=== PATIENT | female | born 1955 | race Caucasian/White ===

== ENCOUNTER → 2016-07-19 | Outpatient (CLI) | payer OTHER ==
[2016-07-19 11:53] LABS: Blood Urea Nitrogen 17 mg/dL (7-17); Non-African American GFR(MDRD) >60 (>60 ml/min/1.73 sqM)
== END | disposition home or self-care (01) ==
LOC: LABWHC1 10:41
PROVIDERS: ATTEND Orthopaedic Surgery Orthopaedic Surgery of the Spine
DX: Z01.812 Encounter for preprocedural laboratory examination (principal); N28.9 Disorder of kidney and ureter, unspecified
CPT/HCPCS: 36415; 82565; 84520

== ENCOUNTER → 2016-08-17 | Outpatient (CLI) | payer OTHER ==
[2016-08-17 10:15] LABS: EKG EKG PERFORMED
[2016-08-17 10:42] LABS: Basophils # (A) 0.1 k/uL (0-0.2); Basophils % (A) 1 %; CH 27.3; CHCM 32.8; Eosinophils # (A) 0.2 k/uL (0-0.7); Eosinophils % (A) 2 %; HCT 43.6 % (34.0-46.0); HDW 2.56; HGB 13.8 gm/dL (11.4-16.0); Luc # (Auto) 0.22; Luc % (Auto) 3; Lymphocytes # (A) 1.8 k/uL (1.0-4.8); Lymphocytes % (A) 23 %; MCH 26.5 pg (25.0-35.0); MCHC 31.6 g/dL (31.0-37.0); MCV 83.9 fL (80.0-100.0); Mean Platelet Volume 7.5; Monocytes # (A) 0.4 k/uL (0-1.0); Monocytes % (A) 6 %; Neutrophils # (A) 4.9 k/uL (1.3-7.7); Neutrophils % (A) 65 %; RDW 13.3 % (11.5-15.5); WBC 7.5 k/uL (3.8-10.6); WBC (Perox) 7.96
[2016-08-17 10:47] LABS: Appearance,Urine Clear (Clear); Bilirubin,Urine Negative (Negative); Glucose,Urine (UA) Negative (Negative); Ketones,Urine Negative (Negative); Leukocyte Esterase,Urine Negative (Negative); Nitrite,Urine Negative (Negative); PH, Urine 6.5 (5.0-8.0); Protein,Urine Negative (Negative); Specific Gravity,Urine 1.006 (1.001-1.035); UA Billing (MACRO vs. MICRO) CHEM; Urobilinogen,Urine <2.0 mg/dL (<2.0)
[2016-08-17 10:50] LABS: Partial Thromboplastin Time 23.1 sec (22.0-30.0); Prothrombin Time 10.1 sec (9.0-12.0)
[2016-08-17 11:06] LABS: Anion Gap 11 mmol/L; Blood Urea Nitrogen 26 mg/dL (7-17); Calcium 9.9 mg/dL (8.4-10.2); Carbon Dioxide 29 mmol/L (22-30); Chloride 98 mmol/L (98-107); Glucose 105 mg/dL (74-99); Non-African American GFR(MDRD) >60 (>60 ml/min/1.73 sqM); Potassium 5.2 mmol/L (3.5-5.1); Sodium 138 mmol/L (137-145)
--- NOTE | 2016-08-17 17:39 | XR ---
EXAMINATION TYPE: XR chest 2V DATE OF EXAM: 08/17/2016 10:18 AM COMPARISON: 09/22/2015 HISTORY: 61-year-old female preoperative evaluation for second spinal fusion. TECHNIQUE: Frontal and lateral views FINDINGS: The cardiomediastinal silhouette, aorta, and pulmonary vasculature are within normal limits. Some str matthew atelectasis in the lower lungs. Otherwise, lungs and pleural spaces are clear. IMPRESSION: No acute cardiopulmonary process.
== END | disposition home or self-care (01) ==
LOC: LABPAT 09:34
PROVIDERS: ATTEND Orthopaedic Surgery Orthopaedic Surgery of the Spine
DX: Z01.818 Encounter for other preprocedural examination (principal); Z01.810 Encounter for preprocedural cardiovascular examination; Z01.812 Encounter for preprocedural laboratory examination
CPT/HCPCS: 71020; 80048; 81003; 85025; 85610; 85730; 87070; 93005

== ENCOUNTER 2016-08-25 05:55 | Inpatient (IN) | payer OTHER ==
[2016-08-18 14:54] VITALS: BMI 30.6
[~2016-08-25 05:55] MED LIST: BACITRACIN 50,000 UNIT, POLYMYXIN B 500,000 UNIT in SODIUM CHLORIDE 0.9% IRRIGATIO 1,00... IRRIGATION ONE; DEXAMETHASONE SOD PHOSPHATE 10 MG/ML 1 ML VIAL IV ONE; HYDROmorphone 1 MG/ML 1 ML SYRINGE IVP PRN; LACTATED RINGERS 1,000 ML IV SCH; ONDANSETRON 4 MG/2 ML VIAL IVP ONE; ceFAZolin 2 GM in SODIUM CHLORIDE 0.9% 100 ML IVPB ONE
[2016-08-25] MEDS ORDERED: LIDOCAINE 1% 20 ML VIAL (10MG/ML) FOR IV START INTRADERMA ONE (06:43)
[2016-08-25] MEDS ORDERED: VANCOMYCIN 1,000 MG in SODIUM CHLORIDE 0.9% 250 ML IVPB STA (07:29)
[2016-08-25] MEDS ORDERED: ePHEDrine 50 MG/ML 1 ML AMP ONE (07:31)
[2016-08-25] MEDS ORDERED: PROPOFOL 10 MG/ML 20 ML VIAL IV ONE (07:31)
[2016-08-25] MEDS ORDERED: HYDROmorphone (PF) 1 MG/ML ONE (07:31)
[2016-08-25] MEDS ORDERED: MIDAZOLAM 2 MG/2 ML VIAL ONE (07:31)
[2016-08-25] MEDS ORDERED: GLYCOPYRROLATE 0.2 MG/ML 2 ML VIAL ONE (07:31)
[2016-08-25] MEDS ORDERED: SUCCINYLCHOLINE CHLORIDE 100 MG/5 ML SYR IV ONE (07:31)
[2016-08-25] MEDS ORDERED: LIDOCAINE 1% INJ 10MG/ML (20 ML MDV) ONE (07:31)
[2016-08-25] MEDS ORDERED: PHENYLEPHRINE-0.9% NACL SYG 1 MG/10 ML SYRINGE ONE (07:31)
[2016-08-25] MEDS ORDERED: fentaNYL (PF) 50 MCG/ML 2 ML AMP ONE (07:31)
[2016-08-25] MEDS ORDERED: FAMOTIDINE 20 MG/2 ML VIAL MISCELLANE ONE (08:05)
[2016-08-25] MEDS ORDERED: BUPIVACAINE (PF) 0.25% 30 ML VIAL SQ ONE ×2 (08:05→10:40)
[2016-08-25] MEDS ORDERED: GELATIN SPONGE,ABSORB (LARGE) 1 EACH SPONGE TOPICAL ONE (08:05)
[2016-08-25] MEDS ORDERED: LIDOCAINE 0.5%-EPI 1:200,000 50 ML VIAL SQ ONE (08:05)
[2016-08-25] MEDS ORDERED: LACTATED RINGERS 1,000 ML IV ONE ×4 (08:35→11:40)
[2016-08-25] MEDS ORDERED: THROMBIN (BOVINE) 5,000 UNIT VIAL MISCELLANE ONE (08:43)
--- NOTE | 2016-08-25 08:55 | XR ---
Intraoperative localization HISTORY: Needle localization Crosstable lateral view of the lumbar spine demonstrates localization device at the posterior L4 leve l. L4-5 anterolisthesis is noted.
--- NOTE | 2016-08-25 09:29 | XR ---
Intraoperative localization HISTORY: Needle localization Crosstable lateral view of the lumbar spine demonstrates localization device at the posterior L5 leve l. L4-5 anterolisthesis is noted.
--- NOTE | 2016-08-25 10:26 | XR ---
EXAMINATION TYPE: XR lumbar spine 2 or 3V DATE OF EXAM: 08/25/2016 10:11 AM CLINICAL HISTORY: Postop hardware placement TECHNIQUE: AP and lateral views of the lumbar spine are obtained intraoperatively. COMPARISON: None. FINDINGS: Pedicular screws are in place at L4 and L5. Intervertebral body spacers noted. Continued anterolisthe sis L4 and L5 of 6 mm. IMPRESSION: Postoperative the pedicular screw placement as noted.
[2016-08-25] MEDS ORDERED: BENZOCAINE/MENTHOL LOZENG 1 EACH LOZENGE MUCOUS MEM PRN (11:10)
[2016-08-25] MEDS ORDERED: HYDROmorphone 1 MG/ML 1 ML SYRINGE IVP PRN (11:10)
[2016-08-25] MEDS ORDERED: HYDROmorphone PCA 5 MG/25 ML SYRINGE IV PRN (11:10)
--- NOTE | 2016-08-25 11:31 | P.OP ---
Date of Procedure: 08/25/16 Preoperative Diagnosis: Spondylolisthesis L4 5 History of prior attempted decompression and fusion L4 5 History of prior wound infection of lumbar spine with subsequent removal of hardware and irrigation and debridement Low back pain with radiculopathy Pseudoarthrosis L4 5 Postoperative Diagnosis: Same No evidence of active infection at the lumbar spine site Pseudoarthrosis at L4 5 Procedure(s) Performed: Revision decompression laminectomy L4 5 Revision fusion L4 5 Exploration of fusion L4 5 with findings of pseudoarthrosis Iliac crest bone graft on the left through a separate fascial incision Local autogenous bone grafting Bone marrow aspiration through a separate fascial incision for left iliac crest Anesthesia: GETA Pathology: none sent Condition: stable Disposition: PACU Description of Procedure: BRIEF OPERATIVE NOTE Preoperative Diagnosis: Spondylolisthesis L4 5, low back pain with lower extremity radiculopathy, history of prior attempted fusion L4 5, history of prior lumbar wound infection with subsequent irrigation and debridement and removal of hardware at L4 5, possible pseudoarthrosis L4 5 Postoperative Diagnosis: Same with findings of pseudoarthrosis L4-L5 Procedure: Revision Laminectomy and decompression L4 5 Revision Posterior lateral decompression and fusion L4 5 Iliac crest bone grafting on the left through separate fascial incision Bone marrow aspiration left iliac crest through separate fascial incision Local autogenous bone grafting Expiration of fusion L4 5 with findings of pseudoarthrosis Use of Cell Saver Use of bone graft extenders Use of neuro monitoring Surgeon: Dr. Palacio Military Equipment Specialist: Robert Arguelles is present throughout the entire the case persistence during positioning, dissection, exposure, visualization, and all crucial elements of the case as well as closure. Anesthesia: General anesthesia Estimated blood loss: Approximately 200 mL Complications: None apparent Components implanted: K2M titanium pedicle screw system, osteoamp bone sponge and chips to supplement the autogenous bone graft and bone marrow aspirate Disposition: To recovery room in good stable condition. OPERATIVE INDICATIONS The patient has had long-standing issues in their lower back and lower extremities. We'll see the patient in the past for her spondylolisthesis and low back and lower extremity issues and she ultimately underwent decompression and fusion at L4 5 over a year ago. She initially had very good results and was very happy with her initial improvement and felt more stable with improvement at her lower extremities. However several months after her surgery she started to develop skin changes and evidence of infection versus ALLERGY. She had significant workup and was on antibiotics but was not having benefit for this. With her worsening symptoms despite aggressive conservative treatment without it would be best for her to proceed with removal of the hardware from L4 5. She had this done with irrigation and debridement and subsequently had long-term antibiotics and resolution of her symptoms and clearing and her skin with findings of a staph epi infection which was treated with the surgery and long-term IV antibiotics. She had clearing of her infection. Unfortunately the patient showed evidence of recurrence of her spondylolisthesis and evidence of pseudoarthrosis at L4 5 after removal of her hardware and had worsening of her pain at her back and to her lower extremities. Her pain was worse with any sort of activity and causing severe debility for her which is felt to be due to the instability at L4 5. It was somewhat unclear as to the cause of the infectious process late after the surgery and apparent stabilization at the area. She went through testing for metals as well as infectious workup given the various issues involved including her exposure to multiple animals despite her meticulous care and cleaning for those. With the patient's worsening symptoms and evidence of instability she again entered significant conservative management to try to treat this but was not having any long-term improvement. The patient has been through conservative treatment. We discussed various treatment options including surgery, and the patient wishes to proceed with revision surgery. I discussed with her the idea possibly seeking further treatment at a tertiary facility given her issues. I discussed these issues with her and her at length. We discussed the risk, patient's alternatives and benefits of surgery including but not limited to, risk of bleeding risk of infection, risk of need for further surgery, risk of decreased, loss of motion, muscle function, malunion nonunion, hardware failure, nerve damage, paralysis, heart attack, blindness and . We also had long discussions regards to the fact that surgery may not alleviate her symptoms and she wishes to proceed with surgical intervention. OPERATIVE SUMMARY After discussing all the risks, patient alternatives and benefits at length, the patient elected to proceed with surgical intervention, signed informed consent, and presented for their procedure. The patient was seen and examined in the preoperative holding area and the surgical site was marked. The patient was given antibiotics and brought to the operating room. The patient was sedated and intubated by anesthesia in standard fashion. The patient was positioned on to the operating room table in a prone position on the appropriate frame which was well-padded and well molded. We were careful to pad any bony prominences and pressure points. We were careful to maintain the patient's cervical spine and good neutral alignment and position throughout. The patient was prepped and draped in a normal standard fashion. An appropriate timeout and keystone protocol performed. We were able to proceed with the surgery. The local wound area was infiltrated with local anesthetic. An incision was made at the midline longitudinally over the appropriate levels utilizing the prior incision over L4 5. Dissection was taken down subcutaneously to the level of the fascia which was split midline. There was severe scar tissue formation and brought to the local anatomy was somewhat distorted. Dissection was taken over the lamina bilaterally over the facet joints and to the transverse processes. There was some bony formation in the posterior lateral gutters and I was able to explore the bony formation but there is found to be motion at L4 5 confirming the pseudoarthrosis. Multiple Intraoperative x-ray was taken which showed a marker at the appropriate level and showing appropriate space over the pedicles at L4 5 With the appropriate level positively confirmed, we were able to proceed with placement of the pedicle holes and screws. I was able to find the prior screw holes at L4 and L5 on the left and L5 on the right and I had to establish a new screw hole at L4 on the right. The patient had all their twitches back. The wound was copiously irrigated and suctioned dry as had been done periodically throughout the case. Screw holes were established similarly at each level. A sharp awl was used to establish the starting hole. It was palpated and found to have good for arroyo and good base. A monitored Steffee probe was used to establish the pedicle hole. It was positioned so there was no stimulation at 12 mA. The hole was palpated and found to have good for arroyo and a good base. The hole was tapped with the appropriate sized tap going up in size using a 6.5 tap in preparation for a 7.5 mm screw. The transverse process and the bone growth around the facets was decorticated with a high-speed bur. I was able to use these holes to place the appropriate size screw and good alignment and good position with good bony purchase. When the screws were inserted there were stimulated, and found to have no stimulation at 30 mA. I was able to turn my attention to the decompression. decompression was performed with a combination of rongeurs, curettes, Kerrison rongeurs and a ball -tip feeler. All of the bone that was removed was stripped and morcellized for use as autogenous bone graft later in the case. I was able to remove some lamina and scar tissue and I was able to obtain good central decompression . There is no evidence of dural tear or leak. Good hemostasis was maintained. The wound was irrigated and suctioned dry. The wound was irrigated and suctioned dry. With the hardware intact, intraoperative x-ray was again taken which showed good alignment and position of the hardware at the appropriate levels at L4 5. We were then able to measure, contour and place the rods and appropriate hardware bilaterally. I was able to place capcrews, tighten them down, and shear them off appropriately. The sheared portion was counted and accounted for. With this intact I was able to place the autogenous bone graft from the iliac crest as well as the osteoamp sponge and chips which were soaked in bone marrow aspirate along with the local autogenous graft with additional bone graft enhancer as necessary into the posterior lateral gutters bilaterally. With the bone graft intact, a stable construct, and good decompression at the appropriate levels, we were able to proceed with closure. Good hemostasis was maintained. There is no evidence of dural tear or leak. The fascia was closed for a watertight closure. The subcutaneous tissue was closed over a superficial drain. The subcuticular tissue was closed with absorbable suture. The wound was cleaned and dried and dressed with the appropriate dressing. The drapes were broken down. The patient was gently rolled back onto their hospital bed being careful to maintain their cervical spine and good neutral alignment and position. They were woken up by anesthesia, extubated, and brought to the recovery room in good stable condition. The patient will be admitted to the hospital for appropriate postoperative care , medical management and monitoring. We will continue to follow them closely about the postoperative course.
[2016-08-25] MEDS: ONDANSETRON 4 MG/2 ML VIAL IVP PRN (11:54)
[2016-08-25] MEDS ORDERED: VANCOMYCIN 1,250 MG in SODIUM CHLORIDE 0.9% 250 ML IVPB SCH (12:00)
[2016-08-25] MEDS ORDERED: PROMETHAZINE INJ 25 MG/ML 1 ML VIAL IVPB ONE (12:05)
[2016-08-25] MEDS: MIDAZOLAM 2 MG/2 ML VIAL IVP ONE ×2 (12:20→12:55)
[2016-08-25] MEDS: SODIUM CHLORIDE 0.9% 1,000 ML IV SCH (14:18)
[2016-08-25] MEDS: NEOMY-BACIT-POLYMX-HC OPHTH OINT 3.5 GM TUBE LEFT EYE SCH ×3 (18:29→20:38)
[2016-08-25] MEDS: SYMBICORT 160-4.5 MCG INHALER INHALATION SCH (19:31)
[2016-08-25] MEDS: CIPROFLOXACIN 0.3% OPHTH SOLN 2.5 ML BTL LEFT EYE SCH (20:37)
[2016-08-25] MEDS: DIAZEPAM 5 MG TAB PO PRN (20:57)
[2016-08-25] MEDS: VANCOMYCIN 1,250 MG in SODIUM CHLORIDE 0.9% 250 ML IVPB SCH (20:58)
--- NOTE | 2016-08-25 21:41 | P.CONS ---
History of Present Illness - Reason for Consult Consult date: 08/25/16 - Chief Complaint History of infection to her back - History of Present Illness Very pleasant 61-year-old woman who is known to me from her hospitalizations of last year and her office care after. When she was first evaluated she's having difficulty with severe ongoing back pain with radicular symptoms. She had severe L4-L5 disease. Then after symptomatic and conservative therapy she remained with significant discomfort and consequently in May 2015 underwent a L4-L5 decompression and fusion. After the surgery she had several areas that opened and gave her difficulty there were raised and erythematous and uncomfortable because of this she was taken to the operating room and her hardware was removed with concerns to infection as well as ALLERGY. There is concerned to ALLERGY to some components of the implant. The patient eventually was treated for the potential for an infection and had extensive wound care. After the extensive wound care she eventually healed the very atypical skin eruption that occurred. It was very uncomfortable with significant burning component. She is in well over time. Is now been admitted for revision L4-L5 fusion is of ongoing pain and compression from the disease. Concerns to recurrence of his skin condition. The patient was seen preoperatively and was given mupirocin as well as Hibiclens. Received antibiotic therapy with vancomycin for prophylaxis. She is now postoperative and doing remarkably well. 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 Review of Systems HEENT:Denies headache or acute visual change. Denies sinus or mouth discomforts. Denies neck stiffness or pain. Denies significant oral cavity pain. Denies difficulty on swallowing. Lungs: Denies significant shortness of breath, cough, sputum production, or hemoptysis. Cardiovascular: Denies significant shortness of breath, chest pain, chest wall pain, orthopnea, dyspnea on exertion, syncope Gastrointestinal:Denies nausea, vomiting, diarrhea, constipation, hematemesis, melena, hematochezia. No no significant change of bowel habit noticed. Musculoskeletal: denies significant myalgias or arthralgias. No new joint swelling. Has chronic back pain. Skin: No current complaints. But is concerned that she'll have recurrence of her skin lesions. Neuro: Denies headache or visual change. Denies any new onset weakness or difficulty with ambulation. Denies falls or seizures. Psychiatric:Denies anxiety or depression. Endocrine: Denies significant fatigue, denies significant weight loss or weight gain. Past Medical History Past Medical History: Cancer, COPD, GERD/Reflux, Hyperlipidemia, Hypertension, Osteoarthritis (OA), Pneumonia, Thyroid Disorder Additional Past Medical History / Comment(s): SPONDYLOLISTHESIS, migraines, " occ heart races", dry skin, hx skin cancer, spinal stenosis, degenerative disk disease(has brace), History of Any Multi-Drug Resistant Organisms: None Reported Past Surgical History: Back Surgery, Hysterectomy, Orthopedic Surgery, Tonsillectomy Additional Past Surgical History / Comment(s): 05-28-15 LAMINECTOMY AND DECOMPRESSION L4-5(got staph infecton and had hardware removed 09/20/15), PORFIRIO BUNIONECTOMY, porfirio CARPAL TUNNEL, Past Anesthesia/Blood Transfusion Reactions: Motion Sickness, Postoperative Nausea & Vomiting (PONV) Past Psychological History: No Psychological Hx Reported Additional Psychological History / Comment(s): HX DYSLEXIA Smoking Status: Former smoker Past Alcohol Use History: None Reported Additional Past Alcohol Use History / Comment(s): quit smoking 2001, smoked for 33 yrs- up to 3 PPD, Past Drug Use History: None Reported - Past Family History Sister(s) Family Medical History: Cancer Mother Family Medical History: COPD Additional Family Medical History / Comment(s): EMPHYSEMA Father Family Medical History: Myocardial Infarction ([place]) Medications and Allergies Home Medications and Allergies Comment(s): Current Medications Amitriptyline HCl (Elavil) 150 mg PO HS [facility] Benzocaine/Menthol (Cepacol Lozenge) 1 each MUCOUS MEM Q4HR PRN PRN Reason: Sore Throat Budesonide/Formoterol Fumarate (Symbicort 160-4.5 Mcg Inhaler) 2 puff INHALATION RT-BID [facility] Last Admin: 08/25/16 19:31 Dose: Not Given Cholecalciferol (Vitamin D3) 2,000 unit PO DAILY [facility] Ciprofloxacin (Cipro Ophth Soln) 1 drops LEFT EYE Q4HR [facility] Last Admin: 08/25/16 20:37 Dose: 1 drops Diazepam (Valium) 5 mg PO QID PRN PRN Reason: Anxiety Last Admin: 08/25/16 20:57 Dose: 5 mg Ezetimibe (Zetia) 10 mg PO DAILY [facility] Lisinopril/HCTZ (Zestoretic 20-25) 1 each PO DAILY [facility] Hydromorphone HCl (Dilaudid) 0.5 mg IVP Q4HR PRN PRN Reason: Pain Hydromorphone HCl (Dilaudid) 1 mg IVP Q4HR PRN PRN Reason: Pain Hydromorphone HCl (Dilaudid Food Stylist) 0.1 mg IV PER PROTOCOL PRN; Protocol PRN Reason: Pain Last Admin: 08/25/16 13:59 Dose: 0.1 mg Sodium Chloride (Saline 0.9%) 1,000 mls @ 75 mls/hr IV .[id number] [facility] Last Admin: 08/25/16 14:18 Dose: 75 mls/hr Vancomycin HCl 1,250 mg/ (Sodium Chloride) 250 mls @ 125 mls/hr IVPB Q24HR@ 2200 [facility] Last Admin: 08/25/16 20:58 Dose: 125 mls/hr Levothyroxine Sodium (Synthroid) 100 mcg PO DAILY@0630 [facility] Montelukast Sodium (Singulair) 10 mg PO DAILY [facility] Multivitamins (Theragran) 1 each PO DAILY@1200 [facility] Neomycin/Polymyxin/Bacitr/Hydrocort (Cortisporin Ophth Oint) 1 applic LEFT EYE Q3HR [facility] Last Admin: 08/25/16 20:38 Dose: 1 applic Ondansetron HCl (Zofran) 4 mg IVP Q8HR PRN PRN Reason: Nausea Last Admin: 08/25/16 11:54 Dose: 4 mg Tizanidine HCl (Zanaflex) 4 mg PO Q4HR PRN PRN Reason: Muscle Spasm Home Medications Medication Instructions Recorded Confirmed Type Cholecalciferol [Vitamin D3] 2,000 unit PO DAILY 05/19/15 08/25/16 History Levothyroxine Sodium [Synthroid] 100 mcg PO DAILY 05/19/15 08/25/16 History Lisinopril/Hydrochlorothiazide 1 tab PO DAILY 09/20/15 08/25/16 History [Zestoretic 20-25 mg Tablet] Amitriptyline HCl [Elavil] 150 mg PO HS 08/18/16 08/25/16 History Ezetimibe [Zetia] 10 mg PO DAILY 08/18/16 08/25/16 History Mometasone/Formoterol [Dulera 200 2 puff INHALATION RT-BID 08/18/16 08/25/16 History Mcg/5 Mcg Inhaler] Montelukast [Singulair] 10 mg PO DAILY 08/18/16 08/25/16 History Multivit-Min/FA/Lycopene/Lut 1 tab PO DAILY 08/18/16 08/25/16 History [Centrum Silver Tablet] tiZANidine [Zanaflex] 4 mg PO Q4HR PRN 08/18/16 08/25/16 History Mupirocin 2% Oint [Bactroban 2% 1 applic NASAL BID 08/25/16 08/25/16 History Oint] Allergies Allergy/AdvReac Type Severity Reaction Status Date / Time acetaminophen Allergy Rash/Hives Verified 08/18/16 14:39 [From Darvocet-N] aspirin Allergy Rash/Hives Verified 08/18/16 14:39 [From Empirin W/Codeine] azithromycin Allergy Rash/Hives Verified 08/18/16 14:39 baclofen Allergy Rash/Hives Verified 08/18/16 14:39 butalbital [From Fioricet] Allergy Rash/Hives Verified 08/18/16 14:39 caffeine [From Fioricet] Allergy Rash/Hives Verified 08/18/16 14:39 codeine Allergy Rash/Hives Verified 08/18/16 14:39 codeine phosphate Allergy Rash/Hives Verified 08/18/16 14:39 [From Empirin W/Codeine] cyclobenzaprine HCl Allergy Rash/Hives Verified 08/18/16 14:39 [From Flexeril] etodolac [From Lodine] Allergy Rash/Hives Verified 08/18/16 14:39 ezetimibe [From Vytorin] Allergy Rash/Hives Verified 08/18/16 14:39 flurazepam HCl [From Dalmane] Allergy Rash/Hives Verified 08/18/16 14:39 hydrocodone [From [place]] Allergy Rash/Hives Verified 08/18/16 14:40 hydrocodone bitartrate Allergy Rash/Hives Verified 08/18/16 14:39 [From Vicodin] ketorolac tromethamine Allergy Rash/Hives Verified 08/18/16 14:39 [From Toradol] meperidine HCl [From Demerol] Allergy Rash/Hives Verified 08/18/16 14:39 orphenadrine citrate Allergy Rash/Hives Verified 08/18/16 14:39 [From Norflex] Penicillins Allergy Rash/Hives Verified 08/18/16 14:39 pentazocine lactate Allergy Rash/Hives Verified 08/18/16 14:39 [From Talwin] propoxyphene HCl Allergy Rash/Hives Verified 08/18/16 14:39 [From Darvon] propoxyphene napsylate Allergy Rash/Hives Verified 08/18/16 14:39 [From Darvocet-N] simvastatin [From Vytorin] Allergy Rash/Hives Verified 08/18/16 14:39 Physical Exam Vitals: Vital Signs Temp Pulse Pulse Pulse Resp BP Pulse Ox 08/25/16 16:48 97.8 F 80 18 127/60 98 08/25/16 16:00 16 08/25/16 13:23 98.3 F 90 16 171/83 96 08/25/16 13:15 82 16 101/46 97 08/25/16 13:00 91 16 89/45 97 08/25/16 12:45 90 16 89/50 95 08/25/16 12:30 86 16 90/54 95 08/25/16 12:15 86 16 86/55 94 L 08/25/16 12:03 91 16 112/58 08/25/16 11:48 92 16 102/56 96 08/25/16 11:33 87 16 86/54 100 08/25/16 11:18 97 F L 82 18 102/55 100 08/25/16 06:40 98.1 F 80 16 98 Intake and Output 08/25/16 08/25/16 08/25/16 06:59 14:59 22:59 Intake Total 3152 Output Total 775 440 Balance 2377 -440 Intake: IV 3092 Sodium Chloride 0.9% 1, 40 000 ml @ 75 mls/hr IV . [id number] [facility] Rx#:[id number] Oral 60 Output: Drainage 90 Back 90 Urine 525 350 Estimated Blood Loss 250 Other: Voiding Method Indwelling Catheter Weight 73.482 kg Patient Weight 08/26/16 06:59 Weight 73.482 kg 61-year-old woman who is somewhat uncomfortable. However she does not appear toxic HEENT: Anicteric conjunctiva are pink and moist nasal mucosa grossly intact without significant lesions, there is no thrush. Neck: The neck is supple without significant lymphadenopathy or thyromegaly. Lungs: Symmetrical air entry. Few expiratory wheezes are scattered. No bronchial sounds. No dullness or egophony. Heart: Regular rate and rhythm with an audible S1-S2, soft S4. There is no significant murmur click or rub, PMI was nondisplaced. Abdomen: Positive bowel sounds soft and nontender without palpable masses or organomegaly. There was no guarding or rebound. Extremities: The upper extremities have excellent pulses they are symmetric, no significant petechiae or telangiectasia. No splinter hemorrhages were noted. The lower extremities are free from significant edema. The peripheral pulses were 2+ and symmetric. Neuro: Awake alert oriented to person place and time. There are no acute new gross focal sensory motor deficits. The back is evidence of the surgical dressing in place. The drainage tube is still in place with a sanguinous drainage being noted. Results CBC & Chem 7: 08/25/16 06:43 Assessment and Plan (1) Spinal stenosis at L4-L5 level Narrative/Plan: 61-year-old woman presents to Hospital for surgical correction of her ongoing L4 -L5 spinal stenosis. She had prior laminectomy and hardware. Concern is to become infected and was removed. His worsening symptoms and his remitted to further stabilization to improve her severe pain syndrome. Postoperatively she is doing well. She did have a significant skin eruption after her last surgery. We'll monitor closely. Received antibiotic prophylaxis with vancomycin. And tolerated that well. She will need extensive counseling after discharge about her activity and limitations to prevent rapid reinjury. Status: Acute
[2016-08-25] MEDS: HYDROmorphone 1 MG/ML 1 ML SYRINGE IVP PRN (21:49)
[2016-08-25] MEDS: AMITRIPTYLINE HCL 50 MG TAB PO SCH (22:00)
[2016-08-26] MEDS: HYDROmorphone 1 MG/ML 1 ML SYRINGE IVP PRN ×2 (01:07→04:37)
[2016-08-26] MEDS: CIPROFLOXACIN 0.3% OPHTH SOLN 2.5 ML BTL LEFT EYE SCH ×7 (01:08→23:53)
[2016-08-26] MEDS: NEOMY-BACIT-POLYMX-HC OPHTH OINT 3.5 GM TUBE LEFT EYE SCH ×9 (01:09→23:53)
[2016-08-26] MEDS: SODIUM CHLORIDE 0.9% 1,000 ML IV SCH (04:42)
[2016-08-26] MEDS: ONDANSETRON 4 MG/2 ML VIAL IVP PRN (06:28)
[2016-08-26] MEDS: DIAZEPAM 5 MG TAB PO PRN ×2 (07:20→21:05)
[2016-08-26 07:24] LABS: Basophils % (A) 0 %; CH 26.9; CHCM 32.1; Eosinophils % (A) 0 %; HCT 37.2 % (34.0-46.0); HDW 2.55; HGB 11.6 gm/dL (11.4-16.0); Luc # (Auto) 0.22; Luc % (Auto) 2; Lymphocytes # (A) 1.1 k/uL (1.0-4.8); Lymphocytes % (A) 10 %; MCH 26.4 pg (25.0-35.0); MCHC 31.3 g/dL (31.0-37.0); MCV 84.4 fL (80.0-100.0); Mean Platelet Volume 6.7; Monocytes # (A) 0.6 k/uL (0-1.0); Monocytes % (A) 6 %; Neutrophils # (A) 8.6 k/uL (1.3-7.7); Neutrophils % (A) 81 %; RDW 13.3 % (11.5-15.5); WBC 10.6 k/uL (3.8-10.6); WBC (Perox) 11.43
[2016-08-26] MEDS: SYMBICORT 160-4.5 MCG INHALER INHALATION SCH ×2 (07:43→19:16)
[2016-08-26 07:45] LABS: Anion Gap 8 mmol/L; Blood Urea Nitrogen 13 mg/dL (7-17); Calcium 8.6 mg/dL (8.4-10.2); Carbon Dioxide 27 mmol/L (22-30); Chloride 97 mmol/L (98-107); Glucose 132 mg/dL (74-99); Non-African American GFR(MDRD) >60 (>60 ml/min/1.73 sqM); Potassium 4.1 mmol/L (3.5-5.1); Sodium 132 mmol/L (137-145)
[2016-08-26] MEDS: MONTELUKAST 10 MG TAB PO SCH (07:48)
[2016-08-26] MEDS: CHOLECALCIFEROL 1,000 UNIT TAB PO SCH (07:48)
[2016-08-26] MEDS: LEVOTHYROXINE 100 MCG TAB PO SCH (07:48)
[2016-08-26] MEDS: EZETIMIBE 10 MG TAB PO SCH (07:48)
[2016-08-26] MEDS ORDERED: LISINOPRIL-HCTZ 20-25 MG 1 EACH TAB PO SCH (09:00)
--- NOTE | 2016-08-26 10:19 | P.PN ---
Progress Note - Text Postoperative day #1 Patient is seen and examined today at bedside. The patient has some pain around the surgical site as expected. Pain is being controlled with medication. She has been able to train in the hallway with physical therapy and feels comfortable with her ambulation. She is wearing her brace. She is doing well with her legs and has soreness at her back as expected particular with changing positions. Physical Exam Afebrile with stable vital signs Abdomen is soft nontender. Chest has good excursion deep and space expiration The incision site is clean dry and intact. No erythema there is no purulence. Dressings are intact without significant drainage Extremities have not had neurologic change from prior to surgery. She has sustained dorsal flexion plantar flexion and extensor hallucis longus intact. # 1 status post Calves and thighs were soft nontender without evidence of DVT. Assessment/Plan Postoperative day #1 status post revision decompression and fusion L4 5 for pseudoarthrosis at L4 5 with history of prior decompression and fusion at that level. Patient is progressing as expected from the surgery. She has done well with her mobilization is already walking down the mireles with a walker. She has multiple ALLERGIES and is unable to take most of her oral pain medications that she has tried in the past. She does somewhat adequately with the dye lauded IV and has had morphine in the past. She may be candidate for oral morphine sulfate as we transition her off the IV medications in the next 1-2 days. We will continue to increase the patient's mobilization with therapy. We will continue pain control with oral or IV medications. We'll continue to follow patient closely.
--- NOTE | 2016-08-26 11:46 | P.CONS ---
History of Present Illness - Reason for Consult Consult date: 08/26/16 Medical management Requesting physician: Shabbir Palacio - Chief Complaint Status post revision with decompression and fusion of L4 and L5 - History of Present Illness This is a 61-year-old female with a known past medical history of this L4-L5 spinal likely cysts, spinal stenosis, hyperlipidemia, hypertension, COPD and hypothyroidism. In May 2015 patient had a decompression and fusion of L4 and L5. She was doing well and then 4 months later developed an infection at surgical site. She completed IV vancomycin treatment. However patient did have to have the equipment removed from her spine. She then further developed back pain and therefore underwent a revision with decompression and fusion of L4 and L5. She is followed by infectious disease and is already receiving IV vancomycin. Estimated blood loss of 200ml. No complications reported during surgery. Patient has been having some nausea no actual vomiting. Patient has multiple ALLERGIES to medications. Patient's also been having some lower blood pressures. She had a blood pressure of 89/52. Repeat blood pressure 106/53. Blood pressure medications were held. Patient denies any chest pain or shortness breath. Denies any vomiting. Denies any bowel movement changes or urinary symptoms. She does admit to having nausea as well as some dizziness when she did get up to walk earlier today. Patient has Zofran and Protonix. We 've been consulted for medical management. Review of Systems Please refer to HPI otherwise unremarkable Past Medical History Past Medical History: Cancer, COPD, GERD/Reflux, Hyperlipidemia, Hypertension, Osteoarthritis (OA), Pneumonia, Thyroid Disorder Additional Past Medical History / Comment(s): SPONDYLOLISTHESIS, migraines, " occ heart races", dry skin, hx skin cancer, spinal stenosis, degenerative disk disease(has brace), History of Any Multi-Drug Resistant Organisms: None Reported Past Surgical History: Back Surgery, Hysterectomy, Orthopedic Surgery, Tonsillectomy Additional Past Surgical History / Comment(s): 05-28-15 LAMINECTOMY AND DECOMPRESSION L4-5(got staph infecton and had hardware removed 09/20/15), PORFRIIO BUNIONECTOMY, porfirio CARPAL TUNNEL, Past Anesthesia/Blood Transfusion Reactions: Motion Sickness, Postoperative Nausea & Vomiting (PONV) Past Psychological History: No Psychological Hx Reported Additional Psychological History / Comment(s): HX DYSLEXIA Smoking Status: Former smoker Past Alcohol Use History: None Reported Additional Past Alcohol Use History / Comment(s): quit smoking 2001, smoked for 33 yrs- up to 3 PPD, Past Drug Use History: None Reported - Past Family History Sister(s) Family Medical History: Cancer Mother Family Medical History: COPD Additional Family Medical History / Comment(s): EMPHYSEMA Father Family Medical History: Myocardial Infarction ([place]) Medications and Allergies Home Medications Medication Instructions Recorded Confirmed Type Cholecalciferol [Vitamin D3] 2,000 unit PO DAILY 05/19/15 08/25/16 History Levothyroxine Sodium [Synthroid] 100 mcg PO DAILY 05/19/15 08/25/16 History Lisinopril/Hydrochlorothiazide 1 tab PO DAILY 09/20/15 08/25/16 History [Zestoretic 20-25 mg Tablet] Amitriptyline HCl [Elavil] 150 mg PO HS 08/18/16 08/25/16 History Ezetimibe [Zetia] 10 mg PO DAILY 08/18/16 08/25/16 History Mometasone/Formoterol [Dulera 200 2 puff INHALATION RT-BID 08/18/16 08/25/16 History Mcg/5 Mcg Inhaler] Montelukast [Singulair] 10 mg PO DAILY 08/18/16 08/25/16 History Multivit-Min/FA/Lycopene/Lut 1 tab PO DAILY 08/18/16 08/25/16 History [Centrum Silver Tablet] tiZANidine [Zanaflex] 4 mg PO Q4HR PRN 08/18/16 08/25/16 History Mupirocin 2% Oint [Bactroban 2% 1 applic NASAL BID 08/25/16 08/25/16 History Oint] Allergies Allergy/AdvReac Type Severity Reaction Status Date / Time acetaminophen Allergy Rash/Hives Verified 08/18/16 14:39 [From Darvocet-N] aspirin Allergy Rash/Hives Verified 08/18/16 14:39 [From Empirin W/Codeine] azithromycin Allergy Rash/Hives Verified 08/18/16 14:39 baclofen Allergy Rash/Hives Verified 08/18/16 14:39 butalbital [From Fioricet] Allergy Rash/Hives Verified 08/18/16 14:39 caffeine [From Fioricet] Allergy Rash/Hives Verified 08/18/16 14:39 codeine Allergy Rash/Hives Verified 08/18/16 14:39 codeine phosphate Allergy Rash/Hives Verified 08/18/16 14:39 [From Empirin W/Codeine] cyclobenzaprine HCl Allergy Rash/Hives Verified 08/18/16 14:39 [From Flexeril] etodolac [From Lodine] Allergy Rash/Hives Verified 08/18/16 14:39 ezetimibe [From Vytorin] Allergy Rash/Hives Verified 08/18/16 14:39 flurazepam HCl [From Dalmane] Allergy Rash/Hives Verified 08/18/16 14:39 hydrocodone [From Lima] Allergy Rash/Hives Verified 08/18/16 14:40 hydrocodone bitartrate Allergy Rash/Hives Verified 08/18/16 14:39 [From Vicodin] ketorolac tromethamine Allergy Rash/Hives Verified 08/18/16 14:39 [From Toradol] meperidine HCl [From Demerol] Allergy Rash/Hives Verified 08/18/16 14:39 orphenadrine citrate Allergy Rash/Hives Verified 08/18/16 14:39 [From Norflex] Penicillins Allergy Rash/Hives Verified 08/18/16 14:39 pentazocine lactate Allergy Rash/Hives Verified 08/18/16 14:39 [From Talwin] propoxyphene HCl Allergy Rash/Hives Verified 08/18/16 14:39 [From Darvon] propoxyphene napsylate Allergy Rash/Hives Verified 08/18/16 14:39 [From Darvocet-N] simvastatin [From Vytorin] Allergy Rash/Hives Verified 08/18/16 14:39 Physical Exam Vitals: Vital Signs Temp Pulse Pulse Resp BP Pulse Ox 08/26/16 08:43 106/53 08/26/16 07:55 61 18 08/26/16 07:23 98.1 F 61 18 89/52 90 L 08/26/16 00:00 90 16 08/25/16 22:10 98.3 F 90 16 93/51 92 L 08/25/16 16:48 97.8 F 80 18 127/60 98 08/25/16 16:00 16 08/25/16 13:23 98.3 F 90 16 171/83 96 08/25/16 13:15 82 16 101/46 97 08/25/16 13:00 91 16 89/45 97 08/25/16 12:45 90 16 89/50 95 08/25/16 12:30 86 16 90/54 95 08/25/16 12:15 86 16 86/55 94 L 08/25/16 12:03 91 16 112/58 08/25/16 11:48 92 16 102/56 96 Intake and Output 08/25/16 08/26/16 08/26/16 22:59 06:59 14:59 Intake Total 1580 Output Total 490 2680 1000 Balance 1090 -2680 -1000 Intake: Oral 1580 Output: Drainage 140 30 Back 140 30 Urine 350 2650 1000 Other: Voiding Method Indwelling Catheter Indwelling Catheter Indwelling Catheter Weight 73.482 kg Patient Weight 08/27/16 06:59 Weight 73.482 kg Head normocephalic Neck supple Lungs clear to auscultation bilaterally no wheezing or crackles Heart regular rate and rhythm S1-S2, no rub or gallop Abdomen is soft nontender nondistended positive bowel sounds no hepatosplenomegaly Extremities no edema Neuro alert and orientated to 3 Back drainage tube in place. Dressings clean dry and intact. Results CBC & Chem 7: 08/26/16 06:59 08/26/16 06:59 Labs: Abnormal Lab Results - Last 24 Hours (Table) 08/26/16 08/26/16 Range/Units 06:59 06:59 Neutrophils # 8.6 H (1.3-7.7) k/uL Sodium 132 L (137-145) mmol/L Chloride 97 L (98-107) mmol/L Glucose 132 H (74-99) mg/dL Assessment and Plan Plan: 1. Postop day #1 status post revision decompression and fusion of L4 and L5 for pseudoarthrosis at L4-L5. Continue with pain control per spinal surgery. Continue PT OT. Dr. Palacio has ordered oral morphine for pain control 2. Essential hypertension: Blood pressures in the lower side. We'll discontinue lisinopril and hydrochlorothiazide. Continue with IV fluid hydration and monitoring 3. Previous spinal infection after surgery had completed antibiotics and had removal of hardware. Infectious disease is following and patient is currently on IV vancomycin. No active infection with reported per OR report 4. Hypothyroidism resume her Synthroid 5. History of COPD: Stable continue Symbicort and Singulair 6. Hyperlipidemia continue that he 7. Nausea may be related to her pain medications. Pain meds were adjusted per Dr. Palacio. Also will continue Zofran and add Protonix IV. Continue to monitor Thank you for this consultation. We will continue to follow along with you. Time with Patient: Greater than 30 (Greater than 50% of the total time spent in counseling and coordination of care.I performed an examination of the patient and discussed their management with the physician Aquaculture Farmer. I have reviewed the Physician Aquaculture Farmer's notes and agree with the documented findings and plan of care)
[2016-08-26] MEDS: MULTIVITAMINS, THERA 1 EACH TAB PO SCH (12:23)
[2016-08-26] MEDS: PANTOPRAZOLE 40 MG/10 ML VIAL IVP SCH (12:25)
[2016-08-26] MEDS: MORPHINE SULFATE IR 15 MG TABLET PO PRN ×2 (12:59→21:06)
--- NOTE | 2016-08-26 13:22 | CONS ---
DATE OF CONSULTATION: DATE OF SERVICE: 08/25/2016 CHIEF COMPLAINT: Pain left eye. HISTORY OF PRESENT ILLNESS: The patient is a 61-year-old female who underwent surgery today and reports pain in her left eye postoperatively. The pain occurred suddenly upon awakening from surgery. It is constant. The symptoms are associated with tearing and discomfort. There is no vision loss. REVIEW OF SYSTEMS: The patient denies fever, weight gain or weight loss. The patient denies nausea or vomiting. The remainder of review of systems is negative. CURRENT MEDICATIONS: Vitamin D3, iron, diazepam, ( ), Zetia, amitriptyline, Singulair, Synthroid. PAST MEDICAL HISTORY: Hypertension, hyperlipidemia, hypothyroidism. ALLERGIES: PENICILLIN, TORADOL, CODEINE, NORFLEX, TALWIN, DEMEROL, DARVOCET, ( ), VICODIN, EMPIRIN WITH CODEINE, FIORICET, ( ) FLEXERIL, LORTAB, LODINE, LORCET, BACLOFEN, VYTORIN. PAST SURGICAL HISTORY: Hysterectomy, , spinal surgery. FAMILY HISTORY: Positive for hypertension. SOCIAL HISTORY: Previously smoked and currently has quit. Denies alcohol use. OPHTHALMIC EXAM: Visual acuity is 20/50 in the right eye and 20/60 in the left eye at near. There is no afferent pupillary defect. Extraocular movements are full. Cornea exam reveals a corneal abrasion on the left cornea. The remainder of the ophthalmic exam is normal in both eyes. IMPRESSION AND PLAN: Corneal abrasion, left eye. I recommend the patient start ciprofloxacin ophthalmic drops q.i.d. x5 days. The patient should be seen in the office for followup after discharge. Thank you for allowing me to participate in this patient's care.
[2016-08-26] MEDS ORDERED: MORPHINE SULFATE 4 MG/ML SYRINGE IVP STA (13:49)
[2016-08-26] MEDS: MORPHINE SULFATE 2 MG/ML SYRINGE IVP PRN (17:19)
[2016-08-26] MEDS: AMITRIPTYLINE HCL 50 MG TAB PO SCH (20:18)
--- NOTE | 2016-08-26 21:03 | P.PN ---
Subjective Principal diagnosis: History of infection to her back Very pleasant 61-year-old woman who is known to me from her hospitalizations of last year and her office care after. When she was first evaluated she's having difficulty with severe ongoing back pain with radicular symptoms. She had severe L4-L5 disease. Then after symptomatic and conservative therapy she remained with significant discomfort and consequently in May 2015 underwent a L4-L5 decompression and fusion. After the surgery she had several areas that opened and gave her difficulty there were raised and erythematous and uncomfortable because of this she was taken to the operating room and her hardware was removed with concerns to infection as well as ALLERGY. There is concerned to ALLERGY to some components of the implant. The patient eventually was treated for the potential for an infection and had extensive wound care. After the extensive wound care she eventually healed the very atypical skin eruption that occurred. It was very uncomfortable with significant burning component. She is in well over time. Is now been admitted for revision L4-L5 fusion is of ongoing pain and compression from the disease. Concerns to recurrence of his skin condition. The patient was seen preoperatively and was given mupirocin as well as Hibiclens. Received antibiotic therapy with vancomycin for prophylaxis. She is now postoperative and doing remarkably well. 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 Miserable today. The hydromorphone drip cause nausea and emesis and she will not take more this. Is being converted to morphine. Objective - Vital Signs Vital signs: Vital Signs Temp 97.9 F 08/26/16 16:00 Pulse 88 08/26/16 16:00 Resp 20 08/26/16 16:00 BP 97/46 08/26/16 16:00 Pulse Ox 93 L 08/26/16 16:00 Intake & Output 08/26/16 08/26/16 08/27/16 06:59 18:59 06:59 Intake Total 1580 360 Output Total 2730 1430 Balance -1150 -1070 Weight 73.482 kg Intake: Oral 1580 360 Output: Drainage 80 30 Back 80 30 Urine 2650 1400 Other: Voiding Method Indwelling Catheter Indwelling Catheter - Exam 61-year-old woman who is somewhat uncomfortable. However she does not appear toxic HEENT: Anicteric conjunctiva are pink and moist nasal mucosa grossly intact without significant lesions, there is no thrush. Neck: The neck is supple without significant lymphadenopathy or thyromegaly. Lungs: Symmetrical air entry. Few expiratory wheezes are scattered. No bronchial sounds. No dullness or egophony. Heart: Regular rate and rhythm with an audible S1-S2, soft S4. There is no significant murmur click or rub, PMI was nondisplaced. Abdomen: Positive bowel sounds soft and nontender without palpable masses or organomegaly. There was no guarding or rebound. Extremities: The upper extremities have excellent pulses they are symmetric, no significant petechiae or telangiectasia. No splinter hemorrhages were noted. The lower extremities are free from significant edema. The peripheral pulses were 2+ and symmetric. Neuro: Awake alert oriented to person place and time. There are no acute new gross focal sensory motor deficits. The back is evidence of the surgical dressing in place. The drainage tube is still in place with a sanguinous drainage being noted. - Labs CBC & Chem 7: 08/26/16 06:59 08/26/16 06:59 Labs: Abnormal Lab Results - Last 24 Hours (Table) 08/26/16 08/26/16 Range/Units 06:59 06:59 Neutrophils # 8.6 H (1.3-7.7) k/uL Sodium 132 L (137-145) mmol/L Chloride 97 L (98-107) mmol/L Glucose 132 H (74-99) mg/dL Laboratory Results WBC 10.6 k/uL (3.8-10.6) 08/26/16 06:59 RBC 4.40 m/uL (3.80-5.40) 08/26/16 06:59 Hgb 11.6 gm/dL (11.4-16.0) 08/26/16 06:59 Hct 37.2 % (34.0-46.0) 08/26/16 06:59 MCV 84.4 fL (80.0-100.0) 08/26/16 06:59 MCH 26.4 pg (25.0-35.0) 08/26/16 06:59 MCHC 31.3 g/dL (31.0-37.0) 08/26/16 06:59 RDW 13.3 % (11.5-15.5) 08/26/16 06:59 Plt Count 198 k/uL (150-450) 08/26/16 06:59 Neutrophils % 81 % 08/26/16 06:59 Lymphocytes % 10 % 08/26/16 06:59 Monocytes % 6 % 08/26/16 06:59 Eosinophils % 0 % 08/26/16 06:59 Basophils % 0 % 08/26/16 06:59 Neutrophils # 8.6 k/uL (1.3-7.7) H 08/26/16 06:59 Lymphocytes # 1.1 k/uL (1.0-4.8) 08/26/16 06:59 Monocytes # 0.6 k/uL (0-1.0) 08/26/16 06:59 Eosinophils # 0.0 k/uL (0-0.7) 08/26/16 06:59 Basophils # 0.0 k/uL (0-0.2) 08/26/16 06:59 Sodium 132 mmol/L (137-145) L 08/26/16 06:59 Potassium 4.1 mmol/L (3.5-5.1) 08/26/16 06:59 Chloride 97 mmol/L (98-107) L 08/26/16 06:59 Carbon Dioxide 27 mmol/L (22-30) 08/26/16 06:59 Anion Gap 8 mmol/L 08/26/16 06:59 BUN 13 mg/dL (7-17) 08/26/16 06:59 Creatinine 0.84 mg/dL (0.52-1.04) 08/26/16 06:59 Est GFR (MDRD) Af Amer >60 (>60 ml/min/1.73 sqM) 08/26/16 06:59 Est GFR (MDRD) Non-Af >60 (>60 ml/min/1.73 sqM) 08/26/16 06:59 Glucose 132 mg/dL (74-99) H 08/26/16 06:59 Calcium 8.6 mg/dL (8.4-10.2) 08/26/16 06:59 Blood Type O Positive 08/17/16 10:24 Blood Type Recheck No 08/17/16 10:24 Antibody Screen NEGATIVE 08/17/16 10:24 Spec Expiration Date 08/27/16232308/17/16 10:24 Assessment and Plan (1) Spinal stenosis at L4-L5 level Narrative/Plan: 61-year-old woman presents to Hospital for surgical correction of her ongoing L4 -L5 spinal stenosis. She had prior laminectomy and hardware. Concern is to become infected and was removed. His worsening symptoms and his remitted to further stabilization to improve her severe pain syndrome. Postoperatively she is doing well. She did have a significant skin eruption after her last surgery. We'll monitor closely. Received antibiotic prophylaxis with vancomycin. And tolerated that well. She will need extensive counseling after discharge about her activity and limitations to prevent rapid reinjury. MS IV push times one offer for pain control. Status: Acute
[2016-08-26] MEDS: VANCOMYCIN 1,250 MG in SODIUM CHLORIDE 0.9% 250 ML IVPB SCH (21:06)
[2016-08-27] MEDS: NEOMY-BACIT-POLYMX-HC OPHTH OINT 3.5 GM TUBE LEFT EYE SCH ×8 (03:50→23:20)
[2016-08-27] MEDS: CIPROFLOXACIN 0.3% OPHTH SOLN 2.5 ML BTL LEFT EYE SCH ×6 (03:50→23:20)
[2016-08-27] MEDS: tiZANidine 4 MG TAB PO PRN ×2 (03:51→16:12)
[2016-08-27] MEDS: MORPHINE SULFATE IR 15 MG TABLET PO PRN ×2 (05:28→16:12)
[2016-08-27] MEDS: LEVOTHYROXINE 100 MCG TAB PO SCH (06:15)
[2016-08-27] MEDS: SYMBICORT 160-4.5 MCG INHALER INHALATION SCH ×2 (08:21→19:05)
[2016-08-27 08:32] LABS: Basophils % (A) 0 %; CHCM 31.9; Eosinophils # (A) 0.1 k/uL (0-0.7); Eosinophils % (A) 1 %; HCT 31.3 % (34.0-46.0); HDW 2.46; HGB 10.2 gm/dL (11.4-16.0); Luc # (Auto) 0.26; Luc % (Auto) 3; Lymphocytes # (A) 0.8 k/uL (1.0-4.8); Lymphocytes % (A) 9 %; MCH 27.7 pg (25.0-35.0); MCHC 32.6 g/dL (31.0-37.0); Mean Platelet Volume 7.9; Monocytes # (A) 0.6 k/uL (0-1.0); Monocytes % (A) 6 %; Neutrophils # (A) 7.4 k/uL (1.3-7.7); Neutrophils % (A) 82 %; RBC 3.68 m/uL (3.80-5.40); RDW 13.1 % (11.5-15.5); WBC 9.1 k/uL (3.8-10.6); WBC (Perox) 9.82
[2016-08-27 08:52] LABS: ALT 41 U/L (9-52); AST 79 U/L (14-36); Alkaline Phosphatase 71 U/L (38-126); Anion Gap 10 mmol/L; Blood Urea Nitrogen 11 mg/dL (7-17); Calcium 8.4 mg/dL (8.4-10.2); Carbon Dioxide 22 mmol/L (22-30); Chloride 100 mmol/L (98-107); Glucose 94 mg/dL (74-99); Non-African American GFR(MDRD) >60 (>60 ml/min/1.73 sqM); Sodium 132 mmol/L (137-145); Total Bilirubin 1.2 mg/dL (0.2-1.3); Total Protein 5.4 g/dL (6.3-8.2)
[2016-08-27] MEDS: PANTOPRAZOLE 40 MG/10 ML VIAL IVP SCH (08:55)
[2016-08-27] MEDS: MONTELUKAST 10 MG TAB PO SCH (08:55)
[2016-08-27] MEDS: CHOLECALCIFEROL 1,000 UNIT TAB PO SCH (08:55)
[2016-08-27] MEDS: EZETIMIBE 10 MG TAB PO SCH (08:55)
--- NOTE | 2016-08-27 09:02 | P.PN ---
Progress Note - Text Orthopedic Spine Patient is a pleasant 61-year-old female who is seen and examined at the bedside following posterior lateral decompression and fusion performed Tuesday. Patient states they are doing ok postsurgically. Currently does not complain of nausea, vomiting, fever, or chills. Patient states pain has been adequately controlled. She is currently receiving morphine sulfate oral along with morphine push as needed for control of her symptoms. Patient is eating and voiding freely without difficulty. She is continuing to wear an LSO brace while ambulating. She has had increased low back pain today as compared to yesterday. She developed ambulate to the restroom and hallways with some assistance. She does continue to have some left eye pain after her left eye was scratched postsurgically. She was seen and evaluated for her left eye. She 's currently receiving eyedrops and ointment for the left eye. She currently denies any lower extremity radiculopathy or weakness bilaterally. She continues to be followed by Dr. Vaughn in infectious disease and is currently receiving vancomycin per Dr. Vaughn' recommendations. Physical Exam Lumbar Fusion: Status post surgical day number 2 Patient is awake, alert, and oriented 3 Vital signs stable Good chest excursion with deep inspiration and expiration Abdomen soft nontender Dorsiflexion, plantarflexion, and extensor hallucis longus positive sustained bilaterally No signs or symptoms of DVT; no calf pain; pneumatic cuffs intact bilateral lower extremities Dressing is clean, dry, and intact; no erythema, purulence, or signs of infection; dressing change during physical examination Skin of the lumbar spine is does not show any obvious sign of infection Hemovac drain well secure; Hemovac drain removed during physical examination Neurovascularly intact bilaterally lower extremities Assessment: Posterior lateral decompression and fusion L4-5 Back pain Left eye pain Plan: 1. Ambulate as tolerated; work with Physical Therapy to increase mobilization 2. Continue pain control with IV and oral medications 3. Dressing changed to Telfa and Tegaderm; Hemovac drain discontinued 4. Medical management can continue to manage patient for patient's other medical issues 5. We will continue to follow the patient closely; if she continues to improve , we will plan for discharge home tomorrow, 08/28/2016 6. Patient can follow-up with Robert Lin PA-C or Dr. Chris Palacio at [facility] in 2-3 weeks following discharge
[2016-08-27] MEDS: SODIUM CHLORIDE 0.9% 1,000 ML IV SCH ×4 (09:26→21:47)
[2016-08-27] MEDS: MULTIVITAMINS, THERA 1 EACH TAB PO SCH (11:51)
--- NOTE | 2016-08-27 12:43 | P.PN ---
Subjective Patient status post back surgery. Pain is better controlled. Patient has been hypotensive did receive a fluid bolus this morning. She had a blood pressure as low as 71/35. Repeat blood pressure was 93/55. Therefore patient did receive fluid bolus. Denies any chest pain or shortness of breath. Denies any nausea or vomiting. Passing gas no bowel movement yet. Denies any difficulty urinating. She is reporting some numbness in the fingers of her right hand. Nurse notified she'll be contacting the spinal surgeon. Objective - Vital Signs Vital signs: Vital Signs Temp 98.9 F 08/27/16 07:44 Pulse 81 08/27/16 08:00 Resp 16 08/27/16 08:00 BP 99/58 08/27/16 10:15 Pulse Ox 97 08/27/16 07:44 Intake & Output 08/26/16 08/27/16 08/27/16 18:59 06:59 18:59 Intake Total 360 600 Output Total 1430 120 10 Balance -1070 480 -10 Weight 73.482 kg Intake: IV 600 Sodium Chloride 0.9% 1, 600 000 ml @ 75 mls/hr IV . [id number] [facility] Rx#:[id number] Oral 360 Output: Drainage 30 120 10 Back 30 120 10 Urine 1400 Other: Voiding Method Indwelling Catheter Toilet Toilet # Voids 3 1 - Exam Head normocephalic Neck supple Lungs clear to auscultation bilaterally no wheezing or crackles Heart regular rate and rhythm S1-S2, no rub or gallop Abdomen is soft nontender nondistended positive bowel sounds no hepatosplenomegaly Extremities no edema lower extremities. Right hand sensation loss in her fingers Neuro alert and orientated to 3 - Labs CBC & Chem 7: 08/27/16 08:10 08/27/16 08:10 Labs: Abnormal Lab Results - Last 24 Hours (Table) 08/27/16 08/27/16 Range/Units 08:10 08:10 RBC 3.68 L (3.80-5.40) m/uL Hgb 10.2 L (11.4-16.0) gm/dL Hct 31.3 L (34.0-46.0) % Plt Count 131 L (150-450) k/uL Lymphocytes # 0.8 L (1.0-4.8) k/uL Sodium 132 L (137-145) mmol/L AST 79 H (14-36) U/L Total Protein 5.4 L (6.3-8.2) g/dL Albumin 2.9 L (3.5-5.0) g/dL Assessment and Plan Plan: 1. Postop day #2 status post revision decompression and fusion of L4 and L5 for pseudoarthrosis at L4-L5. Continue with pain control per spinal surgery. Continue PT OT. Dr. Palacio has ordered oral morphine for pain control. With IV morphine as needed 2. Essential hypertension: Patient has been hypotensive. She'll receive a small fluid bolus at 250 L. Repeat blood pressure. Patient's lisinopril and hydrochlorothiazide remain on hold 3. Previous spinal infection after surgery had completed antibiotics and had removal of hardware. Infectious disease is following and patient is currently on IV vancomycin. No active infection with reported per OR report 4. Hypothyroidism resume her Synthroid 5. History of COPD: Stable continue Symbicort and Singulair 6. Hyperlipidemia continue that he 7. Nausea may be related to her pain medications. Seems to be improving. To Zofran as needed. 8. Corneal abrasion. 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 Continue the Cipro ophthalmic drops
[2016-08-27] MEDS: MORPHINE SULFATE 2 MG/ML SYRINGE IVP PRN ×2 (13:16→17:22)
[2016-08-27] MEDS ORDERED: MORPHINE SULFATE 4 MG/ML SYRINGE IVP PRN (17:53)
--- NOTE | 2016-08-27 17:55 | P.PN ---
Subjective Principal diagnosis: History of infection to her back Very pleasant 61-year-old woman who is known to me from her hospitalizations of last year and her office care after. When she was first evaluated she's having difficulty with severe ongoing back pain with radicular symptoms. She had severe L4-L5 disease. Then after symptomatic and conservative therapy she remained with significant discomfort and consequently in May 2015 underwent a L4-L5 decompression and fusion. After the surgery she had several areas that opened and gave her difficulty there were raised and erythematous and uncomfortable because of this she was taken to the operating room and her hardware was removed with concerns to infection as well as ALLERGY. There is concerned to ALLERGY to some components of the implant. The patient eventually was treated for the potential for an infection and had extensive wound care. After the extensive wound care she eventually healed the very atypical skin eruption that occurred. It was very uncomfortable with significant burning component. She is in well over time. Is now been admitted for revision L4-L5 fusion is of ongoing pain and compression from the disease. Concerns to recurrence of his skin condition. The patient was seen preoperatively and was given mupirocin as well as Hibiclens. Received antibiotic therapy with vancomycin for prophylaxis. She is now postoperative and doing remarkably well. 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 Miserable today. The hydromorphone drip cause nausea and emesis and she will not take more this. Was converted to oral MS Contin. Not having excellent pain control. Was having some relatively low blood pressures earlier better now after fluid challenge. Objective - Vital Signs Vital signs: Vital Signs Temp 98.6 F 08/27/16 15:34 Pulse 84 08/27/16 15:34 Resp 16 08/27/16 15:34 BP 88/56 08/27/16 17:25 Pulse Ox 94 L 08/27/16 15:34 Intake & Output 08/26/16 08/27/16 08/27/16 18:59 06:59 18:59 Intake Total 360 600 360 Output Total 1430 120 10 Balance -1070 480 350 Weight 73.482 kg Intake: IV 600 Sodium Chloride 0.9% 1, 600 000 ml @ 75 mls/hr IV . [id number] [facility] Rx#:[id number] Oral 360 360 Output: Drainage 30 120 10 Back 30 120 10 Urine 1400 Other: Voiding Method Indwelling Catheter Toilet Toilet # Voids 3 4 - Exam 61-year-old woman who is somewhat uncomfortable. However she does not appear toxic afebrile HEENT: Anicteric conjunctiva are pink and moist nasal mucosa grossly intact without significant lesions, there is no thrush. Neck: The neck is supple without significant lymphadenopathy or thyromegaly. Lungs: Symmetrical air entry. Few expiratory wheezes are scattered. No bronchial sounds. No dullness or egophony. Heart: Regular rate and rhythm with an audible S1-S2, soft S4. There is no significant murmur click or rub, PMI was nondisplaced. Abdomen: Positive bowel sounds soft and nontender without palpable masses or organomegaly. There was no guarding or rebound. Extremities: The upper extremities have excellent pulses they are symmetric, no significant petechiae or telangiectasia. No splinter hemorrhages were noted. The lower extremities are free from significant edema. The peripheral pulses were 2+ and symmetric. Neuro: Awake alert oriented to person place and time. There are no acute new gross focal sensory motor deficits. The back is evidence of the surgical dressing in place. The drainage tube is still in place with a sanguinous drainage being noted. - Labs CBC & Chem 7: 08/27/16 08:10 08/27/16 08:10 Labs: Abnormal Lab Results - Last 24 Hours (Table) 08/27/16 08/27/16 Range/Units 08:10 08:10 RBC 3.68 L (3.80-5.40) m/uL Hgb 10.2 L (11.4-16.0) gm/dL Hct 31.3 L (34.0-46.0) % Plt Count 131 L (150-450) k/uL Lymphocytes # 0.8 L (1.0-4.8) k/uL Sodium 132 L (137-145) mmol/L AST 79 H (14-36) U/L Total Protein 5.4 L (6.3-8.2) g/dL Albumin 2.9 L (3.5-5.0) g/dL Laboratory Results WBC 9.1 k/uL (3.8-10.6) 08/27/16 08:10 RBC 3.68 m/uL (3.80-5.40) L 08/27/16 08:10 Hgb 10.2 gm/dL (11.4-16.0) L 08/27/16 08:10 Hct 31.3 % (34.0-46.0) L 08/27/16 08:10 MCV 85.0 fL (80.0-100.0) 08/27/16 08:10 MCH 27.7 pg (25.0-35.0) 08/27/16 08:10 MCHC 32.6 g/dL (31.0-37.0) 08/27/16 08:10 RDW 13.1 % (11.5-15.5) 08/27/16 08:10 Plt Count 131 k/uL (150-450) L 08/27/16 08:10 Neutrophils % 82 % 08/27/16 08:10 Lymphocytes % 9 % 08/27/16 08:10 Monocytes % 6 % 08/27/16 08:10 Eosinophils % 1 % 08/27/16 08:10 Basophils % 0 % 08/27/16 08:10 Neutrophils # 7.4 k/uL (1.3-7.7) 08/27/16 08:10 Lymphocytes # 0.8 k/uL (1.0-4.8) L 08/27/16 08:10 Monocytes # 0.6 k/uL (0-1.0) 08/27/16 08:10 Eosinophils # 0.1 k/uL (0-0.7) 08/27/16 08:10 Basophils # 0.0 k/uL (0-0.2) 08/27/16 08:10 Sodium 132 mmol/L (137-145) L 08/27/16 08:10 Potassium 4.0 mmol/L (3.5-5.1) 08/27/16 08:10 Chloride 100 mmol/L (98-107) 08/27/16 08:10 Carbon Dioxide 22 mmol/L (22-30) 08/27/16 08:10 Anion Gap 10 mmol/L 08/27/16 08:10 BUN 11 mg/dL (7-17) 08/27/16 08:10 Creatinine 0.68 mg/dL (0.52-1.04) 08/27/16 08:10 Est GFR (MDRD) Af Amer >60 (>60 ml/min/1.73 sqM) 08/27/16 08:10 Est GFR (MDRD) Non-Af >60 (>60 ml/min/1.73 sqM) 08/27/16 08:10 Glucose 94 mg/dL (74-99) 08/27/16 08:10 Calcium 8.4 mg/dL (8.4-10.2) 08/27/16 08:10 Total Bilirubin 1.2 mg/dL (0.2-1.3) 08/27/16 08:10 AST 79 U/L (14-36) H 08/27/16 08:10 ALT 41 U/L (9-52) 08/27/16 08:10 Alkaline Phosphatase 71 U/L (38-126) 08/27/16 08:10 Total Protein 5.4 g/dL (6.3-8.2) L 08/27/16 08:10 Albumin 2.9 g/dL (3.5-5.0) L 08/27/16 08:10 Blood Type O Positive 08/17/16 10:24 Blood Type Recheck No 08/17/16 10:24 Antibody Screen NEGATIVE 08/17/16 10:24 Spec Expiration Date 08/27/16232308/17/16 10:24 Assessment and Plan (1) Spinal stenosis at L4-L5 level Narrative/Plan: 61-year-old woman presents to Hospital for surgical correction of her ongoing L4 -L5 spinal stenosis. She had prior laminectomy and hardware. Concern is to become infected and was removed. His worsening symptoms and his remitted to further stabilization to improve her severe pain syndrome. Postoperatively she is doing well. She did have a significant skin eruption after her last surgery. We'll monitor closely. Received antibiotic prophylaxis with vancomycin. And tolerated that well. She will need extensive counseling after discharge about her activity and limitations to prevent rapid reinjury. With her ongoing difficulty with pain and oral morphine, some when necessary IV morphine will be offered overnight with close monitoring of her blood pressure to try to break her cycle of pain to have her ready for discharge tomorrow. Will not need any antibiotic therapy. Status: Acute
[2016-08-27] MEDS: AMITRIPTYLINE HCL 50 MG TAB PO SCH (20:26)
[2016-08-27] MEDS ORDERED: VANCOMYCIN TROUGH DUE 1 EACH MISC MISCELLANE ONE (21:00)
[2016-08-27] MEDS ORDERED: IBUPROFEN 200 MG TAB PO PRN (21:19)
[2016-08-27] MEDS ORDERED: SODIUM CHLORIDE 0.9% 500 ML IV ONE (21:45)
[2016-08-27] MEDS: VANCOMYCIN 1,250 MG in SODIUM CHLORIDE 0.9% 250 ML IVPB SCH (21:47)
[2016-08-27] MEDS: IBUPROFEN 800 MG TAB PO PRN (22:21)
[2016-08-27] MEDS: CEFTAROLINE FOSAMIL 600 MG in SODIUM CHLORIDE 0.9% 250 ML IVPB SCH (23:29)
[2016-08-28 00:57] LABS: Glucose,Whole Blood 118 mg/dL (75-99)
[2016-08-28] MEDS: CIPROFLOXACIN 0.3% OPHTH SOLN 2.5 ML BTL LEFT EYE SCH ×6 (03:26→23:36)
[2016-08-28] MEDS: NEOMY-BACIT-POLYMX-HC OPHTH OINT 3.5 GM TUBE LEFT EYE SCH ×8 (03:27→23:36)
[2016-08-28] MEDS: SODIUM CHLORIDE 0.9% 1,000 ML IV SCH ×6 (04:05→15:10)
[2016-08-28] MEDS: LEVOTHYROXINE 100 MCG TAB PO SCH (06:11)
[2016-08-28] MEDS: CEFTAROLINE FOSAMIL 600 MG in SODIUM CHLORIDE 0.9% 250 ML IVPB SCH ×2 (07:30→20:56)
[2016-08-28] MEDS: MONTELUKAST 10 MG TAB PO SCH (07:31)
[2016-08-28] MEDS: PANTOPRAZOLE 40 MG TABLET PO SCH (07:31)
[2016-08-28] MEDS: CHOLECALCIFEROL 1,000 UNIT TAB PO SCH (07:31)
[2016-08-28] MEDS: EZETIMIBE 10 MG TAB PO SCH (07:31)
[2016-08-28 07:41] LABS: Aty Lym Flag Slight; CHCM 32.3; HCT 27.7 % (34.0-46.0); HDW 2.56; MCH 27.1 pg (25.0-35.0); MCHC 32.3 g/dL (31.0-37.0); Mean Platelet Volume 7.8; RDW 13.3 % (11.5-15.5); WBC 5.7 k/uL (3.8-10.6); WBC (Perox) 5.58
[2016-08-28] MEDS: IBUPROFEN 800 MG TAB PO PRN ×3 (07:42→23:40)
[2016-08-28] MEDS: DIAZEPAM 5 MG TAB PO PRN ×3 (07:42→23:40)
[2016-08-28 07:43] LABS: ALT 94 U/L (9-52); AST 144 U/L (14-36); Alkaline Phosphatase 127 U/L (38-126); Anion Gap 4 mmol/L; Blood Urea Nitrogen 10 mg/dL (7-17); Carbon Dioxide 27 mmol/L (22-30); Chloride 106 mmol/L (98-107); Glucose 101 mg/dL (74-99); Non-African American GFR(MDRD) >60 (>60 ml/min/1.73 sqM); Sodium 137 mmol/L (137-145); Total Protein 4.6 g/dL (6.3-8.2)
[2016-08-28] MEDS: SYMBICORT 160-4.5 MCG INHALER INHALATION SCH ×2 (07:48→19:41)
[2016-08-28 08:26] LABS: Add Differential Manual Differential
[2016-08-28 08:28] LABS: Manual Review Performed; Nucleated Red Blood Cells 0 /100 WBC (0-0); Total Cells Counted 100
--- NOTE | 2016-08-28 11:40 | P.PN ---
Progress Note - Text Postoperative day #3 Patient is seen and examined today at bedside. The patient has some pain around the surgical site as expected. She has many ALLERGIES and has been difficult to control her pain due to her ALLERGY medications. When she took the oral morphine her blood pressure did drop a bit but has remained stable. She is overall controlling her pain is relatively adequately. She did have a temperature do 101 last night she has remained afebrile today. She feels she is more mobile today than she was yesterday. Abdomen is soft nontender. Chest has good excursion deep and space expiration The incision site is clean dry and intact. No erythema there is no purulence. there is no drainage at all and no erythema. There is no eruptions at the skin. Extremities have not had neurologic change from prior to surgery. she has sustained dorsal flexion plantarflexion and extensor hallucis longus Calves and thighs were soft nontender without evidence of DVT. Assessment/Plan Postoperative day #3 status post revision decompression and fusion L4 5 Patient is progressing as expected from the surgery. she had a temperature last night and would like her to be afebrile through today before sending her home. She's been followed with infectious disease and does not seem to have active infection. Dr. Vaughn does not feel that she will need antibiotic therapy after discharge. She will need close monitoring which we can do on aou patient basis after discharge. She'll likely be able to be discharged home tomorrow We will continue to increase the patient's mobilization with therapy. We will continue pain control with oral or IV medications. We'll continue to follow patient closely.
--- NOTE | 2016-08-28 12:09 | P.PN ---
Subjective 61-year-old female resting in bed. Did note the patient did run a temp of 101 at 2200 last night. Currently is being followed by infectious disease. Patient reportedly had been up ambulating in the [place] this morning. Patient is postop done on August 25 revision decompression laminectomy L4 and 5 revision fusion L4 and 5 [facility] noted no further episodes of systolic hypotension. Did note yesterday the systolic blood pressure was in the 70s necessitating the need to give a fluid bolus currently the blood pressure is 114/56 IV fluid currently at 100 hour Objective - Vital Signs Vital signs: Vital Signs Temp 97.9 F 08/28/16 07:00 Pulse 77 08/28/16 07:00 Resp 18 08/28/16 08:00 BP 114/56 08/28/16 07:00 Pulse Ox 100 08/28/16 07:00 Intake & Output 08/27/16 08/28/16 08/28/16 18:59 06:59 18:59 Intake Total 360 800 200 Output Total 10 400 10 Balance 350 400 190 Weight 73.482 kg 73.482 kg Intake: IV 800 Sodium Chloride 0.9% 1, 800 000 ml @ 100 mls/hr IV . Q10H [facility] Rx#:[id number] Oral 360 200 Output: Drainage 10 10 Back 10 10 Urine 400 Other: Voiding Method Toilet Toilet Toilet # Voids 2 1 - Exam GENERAL APPEARANCE: 61-year-old female resting in bed is alert, oriented, in no acute distress. VITAL SIGNS: Reviewed HEENT: Head is normocephalic and atraumatic. Pupils are equal and reactive. The nares are patent. Oropharynx is clear without lesions. NECK: Supple without lymphadenopathy. Traches midline. HEART: S1, S2. Regular rate and rhythm. Denying chest pain LUNGS: No crackles or wheezes are heard. Adequate air movement ABDOMEN: Soft, nontender, nondistended with good bowel sounds. No peritoneal signs. No palpable organomegaly or masses. EXTREMITIES: Normal skin color and turgor. No cyanosis, rash, ulceration, clubbing or edema. Radial pedal pulses are 2/4 bilaterally. NEUROLOGICAL: No focal deficits. Strength and sensation are grossly intact. - Labs CBC & Chem 7: 08/28/16 07:09 08/28/16 07:09 Labs: Abnormal Lab Results - Last 24 Hours (Table) 08/28/16 08/28/16 08/28/16 Range/Units 00:56 07:09 07:09 RBC 3.30 L (3.80-5.40) m/uL Hgb 9.0 L (11.4-16.0) gm/dL Hct 27.7 L (34.0-46.0) % Plt Count 115 L (150-450) k/uL Glucose 101 H (74-99) mg/dL POC Glucose (mg/dL) 118 H (75-99) mg/dL Calcium 8.0 L (8.4-10.2) mg/dL AST 144 H (14-36) U/L ALT 94 H (9-52) U/L Alkaline Phosphatase 127 H (38-126) U/L Total Protein 4.6 L (6.3-8.2) g/dL Albumin 2.3 L (3.5-5.0) g/dL Assessment and Plan Plan: Impression Postop day 3 revision decompression and fusion of L4 and L5 for pseudoarthrosis L4 and 5 Postop febrile hypothyroid on supplements Postop hypotensive fluid bolus normalizing history of COPD stable Hyperlipidemia Previous spinal infection after surgery completed antibiotics and removal of hardware Corneal abrasion currently on Cipro eyedrops Postop nausea vomiting likely due to pain medicines resolving Plan continue recommendations by Dr. Vaughn infectious disease defer to Resume home meds as appropriate DVT and GI prophylaxis Pain control Continue IV fluid for rehydration Further recommendations pending will follow Repeat labs in the morning The above dictated assessment and findings were discussed with dr wolfe . Impression and the plan of care have been dictated as directed. Elke Singh nurse practitioner acting as a scribe for dr wolfe
[2016-08-28] MEDS: MULTIVITAMINS, THERA 1 EACH TAB PO SCH (12:15)
[2016-08-28] MEDS: AMITRIPTYLINE HCL 50 MG TAB PO SCH (20:57)
--- NOTE | 2016-08-28 21:09 | P.PN ---
Subjective Principal diagnosis: History of infection to her back Very pleasant 61-year-old woman who is known to me from her hospitalizations of last year and her office care after. When she was first evaluated she's having difficulty with severe ongoing back pain with radicular symptoms. She had severe L4-L5 disease. Then after symptomatic and conservative therapy she remained with significant discomfort and consequently in May 2015 underwent a L4-L5 decompression and fusion. After the surgery she had several areas that opened and gave her difficulty there were raised and erythematous and uncomfortable because of this she was taken to the operating room and her hardware was removed with concerns to infection as well as ALLERGY. There is concerned to ALLERGY to some components of the implant. The patient eventually was treated for the potential for an infection and had extensive wound care. After the extensive wound care she eventually healed the very atypical skin eruption that occurred. It was very uncomfortable with significant burning component. She is in well over time. Is now been admitted for revision L4-L5 fusion is of ongoing pain and compression from the disease. Concerns to recurrence of his skin condition. The patient was seen preoperatively and was given mupirocin as well as Hibiclens. Received antibiotic therapy with vancomycin for prophylaxis. She is now postoperative and doing Poorly today. If fever 101.5 overnight that is partially improved. She's having some difficulty with ambulation due to pain. She did get some rest last night. With dizziness and transient hypotension that responded to a fluid challenge. Difficult that she's not eating and drinking well due to her pain in her postoperative status. She relates that she 's had several procedures and this is the worst postoperative status she's had to date.she does have very difficulties with pain medications and their toxicities. Objective - Vital Signs Vital signs: Vital Signs Temp 98.0 F 08/28/16 15:00 Pulse 73 08/28/16 15:00 Resp 18 08/28/16 15:00 BP 92/53 08/28/16 15:00 Pulse Ox 91 L 08/28/16 15:00 Intake & Output 08/28/16 08/28/16 08/29/16 06:59 18:59 07:59 Intake Total 800 200 Output Total 400 10 Balance 400 190 Weight 73.482 kg 73.482 kg Intake: IV 800 Sodium Chloride 0.9% 1, 800 000 ml @ 100 mls/hr IV . Q10H [facility] Rx#:[id number] Oral 200 Output: Drainage 10 Back 10 Urine 400 Other: Voiding Method Toilet Toilet # Voids 1 - Exam 61-year-old woman who is somewhat uncomfortable. However she does not appear toxic and is afebrile today HEENT: Anicteric conjunctiva are pink and moist nasal mucosa grossly intact without significant lesions, there is no thrush. Neck: The neck is supple without significant lymphadenopathy or thyromegaly. Lungs: Symmetrical air entry. Few expiratory wheezes are scattered. No bronchial sounds. No dullness or egophony. Heart: Regular rate and rhythm with an audible S1-S2, soft S4. There is no significant murmur click or rub, PMI was nondisplaced. Abdomen: Positive bowel sounds soft and nontender without palpable masses or organomegaly. There was no guarding or rebound. Extremities: The upper extremities have excellent pulses they are symmetric, no significant petechiae or telangiectasia. No splinter hemorrhages were noted. The lower extremities are free from significant edema. The peripheral pulses were 2+ and symmetric. Neuro: Awake alert oriented to person place and time. There are no acute new gross focal sensory motor deficits. The back is evidence of the surgical dressing in place. - Labs CBC & Chem 7: 08/28/16 07:09 08/28/16 07:09 Labs: Abnormal Lab Results - Last 24 Hours (Table) 08/28/16 08/28/16 08/28/16 Range/Units 00:56 07:09 07:09 RBC 3.30 L (3.80-5.40) m/uL Hgb 9.0 L (11.4-16.0) gm/dL Hct 27.7 L (34.0-46.0) % Plt Count 115 L (150-450) k/uL Glucose 101 H (74-99) mg/dL POC Glucose (mg/dL) 118 H (75-99) mg/dL Calcium 8.0 L (8.4-10.2) mg/dL AST 144 H (14-36) U/L ALT 94 H (9-52) U/L Alkaline Phosphatase 127 H (38-126) U/L Total Protein 4.6 L (6.3-8.2) g/dL Albumin 2.3 L (3.5-5.0) g/dL Laboratory Results WBC 5.7 k/uL (3.8-10.6) 08/28/16 07:09 RBC 3.30 m/uL (3.80-5.40) L 08/28/16 07:09 Hgb 9.0 gm/dL (11.4-16.0) L 08/28/16 07:09 Hct 27.7 % (34.0-46.0) L 08/28/16 07:09 MCV 84.0 fL (80.0-100.0) 08/28/16 07:09 MCH 27.1 pg (25.0-35.0) 08/28/16 07:09 MCHC 32.3 g/dL (31.0-37.0) 08/28/16 07:09 RDW 13.3 % (11.5-15.5) 08/28/16 07:09 Plt Count 115 k/uL (150-450) L 08/28/16 07:09 Neutrophils % 82 % 08/27/16 08:10 Neutrophils % (Manual) 72.0 % 08/28/16 07:09 Lymphocytes % 9 % 08/27/16 08:10 Lymphocytes % (Manual) 18.0 % 08/28/16 07:09 Monocytes % 6 % 08/27/16 08:10 Monocytes % (Manual) 8.0 % 08/28/16 07:09 Eosinophils % 1 % 08/27/16 08:10 Eosinophils % (Manual) 2.0 % 08/28/16 07:09 Basophils % 0 % 08/27/16 08:10 Neutrophils # 7.4 k/uL (1.3-7.7) 08/27/16 08:10 Neutrophils # (Manual) 4.1 k/uL (1.3-7.7) 08/28/16 07:09 Lymphocytes # 0.8 k/uL (1.0-4.8) L 08/27/16 08:10 Lymphocytes # (Manual) 1.0 k/uL (1.0-4.8) 08/28/16 07:09 Monocytes # 0.6 k/uL (0-1.0) 08/27/16 08:10 Monocytes # (Manual) 0.5 k/uL (0-1.0) 08/28/16 07:09 Eosinophils # 0.1 k/uL (0-0.7) 08/27/16 08:10 Eosinophils # (Manual) 0.1 k/uL (0-0.7) 08/28/16 07:09 Basophils # 0.0 k/uL (0-0.2) 08/27/16 08:10 Nucleated RBCs 0 /100 WBC (0-0) 08/28/16 07:09 Manual Slide Review Performed 08/28/16 07:09 Sodium 137 mmol/L (137-145) 08/28/16 07:09 Potassium 4.0 mmol/L (3.5-5.1) 08/28/16 07:09 Chloride 106 mmol/L (98-107) 08/28/16 07:09 Carbon Dioxide 27 mmol/L (22-30) 08/28/16 07:09 Anion Gap 4 mmol/L 08/28/16 07:09 BUN 10 mg/dL (7-17) 08/28/16 07:09 Creatinine 0.79 mg/dL (0.52-1.04) 08/28/16 07:09 Est GFR (MDRD) Af Amer >60 (>60 ml/min/1.73 sqM) 08/28/16 07:09 Est GFR (MDRD) Non-Af >60 (>60 ml/min/1.73 sqM) 08/28/16 07:09 Glucose 101 mg/dL (74-99) H 08/28/16 07:09 POC Glucose (mg/dL) 118 mg/dL (75-99) H 08/28/16 00:56 POC Glu Concession Worker ID Toshia Smiley 08/28/16 00:56 Plasma Lactic Acid Dejon 1.9 mmol/L (0.7-2.0) 08/27/16 20:42 Calcium 8.0 mg/dL (8.4-10.2) L 08/28/16 07:09 Total Bilirubin 1.0 mg/dL (0.2-1.3) 08/28/16 07:09 AST 144 U/L (14-36) H 08/28/16 07:09 ALT 94 U/L (9-52) H 08/28/16 07:09 Alkaline Phosphatase 127 U/L (38-126) H 08/28/16 07:09 Total Protein 4.6 g/dL (6.3-8.2) L 08/28/16 07:09 Albumin 2.3 g/dL (3.5-5.0) L 08/28/16 07:09 Vancomycin Trough <5.0 ug/mL 08/27/16 20:42 Blood Type O Positive 08/17/16 10:24 Blood Type Recheck No 08/17/16 10:24 Antibody Screen NEGATIVE 08/17/16 10:24 Spec Expiration Date 08/27/16232308/17/16 10:24 Assessment and Plan (1) Spinal stenosis at L4-L5 level Narrative/Plan: 61-year-old woman presents to Hospital for surgical correction of her ongoing L4 -L5 spinal stenosis. She had prior laminectomy and hardware. Concern is to become infected and was removed. His worsening symptoms and his remitted to further stabilization to improve her severe pain syndrome. Postoperatively she is doing well. She did have a significant skin eruption after her last surgery. We'll monitor closely. Received antibiotic prophylaxis with vancomycin. And tolerated that well. She will need extensive counseling after discharge about her activity and limitations to prevent rapid reinjury. With her ongoing difficulty with pain and oral morphine, some when necessary IV morphine will be offered overnight with close monitoring of her blood pressure to try to break her cycle of pain to have her ready for discharge tomorrow. She developed fever and antibiotics were begun while cultures are in process. She fortunately much improved today. The fever could've been from atelectasis in her medications. If she has no further fever Avelox will be discontinued in the morning. Status: Acute
[2016-08-29] MEDS: NEOMY-BACIT-POLYMX-HC OPHTH OINT 3.5 GM TUBE LEFT EYE SCH ×4 (03:26→12:18)
[2016-08-29] MEDS: CIPROFLOXACIN 0.3% OPHTH SOLN 2.5 ML BTL LEFT EYE SCH ×3 (03:27→12:19)
[2016-08-29] MEDS: LEVOTHYROXINE 100 MCG TAB PO SCH (06:20)
[2016-08-29 07:40] LABS: ALT 170 U/L (9-52); AST 191 U/L (14-36); Alkaline Phosphatase 217 U/L (38-126); Anion Gap 7 mmol/L; Blood Urea Nitrogen 11 mg/dL (7-17); Calcium 8.4 mg/dL (8.4-10.2); Carbon Dioxide 25 mmol/L (22-30); Chloride 111 mmol/L (98-107); Glucose 81 mg/dL (74-99); Non-African American GFR(MDRD) >60 (>60 ml/min/1.73 sqM); Potassium 4.3 mmol/L (3.5-5.1); Sodium 143 mmol/L (137-145); Total Bilirubin 0.9 mg/dL (0.2-1.3); Total Protein 4.8 g/dL (6.3-8.2)
[2016-08-29] MEDS: CEFTAROLINE FOSAMIL 600 MG in SODIUM CHLORIDE 0.9% 250 ML IVPB SCH (07:45)
[2016-08-29] MEDS: CHOLECALCIFEROL 1,000 UNIT TAB PO SCH (07:46)
[2016-08-29] MEDS: EZETIMIBE 10 MG TAB PO SCH (07:47)
[2016-08-29] MEDS: PANTOPRAZOLE 40 MG TABLET PO SCH (07:47)
[2016-08-29] MEDS: MONTELUKAST 10 MG TAB PO SCH (07:47)
[2016-08-29 08:00] LABS: Basophils % (A) 0 %; CH 27.2; CHCM 32.2; Eosinophils # (A) 0.3 k/uL (0-0.7); Eosinophils % (A) 6 %; HCT 28.3 % (34.0-46.0); HDW 2.66; HGB 9.2 gm/dL (11.4-16.0); Luc % (Auto) 4; Lymphocytes # (A) 0.6 k/uL (1.0-4.8); Lymphocytes % (A) 13 %; MCH 27.5 pg (25.0-35.0); MCHC 32.4 g/dL (31.0-37.0); MCV 84.9 fL (80.0-100.0); Mean Platelet Volume 8.1; Monocytes # (A) 0.3 k/uL (0-1.0); Monocytes % (A) 6 %; Neutrophils # (A) 3.5 k/uL (1.3-7.7); Neutrophils % (A) 70 %; RBC 3.33 m/uL (3.80-5.40); RDW 13.4 % (11.5-15.5); WBC (Perox) 5.11
[2016-08-29 08:26] VITALS: BP 119/66; PULSE 73; RESP 18; TEMP 98.1
[2016-08-29] MEDS: SYMBICORT 160-4.5 MCG INHALER INHALATION SCH (08:41)
[2016-08-29] MEDS: SODIUM CHLORIDE 0.9% 1,000 ML IV SCH (08:42)
[2016-08-29] MEDS: IBUPROFEN 800 MG TAB PO PRN (12:17)
[2016-08-29] MEDS: DIAZEPAM 5 MG TAB PO PRN (12:17)
[2016-08-29] MEDS: MULTIVITAMINS, THERA 1 EACH TAB PO SCH (12:18)
--- NOTE | 2016-08-29 12:23 | P.PN ---
Subjective 61-year-old female being seen this morning on rounds resting in bed is stating "I need to go home". Patients being followed by infectious disease and orthopedic servicecurrent temp 98.1. The temp last evening was 101 Patient is postop done on August 25 revision decompression laminectomy L4 and 5 revision fusion L4 and 5 [facility] noted no further episodes of systolic hypotension. Objective - Vital Signs Vital signs: Vital Signs Temp 98.1 F 08/29/16 08:00 Pulse 73 08/29/16 08:00 Resp 18 08/29/16 08:00 BP 119/66 08/29/16 08:00 Pulse Ox 97 08/29/16 08:00 Intake & Output 08/28/16 08/29/16 08/29/16 17:59 06:59 18:59 Intake Total Output Total Balance Weight 73.482 kg Intake: Oral Output: Drainage Back Urine Other: Voiding Method Toilet # Voids - Exam physical exam 61-year-old female resting in bed anxious to be discharged lungs essentially clear no shortness of breath Heart S1-S2 audible regular Abdomen soft nontender dressing to the back dry no nausea no vomiting no frequent stooling Extremities no edema - Labs CBC & Chem 7: 08/29/16 06:57 08/29/16 06:57 Labs: Abnormal Lab Results - Last 24 Hours (Table) 08/29/16 08/29/16 Range/Units 06:57 06:57 RBC 3.33 L (3.80-5.40) m/uL Hgb 9.2 L (11.4-16.0) gm/dL Hct 28.3 L (34.0-46.0) % Plt Count 145 L (150-450) k/uL Lymphocytes # 0.6 L (1.0-4.8) k/uL Chloride 111 H (98-107) mmol/L AST 191 H (14-36) U/L ALT 170 H (9-52) U/L Alkaline Phosphatase 217 H (38-126) U/L Total Protein 4.8 L (6.3-8.2) g/dL Albumin 2.4 L (3.5-5.0) g/dL Microbiology - Last 24 Hours (Table) 08/27/16 22:25 Blood Culture - Preliminary Blood No Growth after 24 hours 08/27/16 22:09 Blood Culture - Preliminary Blood No Growth after 24 hours Assessment and Plan Plan: Impression Postop day 3 revision decompression and fusion of L4 and L5 for pseudoarthrosis L4 and 5 Postop febrile hypothyroid on supplements Postop hypotensive fluid bolus normalizing history of COPD stable Hyperlipidemia Previous spinal infection after surgery completed antibiotics and removal of hardware Corneal abrasion currently on Cipro eyedrops Postop nausea vomiting likely due to pain medicines resolving Plan continue recommendations by Dr. Vaughn infectious disease defer to Resume home meds as appropriate DVT and GI prophylaxis Pain control Continue IV fluid for rehydration Further recommendations pending will follow Repeat labs in the morning The above dictated assessment and findings were discussed with dr wolfe . Impression and the plan of care have been dictated as directed. Elke Singh nurse practitioner acting as a scribe for dr wolfe
--- NOTE | 2016-08-29 12:44 | P.DS ---
Providers Date of admission: 08/25/16 05:55 Attending physician: Shabbir Palacio Consults: 08/25/16 11:10 Consult Physician Routine Consulting Provider: Jerson Cline Consult Reason/Comments: Medical management Do you want consulting provider notified?: Already Contacted 08/25/16 11:15 Consult Physician Routine Consulting Provider: Jer Vaughn Consult Reason/Comments: Antibiotic medication recommendations Do you want consulting provider notified?: Yes 08/25/16 13:31 Consult Physician Urgent Consulting Provider: Norman Delaney Consult Reason/Comments: Possible left eye contusion Do you want consulting provider notified?: Yes Primary care physician: Stated None Hospital Course: The patient presented on the day of admission as per his operative note. She underwent revision decompression and fusion at L4 5 for her pseudoarthrosis L4 5. History of prior fusion and an infection at the area with removal of hardware and pseudoarthrosis at that level. She continued to have significant problems and ultimately after failing conservative treatment decided to proceed with surgical intervention for revision decompression and fusion as per her operative note. Physical Exam The incision site is clean dry and intact. There is no erythema no drainage. There is no purulence no evidence of infection. There is no skin breakdown. There is no blistering there is no skin eruption. At her back around the wound Abdomen soft and nontender. Chest has good excursion with deep inspiration and expiration. The patient has active and passive range of motion intact at the upper and lower extremities. There is no acute change in neurologic status. She has sustained dorsal flexion plantar flexion and extensor hallucis longus Hospital Course Postoperative day #4 status post decompression and fusion, revision at L4 5 for pseudoarthrosis and recurrent stenosis. The patient has been making adequate progress postoperatively. Initially she was quite mobile and she appears to be having waxing waning of her pain symptoms where she is doing well but then has some increased activity and then has subsequent rebounding. Today she has significant soreness but would really like to try to be at home to continue to manage her pain and be more cut feels she would be more comfortable in her bed on bed area she is tolerating her diet she is getting up out of bed on her own her wound is clear and she is voiding freely think it is okay for her to be discharged home to try to control her pain with Ultram which she has taken at home before despite her rotation of acetaminophen ALLERGY. They have completed the prophylactic antibiotics without any signs or symptoms of infection. The patient has been able to advance their diet, and is tolerating diet adequately. The pain was initially controlled with IV medications and is now controlled somewhat appropriately with oral medications. The patient has been able to increase their mobilization. The patient has progressed appropriately. I think they are in stable condition for discharge today. They will be sent home with appropriate prescriptions of Ultram which she has taken at home before without any liver problems. I answered their questions to the best of my ability in a language that they can understand and they are agreeable with the plan. They will follow up as directed in approximately 2 weeks or sooner if she is having problems. Patient Condition at Discharge: Fair Plan - Discharge Summary Discharge Medication List Cholecalciferol [Vitamin D3] 2,000 unit PO DAILY 05/19/15 [History] Levothyroxine Sodium [Synthroid] 100 mcg PO DAILY 05/19/15 [History] Lisinopril/Hydrochlorothiazide [Zestoretic 20-25 mg Tablet] 1 tab PO DAILY 09/19 [History] Amitriptyline HCl [Elavil] 150 mg PO HS 08/18/16 [History] Ezetimibe [Zetia] 10 mg PO DAILY 08/18/16 [History] Mometasone/Formoterol [Dulera 200 Mcg/5 Mcg Inhaler] 2 puff INHALATION RT-BID [History] Montelukast [Singulair] 10 mg PO DAILY 08/18/16 [History] Multivit-Min/FA/Lycopene/Lut [Centrum Silver Tablet] 1 tab PO DAILY 08/18/16 [ History] tiZANidine [Zanaflex] 4 mg PO Q4HR PRN 08/18/16 [History] Mupirocin 2% Oint [Bactroban 2% Oint] 1 applic NASAL BID 08/25/16 [History] Follow up Appointment(s)/Referral(s): Robert Lin, KARTHIKEYAN [PHYSICIAN CARTON INSPECTOR] - 2 Weeks (Patient may follow-up with Robert Lin PA-C or Dr. Chris Palacio at [facility] in 2-3 weeks following discharge. ) Activity/Diet/Wound Care/Special Instructions: 1. Patient may shower Tegaderm dressing intact. 2. Patient may remove Tegaderm dressing in 3 days and shower without a dressing at that time on Tuesday. 3. Patient should keep Steri-Strips intact and allow them to fall off naturally. 4. Patient should refrain from driving until at least after their first follow- up appointment in the office. 5. Patient should avoid excessive bending, twisting, and lifting; no lifting greater than 10 pounds 6. Do not soak in tub 7. Continue to wear LSO brace for comfort and support while doing activities and while ambulating [facility] Biso-[phone] Discharge Disposition: HOME SELF-CARE
== END 2016-08-29 14:18 | disposition home health service (06) | DRG 460 ==
LOC: 2ORMAIN 05:55 → 5MS5E 11:04
PROVIDERS: ADMIT Orthopaedic Surgery Orthopaedic Surgery of the Spine; ATTEND Orthopaedic Surgery Orthopaedic Surgery of the Spine
PROC: 0QB30ZZ Excision of Left Pelvic Bone, Open Approach (ICD-10-PCS; 2016-08-25)
PROC: 07DR3ZZ Extraction of Iliac Bone Marrow, Percutaneous Approach (ICD-10-PCS; 2016-08-25)
PROC: 0SG0071 Fusion of Lumbar Vertebral Joint with Autologous Tissue Substitute, Posterior Approach, Posterior Column, Open Approach (ICD-10-PCS; principal; 2016-08-25 07:30)
DX: M43.16 Spondylolisthesis, lumbar region (principal); S32.049A Unspecified fracture of fourth lumbar vertebra, initial encounter for closed fracture; J98.11 Atelectasis; S32.059A Unspecified fracture of fifth lumbar vertebra, initial encounter for closed fracture; I95.9 Hypotension, unspecified; I10 Essential (primary) hypertension; E03.9 Hypothyroidism, unspecified; M48.06 Spinal stenosis, lumbar region; M54.16 Radiculopathy, lumbar region; E78.5 Hyperlipidemia, unspecified; J44.9 Chronic obstructive pulmonary disease, unspecified; K21.9 Gastro-esophageal reflux disease without esophagitis; R48.0 Dyslexia and alexia; S05.02XA Injury of conjunctiva and corneal abrasion without foreign body, left eye, initial encounter; G43.909 Migraine, unspecified, not intractable, without status migrainosus; M19.90 Unspecified osteoarthritis, unspecified site; X58.XXXA Exposure to other specified factors, initial encounter; R11.0 Nausea; T50.995A Adverse effect of other drugs, medicaments and biological substances, initial encounter; Z79.899 Other long term (current) drug therapy; Z87.891 Personal history of nicotine dependence; Z85.828 Personal history of other malignant neoplasm of skin; Z98.1 Arthrodesis status; Z88.6 Allergy status to analgesic agent; Z88.1 Allergy status to other antibiotic agents; Z88.5 Allergy status to narcotic agent; Z88.0 Allergy status to penicillin; Z88.8 Allergy status to other drugs, medicaments and biological substances; Z82.49 Family history of ischemic heart disease and other diseases of the circulatory system; Y92.239 Unspecified place in hospital as the place of occurrence of the external cause
CPT/HCPCS: 72020; 72100; 80048; 80053; 80202; 83605; 84132; 85025; 86850; 86900; 86901; 87040

== ENCOUNTER 2017-10-07 11:44 | Inpatient (IN) | payer OTHER ==
[2017-10-07] MEDS ORDERED: IPRATROPIUM-ALBUTEROL 3 ML NEB INHALATION STA (12:29)
[2017-10-07 12:34] LABS: Basophils % (A) 0 %; Eosinophils # (A) 0.1 k/uL (0-0.7); Eosinophils % (A) 1 %; HCT 42.8 % (34.0-46.0); HGB 14.7 gm/dL (11.4-16.0); Lymphocytes # (A) 2.2 k/uL (1.0-4.8); Lymphocytes % (A) 15 %; MCH 26.6 pg (25.0-35.0); MCHC 34.3 g/dL (31.0-37.0); MCV 77.8 fL (80.0-100.0); Mean Platelet Volume 6.8; Monocytes # (A) 0.7 k/uL (0-1.0); Monocytes % (A) 5 %; Neutrophils # (A) 11.7 k/uL (1.3-7.7); Neutrophils % (A) 78 %; Platelet Count 285 k/uL (150-450); RBC 5.51 m/uL (3.80-5.40); WBC 15.1 k/uL (3.8-10.6)
[2017-10-07 12:47] LABS: ALT 40 U/L (9-52); AST 17 U/L (14-36); Albumin 4.4 g/dL (3.5-5.0); Alkaline Phosphatase 107 U/L (38-126); Anion Gap 11 mmol/L; Blood Urea Nitrogen 29 mg/dL (7-17); Carbon Dioxide 27 mmol/L (22-30); Chloride 99 mmol/L (98-107); Glucose 92 mg/dL (74-99); Magnesium 2.2 mg/dL (1.6-2.3); Potassium 4.6 mmol/L (3.5-5.1); Sodium 137 mmol/L (137-145); Total Protein 7.1 g/dL (6.3-8.2)
[2017-10-07 12:54] LABS: Creatine Kinase 25 U/L (30-135)
[2017-10-07 13:06] LABS: Prothrombin Time 9.6 sec (9.0-12.0)
[2017-10-07 13:07] LABS: Creatine Kinase MB 0.9 ng/mL (0.0-2.4); Troponin I <0.012 ng/mL (0.000-0.034)
[2017-10-07 13:13] LABS: Partial Thromboplastin Time 20.1 sec (22.0-30.0)
[2017-10-07] MEDS ORDERED: ALBUTEROL NEBULIZED 2.5 MG/3 ML INHALATION STA (13:18)
--- NOTE | 2017-10-07 13:43 | XR ---
EXAMINATION TYPE: XR chest 2V DATE OF EXAM: 10/07/2017 COMPARISON: Chest x-ray August 17, 2016. HISTORY: Cough and shortness of breath for 2 weeks. TECHNIQUE: Frontal and lateral views of the chest are obtained. FINDINGS: There is patchy horizontal opacity both lung bases felt to reflect atelectasis and/or infi ltrate. No large pleural effusion or pneumothorax is seen bilaterally. The cardiac silhouette size is more prominent and upper limits of normal currently with atherosclerotic aorta. The osseous struct ures are somewhat demineralized. Slight S-shaped scoliotic curvature is present. IMPRESSION: Chronic parenchymal changes with new patchy bibasilar atelectasis and/or infiltrate. Cons ider progress two view chest xray.
[2017-10-07] MEDS ORDERED: BENZONATATE 100 MG CAP PO STA (14:02)
[2017-10-07] MEDS ORDERED: methylPREDNISolone SOD SUCCI 125 MG/2 ML VIAL IV STA (14:03)
[2017-10-07] MEDS ORDERED: LORazepam 2 MG/ML INJ IV STA (14:11)
--- NOTE | 2017-10-07 14:18 | ED ---
SOB HPI - General Chief Complaint: Shortness of Breath Stated Complaint: Diff Breathing Time Seen by Provider: 10/07/17 12:10 Source: patient, RN notes reviewed Mode of arrival: ambulatory Limitations: no limitations - History of Present Illness Initial Comments: This a 62-year-old female presents emergency Department chief complaint of cough congestion shortness of breath. Patient states she's been sick for last 2 months. Patient states that she is receiving several steroid injections with primary care physician has been doing breathing treatments at home and states that not improving symptoms worsen. She has multiple ALLERGIES to medications states that she was given deliverable states that she felt she had a lump in her throat. Patient states that her chest feels tight. Patient complains of discomfort sore that her ribs hurt, her head hurts. Patient had no reported fevers denies any chills. Patient denies any abdominal pain. Patient's issues , so her that she feels like she cannot vomit. Patient is a former smoker no current tobacco use. - Related Data Home Medications Medication Instructions Recorded Confirmed Levothyroxine Sodium [Synthroid] 100 mcg PO DAILY 05/19/15 10/07/17 Lisinopril/Hydrochlorothiazide 1 tab PO DAILY 09/20/15 10/07/17 [Zestoretic 20-25] Ezetimibe [Zetia] 10 mg PO DAILY 08/18/16 10/07/17 Montelukast [Singulair] 10 mg PO DAILY 08/18/16 10/07/17 Albuterol Nebulized [Ventolin 2.5 mg INHALATION RT-Q6H PRN 10/07/17 10/07/17 Nebulized] Allergies Allergy/AdvReac Type Severity Reaction Status Date / Time acetaminophen Allergy Rash/Hives Verified 10/07/17 12:28 [From Darvocet-N] aspirin Allergy Rash/Hives Verified 10/07/17 12:28 [From Empirin W/Codeine] azithromycin Allergy Rash/Hives Verified 10/07/17 12:28 baclofen Allergy Rash/Hives Verified 10/07/17 12:28 butalbital [From Fioricet] Allergy Rash/Hives Verified 10/07/17 12:28 caffeine [From Fioricet] Allergy Rash/Hives Verified 10/07/17 12:28 codeine Allergy Rash/Hives Verified 10/07/17 12:28 codeine phosphate Allergy Rash/Hives Verified 10/07/17 12:28 [From Empirin W/Codeine] cyclobenzaprine HCl Allergy Rash/Hives Verified 10/07/17 12:28 [From Flexeril] etodolac [From Lodine] Allergy Rash/Hives Verified 10/07/17 12:28 ezetimibe [From Vytorin] Allergy Rash/Hives Verified 10/07/17 12:28 flurazepam HCl [From Dalmane] Allergy Rash/Hives Verified 10/07/17 12:28 hydrocodone [From [place]] Allergy Rash/Hives Verified 10/07/17 12:28 hydrocodone bitartrate Allergy Rash/Hives Verified 10/07/17 12:28 [From Vicodin] ketorolac tromethamine Allergy Rash/Hives Verified 10/07/17 12:28 [From Toradol] meperidine HCl [From Demerol] Allergy Rash/Hives Verified 10/07/17 12:28 orphenadrine citrate Allergy Rash/Hives Verified 10/07/17 12:28 [From Norflex] Penicillins Allergy Rash/Hives Verified 10/07/17 12:28 pentazocine lactate Allergy Rash/Hives Verified 10/07/17 12:28 [From Talwin] propoxyphene HCl Allergy Rash/Hives Verified 10/07/17 12:28 [From Darvon] propoxyphene napsylate Allergy Rash/Hives Verified 10/07/17 12:28 [From Darvocet-N] simvastatin [From Vytorin] Allergy Rash/Hives Verified 10/07/17 12:28 Review of Systems ROS Statement: Those systems with pertinent positive or pertinent negative responses have been documented in the HPI. ROS Other: All systems not noted in ROS Statement are negative. Past Medical History Past Medical History: COPD, GERD/Reflux, Hyperlipidemia, Hypertension, Pneumonia , Thyroid Disorder Additional Past Medical History / Comment(s): SPONDYLOLISTHESIS L4-5,SPINAL STENOSIS L4-5,LOWER EXTREMITY RADICULOPATHY,FACET ATHROSIS L4-5. History of Any Multi-Drug Resistant Organisms: None Reported Past Surgical History: Orthopedic Surgery Additional Past Surgical History / Comment(s): 05-28-15 LAMINECTOMY AND DECOMPRESSION L4-5, PORFIRIO BUNIONECTOMY, RT CARPAL TUNNEL Past Anesthesia/Blood Transfusion Reactions: Motion Sickness, Postoperative Nausea & Vomiting (PONV) Past Psychological History: No Psychological Hx Reported Smoking Status: Former smoker Past Alcohol Use History: None Reported Past Drug Use History: None Reported - Past Family History Sister(s) Family Medical History: Cancer Mother Family Medical History: COPD Additional Family Medical History / Comment(s): EMPHYSEMA Father Family Medical History: Myocardial Infarction ([place]) General Exam Limitations: no limitations General appearance: alert, in no apparent distress Head exam: Present: atraumatic, normocephalic, normal inspection Eye exam: Present: normal appearance, PERRL, EOMI. Absent: scleral icterus, conjunctival injection, periorbital swelling ENT exam: Present: normal exam, normal oropharynx, mucous membranes moist, TM's normal bilaterally Neck exam: Present: normal inspection, full ROM. Absent: tenderness, meningismus, lymphadenopathy Respiratory exam: Present: respiratory distress ([id number]), wheezes. Absent: normal lung sounds bilaterally, rales, rhonchi, stridor Cardiovascular Exam: Present: regular rate, normal rhythm, normal heart sounds. Absent: systolic murmur, diastolic murmur, rubs, gallop, clicks GI/Abdominal exam: Present: soft, normal bowel sounds. Absent: distended, tenderness, guarding, rebound, rigid Skin exam: Present: warm, dry, intact, normal color. Absent: rash Course Vital Signs 10/07/17 10/07/17 10/07/17 11:51 12:26 12:28 Temperature 97 F L Pulse Rate 70 66 Respiratory 30 H 28 H 24 Rate Blood Pressure 139/88 160/95 O2 Sat by Pulse 95 97 Oximetry 10/07/17 10/07/17 10/07/17 12:31 12:51 13:00 Temperature Pulse Rate 65 69 88 Respiratory 28 H Rate Blood Pressure O2 Sat by Pulse 96 Oximetry 10/07/17 10/07/17 10/07/17 13:52 13:55 14:00 Temperature Pulse Rate 74 105 H Respiratory 26 H Rate Blood Pressure 136/62 O2 Sat by Pulse 93 L 95 Oximetry 10/07/17 14:12 Temperature Pulse Rate 75 Respiratory Rate Blood Pressure O2 Sat by Pulse Oximetry Medical Decision Making - Medical Decision Making 62-year-old female presented for cough congestion shortness breath. Patient has significant wheezing mild respirator distress. Also symptoms related to coughing spasms. Patient we admitted for IV steroids, breathing treatments. [facility] down at this point. Patient had multiple steroid injections outpatient has failed outpatient treatment at this time. - Lab Data Result diagrams: 10/07/17 12:15 10/07/17 12:15 Lab Results 10/07/17 10/07/17 10/07/17 Range/Units 12:15 12:15 12:15 WBC 15.1 H (3.8-10.6) k/uL RBC 5.51 H (3.80-5.40) m/uL Hgb 14.7 (11.4-16.0) gm/dL Hct 42.8 (34.0-46.0) % MCV 77.8 L (80.0-100.0) fL MCH 26.6 (25.0-35.0) pg MCHC 34.3 (31.0-37.0) g/dL RDW 15.0 (11.5-15.5) % Plt Count 285 (150-450) k/uL Neutrophils % 78 % Lymphocytes % 15 % Monocytes % 5 % Eosinophils % 1 % Basophils % 0 % Neutrophils # 11.7 H (1.3-7.7) k/uL Lymphocytes # 2.2 (1.0-4.8) k/uL Monocytes # 0.7 (0-1.0) k/uL Eosinophils # 0.1 (0-0.7) k/uL Basophils # 0.0 (0-0.2) k/uL PT (9.0-12.0) sec INR (<1.2) APTT (22.0-30.0) sec Sodium 137 (137-145) mmol/L Potassium 4.6 (3.5-5.1) mmol/L Chloride 99 (98-107) mmol/L Carbon Dioxide 27 (22-30) mmol/L Anion Gap 11 mmol/L BUN 29 H (7-17) mg/dL Creatinine 0.69 (0.52-1.04) mg/dL Est GFR (CKD-EPI)AfAm >90 (>60 ml/min/1.73 sqM) Est GFR (CKD-EPI)NonAf >90 (>60 ml/min/1.73 sqM) Glucose 92 (74-99) mg/dL Plasma Lactic Acid Dejon (0.7-2.0) mmol/L Calcium 10.0 (8.4-10.2) mg/dL Magnesium 2.2 (1.6-2.3) mg/dL Total Bilirubin 1.0 (0.2-1.3) mg/dL AST 17 (14-36) U/L ALT 40 (9-52) U/L Alkaline Phosphatase 107 (38-126) U/L Total Creatine Kinase 25 L (30-135) U/L CK-MB (CK-2) 0.9 (0.0-2.4) ng/mL CK-MB (CK-2) Rel Index 3.6 Troponin I <0.012 (0.000-0.034) ng/mL Total Protein 7.1 (6.3-8.2) g/dL Albumin 4.4 (3.5-5.0) g/dL 10/07/17 10/07/17 Range/Units 12:15 12:15 WBC (3.8-10.6) k/uL RBC (3.80-5.40) m/uL Hgb (11.4-16.0) gm/dL Hct (34.0-46.0) % MCV (80.0-100.0) fL MCH (25.0-35.0) pg MCHC (31.0-37.0) g/dL RDW (11.5-15.5) % Plt Count (150-450) k/uL Neutrophils % % Lymphocytes % % Monocytes % % Eosinophils % % Basophils % % Neutrophils # (1.3-7.7) k/uL Lymphocytes # (1.0-4.8) k/uL Monocytes # (0-1.0) k/uL Eosinophils # (0-0.7) k/uL Basophils # (0-0.2) k/uL PT 9.6 (9.0-12.0) sec INR 1.0 (<1.2) APTT 20.1 L (22.0-30.0) sec Sodium (137-145) mmol/L Potassium (3.5-5.1) mmol/L Chloride (98-107) mmol/L Carbon Dioxide (22-30) mmol/L Anion Gap mmol/L BUN (7-17) mg/dL Creatinine (0.52-1.04) mg/dL Est GFR (CKD-EPI)AfAm (>60 ml/min/1.73 sqM) Est GFR (CKD-EPI)NonAf (>60 ml/min/1.73 sqM) Glucose (74-99) mg/dL Plasma Lactic Acid Dejon 2.0 (0.7-2.0) mmol/L Calcium (8.4-10.2) mg/dL Magnesium (1.6-2.3) mg/dL Total Bilirubin (0.2-1.3) mg/dL AST (14-36) U/L ALT (9-52) U/L Alkaline Phosphatase (38-126) U/L Total Creatine Kinase (30-135) U/L CK-MB (CK-2) (0.0-2.4) ng/mL CK-MB (CK-2) Rel Index Troponin I (0.000-0.034) ng/mL Total Protein (6.3-8.2) g/dL Albumin (3.5-5.0) g/dL - EKG Data EKG Comments: EKG performed at 13:50 normal sinus rhythm unspecific ST changes, rate of 69 FL 184 QRS 80 QT/QTC 4:30/460 Disposition Clinical Impression: Acute exacerbation of chronic obstructive pulmonary disease (COPD), Failure of outpatient treatment Disposition: ADMITTED IP TO THIS HOSP Condition: Fair Is patient prescribed a controlled substance at d/c from ED?: No Referrals: Tova Mcghee MD [Primary Care Provider] - 1-2 days
[2017-10-07] MEDS ORDERED: NITROGLYCERIN SL TABS 0.4 MG TAB SUBLINGUAL PRN (14:26)
[2017-10-07] MEDS ORDERED: MORPHINE SULFATE 4 MG/0.8 ML SYRINGE (INJ) IVP ONE (16:19)
[2017-10-07] MEDS ORDERED: diphenhydrAMINE 50 MG/ML 1 ML VIAL IVP STA (16:19)
[2017-10-07] MEDS ORDERED: MORPHINE SULFATE 4MG/4ML SYRG ONE (16:21)
[2017-10-07 17:45] LABS: Glucose,Whole Blood 125 mg/dL (75-99)
[2017-10-07] MEDS: MORPHINE SULFATE 4 MG/0.8 ML SYRINGE (INJ) IVP PRN (20:51)
[2017-10-07 20:59] LABS: Glucose,Whole Blood 196 mg/dL (75-99)
[2017-10-07] MEDS: IPRATROPIUM-ALBUTEROL 3 ML NEB INHALATION PRN (20:59)
[2017-10-07] MEDS: INSULIN ASPART 100 UNIT/ML 1 ML 10 ML VIAL SQ SCH (20:59)
[2017-10-07] MEDS: methylPREDNISolone SOD SUCCI 125 MG/2 ML VIAL IV SCH (23:18)
[2017-10-07] MEDS: BENZONATATE 100 MG CAP PO SCH (23:19)
[2017-10-08] MEDS: MORPHINE SULFATE 4 MG/0.8 ML SYRINGE (INJ) IVP PRN ×4 (00:20→09:23)
[2017-10-08] MEDS: LEVOTHYROXINE 100 MCG TAB PO SCH (06:21)
[2017-10-08] MEDS: methylPREDNISolone SOD SUCCI 125 MG/2 ML VIAL IV SCH ×4 (06:22→23:54)
[2017-10-08] MEDS: MONTELUKAST 10 MG TAB PO SCH (07:19)
[2017-10-08] MEDS: BENZONATATE 100 MG CAP PO SCH ×3 (07:19→21:47)
[2017-10-08] MEDS: LISINOPRIL-HCTZ 20-25 MG 1 EACH TAB PO SCH (07:19)
[2017-10-08] MEDS: EZETIMIBE 10 MG TAB PO SCH (07:19)
[2017-10-08] MEDS: INSULIN ASPART 100 UNIT/ML 1 ML 10 ML VIAL SQ SCH ×4 (07:49→21:47)
[2017-10-08 08:07] LABS: Glucose,Whole Blood 137 mg/dL (75-99)
[2017-10-08] MEDS: IPRATROPIUM-ALBUTEROL 3 ML NEB INHALATION PRN ×3 (08:42→15:56)
[2017-10-08 08:58] LABS: Cholesterol 263 mg/dL (<200); HDL Cholesterol 72 mg/dL (40-60); LDL Cholesterol,Calculated 165 mg/dL (0-99); Triglycerides 129 mg/dL (<150)
[2017-10-08] MEDS ORDERED: PROCHLORPERAZINE 5 MG TAB PO PRN (10:52)
[2017-10-08 11:15] LABS: Hemoglobin A1C 6.4 % (4.0-6.0)
[2017-10-08] MEDS: DIAZEPAM 5 MG TAB PO PRN ×3 (11:25→19:21)
[2017-10-08 12:31] LABS: Glucose,Whole Blood 165 mg/dL (75-99)
--- NOTE | 2017-10-08 13:51 | P.HPIM ---
History of Present Illness H&P Date: 10/08/17 Chief Complaint: Cough and shortness of breath Keiry Javier is a 62-year-old female who presented to [facility] emergency room with a chief complaint of cough and shortness of breath she states that she started getting sick on September 22 she was treated by her primary care physician with oral antibiotic oral steroids and inhaled bronchodilators patient stated that she improved slightly but her symptoms were worsening again and she decided to come to emergency room for further evaluation , in the emergency room patient had a chest x-ray which was suspicious for pneumonia she was started on IV antibiotic and IV steroids and was admitted to medical floor pulmonary consultation was requested. Patient had a prolonged history of smoking she smoked for more than 30 years she quit 15 years ago, she was diagnosed with COPD in the past, she was tried on Dulera inhaler however she was unable to tolerate due to throat irritation and this was discontinued about 2 years ago, she has not been on any other medications for COPD, she was recently started on albuterol nebulizer. Patient stated that there is a possible history of a heart attack about 5 years ago, patient never had a cardiac catheterization she denies having any other cardiac history, no history of congestive heart failure per patient. Past Medical History Past Medical History: COPD, GERD/Reflux, Hyperlipidemia, Hypertension, Pneumonia , Thyroid Disorder Additional Past Medical History / Comment(s): SPONDYLOLISTHESIS L4-5,SPINAL STENOSIS L4-5,LOWER EXTREMITY RADICULOPATHY,FACET ATHROSIS L4-5. History of Any Multi-Drug Resistant Organisms: None Reported Past Surgical History: Appendectomy, Section, Hysterectomy, Orthopedic Surgery, Tonsillectomy Additional Past Surgical History / Comment(s): 05-28-15 LAMINECTOMY AND DECOMPRESSION L4-5, PORFIRIO BUNIONECTOMY(WOUND INFECTION HARDWARE REMVED AND I&D) THEN HAD REVISON LAMINECTOMY/FUSION L4-5, RT CARPAL TUNNEL, 3 C-SECTIONS. Past Anesthesia/Blood Transfusion Reactions: Motion Sickness, Postoperative Nausea & Vomiting (PONV) Additional Past Anesthesia/Blood Transfusion Reaction / Comment(s): CLAUSTERPHOBIA Smoking Status: Former smoker - Past Family History Sister(s) Family Medical History: Cancer Mother Family Medical History: COPD Additional Family Medical History / Comment(s): EMPHYSEMA Father Family Medical History: Myocardial Infarction ([place]) Medications and Allergies Home Medications Medication Instructions Recorded Confirmed Type Levothyroxine Sodium [Synthroid] 100 mcg PO DAILY 05/19/15 10/07/17 History Lisinopril/Hydrochlorothiazide 1 tab PO DAILY 09/20/15 10/07/17 History [Zestoretic 20-] Ezetimibe [Zetia] 10 mg PO DAILY 08/18/16 10/07/17 History Montelukast [Singulair] 10 mg PO DAILY 08/18/16 10/07/17 History Albuterol Nebulized [Ventolin 2.5 mg INHALATION RT-Q6H PRN 10/07/17 10/07/17 History Nebulized] Allergies Allergy/AdvReac Type Severity Reaction Status Date / Time acetaminophen Allergy Rash/Hives Verified 10/07/17 12:28 [From Darvocet-N] aspirin Allergy Rash/Hives Verified 10/07/17 12:28 [From Empirin W/Codeine] azithromycin Allergy Rash/Hives Verified 10/07/17 12:28 baclofen Allergy Rash/Hives Verified 10/07/17 12:28 butalbital [From Fioricet] Allergy Rash/Hives Verified 10/07/17 12:28 caffeine [From Fioricet] Allergy Rash/Hives Verified 10/07/17 12:28 codeine Allergy Rash/Hives Verified 10/07/17 12:28 codeine phosphate Allergy Rash/Hives Verified 10/07/17 12:28 [From Empirin W/Codeine] cyclobenzaprine HCl Allergy Rash/Hives Verified 10/07/17 12:28 [From Flexeril] etodolac [From [place]od[place]] Allergy Rash/Hives Verified 10/07/17 12:28 ezetimibe [From Vytorin] Allergy Rash/Hives Verified 10/07/17 12:28 flurazepam HCl [From Dalmane] Allergy Rash/Hives Verified 10/07/17 12:28 hydrocodone [From [place]] Allergy Rash/Hives Verified 10/07/17 12:28 hydrocodone bitartrate Allergy Rash/Hives Verified 10/07/17 12:28 [From Vicodin] ketorolac tromethamine Allergy Rash/Hives Verified 10/07/17 12:28 [From Toradol] meperidine HCl [From Demerol] Allergy Rash/Hives Verified 10/07/17 12:28 morphine Allergy Rash/Hives Verified 10/08/17 12:30 orphenadrine citrate Allergy Rash/Hives Verified 10/07/17 12:28 [From Norflex] Penicillins Allergy Rash/Hives Verified 10/07/17 12:28 pentazocine lactate Allergy Rash/Hives Verified 10/07/17 12:28 [From [place]win] propoxyphene HCl Allergy Rash/Hives Verified 10/07/17 12:28 [From Darvon] propoxyphene napsylate Allergy Rash/Hives Verified 10/07/17 12:28 [From Darvocet-N] simvastatin [From Vytorin] Allergy Rash/Hives Verified 10/07/17 12:28 Physical Exam Vitals: Vital Signs Temp Pulse Pulse Resp BP BP BP 10/08/17 13:36 88 10/08/17 13:23 88 10/08/17 08:56 88 10/08/17 08:42 84 10/08/17 06:00 97.6 F 75 20 137/78 10/07/17 23:00 97.7 F 78 24 117/79 10/07/17 21:09 76 10/07/17 20:59 76 10/07/17 17:45 97.7 F 89 22 129/84 10/07/17 17:01 98.0 F 63 22 154/84 10/07/17 16:45 98.3 F 68 22 147/81 10/07/17 16:22 73 22 10/07/17 15:00 98.1 F 73 22 135/66 10/07/17 14:12 75 10/07/17 14:00 105 H 26 H 136/62 10/07/17 13:55 74 10/07/17 13:52 Pulse Ox 10/08/17 13:36 10/08/17 13:23 10/08/17 08:56 10/08/17 08:42 10/08/17 06:00 93 L 10/07/17 23:00 91 L 10/07/17 21:09 10/07/17 20:59 10/07/17 17:45 94 L 10/07/17 17:01 93 L 10/07/17 16:45 94 L 10/07/17 16:22 93 L 10/07/17 15:00 94 L 10/07/17 14:12 10/07/17 14:00 95 10/07/17 13:55 10/07/17 13:52 93 L Intake and Output 10/07/17 10/08/17 10/08/17 22:59 06:59 14:59 Intake Total 400 100 Balance 400 100 Intake: Oral 400 100 Other: Voiding Method Toilet # Voids 1 1 1 In general patient is alert and oriented 3 in no apparent distress HEENT head normocephalic and atraumatic Neck is supple no JVD no goiter no lymphadenopathy Chest exam reveals a few scattered crackles no wheezing Cardiac exam reveals regular heart sounds no gallops no murmurs Abdomen is soft nontender no organomegaly with normal bowel sounds Extremity exam reveals no edema no cyanosis or clubbing Results CBC & Chem 7: 10/07/17 12:15 10/07/17 12:15 Labs: Abnormal Lab Results - Last 24 Hours (Table) 10/07/17 10/07/17 10/08/17 Range/Units 17:38 20:55 07:25 POC Glucose (mg/dL) 125 H 196 H 137 H (75-99) mg/dL Cholesterol (<200) mg/dL LDL Cholesterol, Calc (0-99) mg/dL HDL Cholesterol (40-60) mg/dL 10/08/17 10/08/17 Range/Units 08:36 12:21 POC Glucose (mg/dL) 165 H (75-99) mg/dL Cholesterol 263 H (<200) mg/dL LDL Cholesterol, Calc 165 H (0-99) mg/dL HDL Cholesterol 72 H (40-60) mg/dL Thrombosis Risk Factor Assmnt - Choose All That Apply Each Factor Represents 1 point: Abnormal pulmonary function (COPD), Obesity ( BMI >25) Each Risk Factor Represents 2 Points: Age 61-74 years Thrombosis Risk Factor Assessment Total Risk Factor Score: 4 Thrombosis Risk Factor Assessment Level: Moderate Risk Assessment and Plan Plan: #1 acute exacerbation of chronic obstructive pulmonary disease #2 bilateral infiltrate suspected pneumonia #3 underlying history of hypertension #4 underlying history of hypothyroidism #5 hyperglycemia due to steroid use started on insulin sliding scale #5 underlying history of hyperlipidemia At this time will continue with IV Levaquin IV steroids and inhaled bronchodilators Pulmonary consultation was requested Will follow in a.m.
[2017-10-08] MEDS: LEVOFLOXACIN 500MG-D5W PMX 500 MG in DEXTROSE/WATER 1 100ML.BAG IVPB SCH (15:10)
--- NOTE | 2017-10-08 16:48 | P.CNPUL ---
History of Present Illness Consult date: 10/08/17 Reason for consult: COPD History of present illness: 62-year-old female patient with known history of COPD was coming in for increased dyspnea cough chest that is so wheezing. The patient has been having the symptoms for almost 3-4 weeks. She has seen her primary care physician and she was given a course of Levaquin and a prednisone burst taper without much of an improvement. For that reason the patient came into the hospital for worsening shortness of breath. No history of asthma. She is an ex-smoker she smoked around 37 years and she quit smoking about 17 years ago. No hemoptysis. No pleurisy. No angina. No swelling lower extremity. No CHF. The patient' s chest x-ray shows chronic parenchymal changes with a patchy bibasilar atelectasis/infiltrates. The patient was recommended 15.1. The lactic acid level was at 2.0. The influenza screen has been negative. The liver function tests are essentially within normal limits. Troponin is negative. She is currently on a combination of DuoNeb nebulized treatments, IV Solu-Medrol, IV Levaquin and she is feeling slightly better compared to yesterday. Comorbid conditions include hypothyroidism and hyperlipidemia and hypertension. No previous bouts of pneumonias or respiratory failure. Review of Systems Constitutional: Reports fatigue, Reports weakness Eyes: denies blurred vision, denies bulging eye, denies decreased vision Ears: deny: decreased hearing, ear discharge, earache Ears, nose, mouth and throat: Denies headache, Denies sore throat Cardiovascular: Reports decreased exercise tolerance, Reports dyspnea on exertion, Reports shortness of breath Respiratory: Reports cough, Reports cough with sputum, Reports dyspnea, Reports wheezing Gastrointestinal: Denies abdominal pain, Denies diarrhea, Denies nausea, Denies vomiting Genitourinary: Denies dysuria, Denies hematuria Menstruation: Reports as per HPI Musculoskeletal: Denies myalgias Musculoskeletal: absent: ankle pain, ankle stiffness, ankle swelling Integumentary: Denies pruritus, Denies rash Neurological: Denies numbness, Denies weakness Psychiatric: Denies anxiety, Denies depression Endocrine: Denies fatigue, Denies weight change Past Medical History Past Medical History: COPD, GERD/Reflux, Hyperlipidemia, Hypertension, Pneumonia , Thyroid Disorder Additional Past Medical History / Comment(s): COPD, hypertension, hyperlipidemia , hypothyroidism, spondylolisthesis L4-L5, spinal stenosis L4-L5, radiculopathy, History of Any Multi-Drug Resistant Organisms: None Reported Past Surgical History: Appendectomy, Section, Hysterectomy, Orthopedic Surgery, Tonsillectomy Additional Past Surgical History / Comment(s): 05-28-15 LAMINECTOMY AND DECOMPRESSION L4-5, PORFIRIO BUNIONECTOMY(WOUND INFECTION HARDWARE REMVED AND I&D) THEN HAD REVISON LAMINECTOMY/FUSION L4-5, RT CARPAL TUNNEL, 3 C-SECTIONS. Past Anesthesia/Blood Transfusion Reactions: Motion Sickness, Postoperative Nausea & Vomiting (PONV) Additional Past Anesthesia/Blood Transfusion Reaction / Comment(s): CLAUSTERPHOBIA Smoking Status: Former smoker - Past Family History Sister(s) Family Medical History: Cancer Mother Family Medical History: COPD Additional Family Medical History / Comment(s): EMPHYSEMA Father Family Medical History: Myocardial Infarction ([place]) Medications and Allergies Home Medications Medication Instructions Recorded Confirmed Type Levothyroxine Sodium [Synthroid] 100 mcg PO DAILY 05/19/15 10/07/17 History Lisinopril/Hydrochlorothiazide 1 tab PO DAILY 09/20/15 10/07/17 History [Zestoretic 20-25] Ezetimibe [Zetia] 10 mg PO DAILY 08/18/16 10/07/17 History Montelukast [Singulair] 10 mg PO DAILY 08/18/16 10/07/17 History Albuterol Nebulized [Ventolin 2.5 mg INHALATION RT-Q6H PRN 10/07/17 10/07/17 History Nebulized] Allergies Allergy/AdvReac Type Severity Reaction Status Date / Time acetaminophen Allergy Rash/Hives Verified 10/07/17 12:28 [From Darvocet-N] aspirin Allergy Rash/Hives Verified 10/07/17 12:28 [From Empirin W/Codeine] azithromycin Allergy Rash/Hives Verified 10/07/17 12:28 baclofen Allergy Rash/Hives Verified 10/07/17 12:28 butalbital [From Fioricet] Allergy Rash/Hives Verified 10/07/17 12:28 caffeine [From Fioricet] Allergy Rash/Hives Verified 10/07/17 12:28 codeine Allergy Rash/Hives Verified 10/07/17 12:28 codeine phosphate Allergy Rash/Hives Verified 10/07/17 12:28 [From Empirin W/Codeine] cyclobenzaprine HCl Allergy Rash/Hives Verified 10/07/17 12:28 [From Flexeril] etodolac [From Lodine] Allergy Rash/Hives Verified 10/07/17 12:28 ezetimibe [From Vytorin] Allergy Rash/Hives Verified 10/07/17 12:28 flurazepam HCl [From Dalmane] Allergy Rash/Hives Verified 10/07/17 12:28 hydrocodone [From Etta] Allergy Rash/Hives Verified 10/07/17 12:28 hydrocodone bitartrate Allergy Rash/Hives Verified 10/07/17 12:28 [From Vicodin] ketorolac tromethamine Allergy Rash/Hives Verified 10/07/17 12:28 [From Toradol] meperidine HCl [From Demerol] Allergy Rash/Hives Verified 10/07/17 12:28 morphine Allergy Rash/Hives Verified 10/08/17 12:30 orphenadrine citrate Allergy Rash/Hives Verified 10/07/17 12:28 [From Norflex] Penicillins Allergy Rash/Hives Verified 10/07/17 12:28 pentazocine lactate Allergy Rash/Hives Verified 10/07/17 12:28 [From Talwin] propoxyphene HCl Allergy Rash/Hives Verified 10/07/17 12:28 [From Darvon] propoxyphene napsylate Allergy Rash/Hives Verified 10/07/17 12:28 [From Darvocet-N] simvastatin [From Vytorin] Allergy Rash/Hives Verified 10/07/17 12:28 Physical Exam Vitals: Vital Signs Temp Pulse Pulse Resp BP BP BP 10/08/17 16:08 90 10/08/17 15:58 90 10/08/17 15:00 97.8 F 76 16 95/53 10/08/17 13:36 88 10/08/17 13:23 88 10/08/17 08:56 88 10/08/17 08:42 84 10/08/17 06:00 97.6 F 75 20 137/78 10/07/17 23:00 97.7 F 78 24 117/79 04/20/18 21:09 76 10/07/17 20:59 76 10/07/17 17:45 97.7 F 89 22 129/84 10/07/17 17:01 98.0 F 63 22 154/84 10/07/17 16:45 98.3 F 68 22 147/81 Pulse Ox 10/08/17 16:08 10/08/17 15:58 95 10/08/17 15:00 95 10/08/17 13:36 10/08/17 13:23 10/08/17 08:56 10/08/17 08:42 10/08/17 06:00 93 L 10/07/17 23:00 91 L 10/07/17 21:09 10/07/17 20:59 10/07/17 17:45 94 L 10/07/17 17:01 93 L 10/07/17 16:45 94 L Intake and Output 10/08/17 10/08/17 10/08/17 06:59 14:59 22:59 Intake Total 100 Balance 100 Intake: Oral 100 Other: Voiding Method Toilet Toilet # Voids 1 1 Gen. appearance, comfortable likely distress. Occasional coughing spells especially when talking.Head exam was generally normal. There was no scleral icterus or corneal arcus. Mucous membranes were moist.Neck was supple and without jugular venous distension, thyromegaly, or carotid bruits. Carotids were easily palpable bilaterally. There was no adenopathy. Lung sounds are diminished bilaterally in the patient is Extremity wheezes throughout lung recinos. Cardiac exam revealed the PMI to be normally situated and sized. The rhythm was regular and no extrasystoles were noted during several minutes of auscultation. The first and second heart sounds were normal and physiologic splitting of the second heart sound was noted. There were no murmurs, rubs, clicks, or gallops. Abdominal exam revealed normal bowel sounds. The abdomen was soft, non-tender, and without masses, organomegaly, or appreciable enlargement of the abdominal aorta.Examination of the extremities revealed easily palpable radial, femoral and pedal pulses. There was no cyanosis, clubbing or edema.Examination of the skin revealed no evidence of significant rashes, suspicious appearing nevi or other concerning lesions. Neurologically the patient is awake and alert and there is no focal neurological deficit at this point. Results - Laboratory Findings CBC and BMP: 10/07/17 12:15 10/07/17 12:15 PT/INR, D-dimer PT 9.6 sec (9.0-12.0) 10/07/17 12:15 INR 1.0 (<1.2) 10/07/17 12:15 Abnormal lab findings: Abnormal Labs 10/07/17 10/07/17 10/07/17 12:15 12:15 12:15 WBC 15.1 H RBC 5.51 H MCV 77.8 L Neutrophils # 11.7 H APTT BUN 29 H POC Glucose (mg/dL) Total Creatine Kinase 25 L Cholesterol LDL Cholesterol, Calc HDL Cholesterol 10/07/17 10/07/17 10/07/17 12:15 17:38 20:55 WBC RBC MCV Neutrophils # APTT 20.1 L BUN POC Glucose (mg/dL) 125 H 196 H Total Creatine Kinase Cholesterol LDL Cholesterol, Calc HDL Cholesterol 10/08/17 10/08/17 10/08/17 07:25 08:36 12:21 WBC RBC MCV Neutrophils # APTT BUN POC Glucose (mg/dL) 137 H 165 H Total Creatine Kinase Cholesterol 263 H LDL Cholesterol, Calc 165 H HDL Cholesterol 72 H - Diagnostic Findings Chest x-ray: image reviewed Assessment and Plan Plan: Assessment 1 acute COPD exacerbation 2 shortness of breath secondary to above 3 limited bibasilar infiltrates/atelectasis. Pneumonia is doubtful as the patient has been treated in outpatient basis with Levaquin. 4 hypertension 5 hyperlipidemia 6 obesity 7 hypothyroidism Plan Agree on the current treatment. I question the benefit of Levaquin knowing that the patient was treated with same antibiotics on outpatient basis. In any rate, I personally don't think that the patient has pneumonia. Continue bronchodilators and steroids. We'll continue to follow. His intake is most consistent with acute COPD exacerbation.
[2017-10-08 17:31] LABS: Glucose,Whole Blood 187 mg/dL (75-99)
[2017-10-08 21:46] LABS: Glucose,Whole Blood 170 mg/dL (75-99)
[2017-10-08] MEDS: AMITRIPTYLINE HCL 50 MG TAB PO SCH (21:47)
[2017-10-09] MEDS: methylPREDNISolone SOD SUCCI 125 MG/2 ML VIAL IV SCH ×3 (06:31→18:19)
[2017-10-09] MEDS: LEVOTHYROXINE 100 MCG TAB PO SCH (06:31)
[2017-10-09] MEDS: IPRATROPIUM-ALBUTEROL 3 ML NEB INHALATION PRN ×3 (07:15→14:47)
[2017-10-09 07:25] LABS: Glucose,Whole Blood 136 mg/dL (75-99)
[2017-10-09] MEDS: INSULIN ASPART 100 UNIT/ML 1 ML 10 ML VIAL SQ SCH ×4 (08:27→21:28)
[2017-10-09] MEDS: LISINOPRIL-HCTZ 20-25 MG 1 EACH TAB PO SCH (08:28)
[2017-10-09] MEDS: EZETIMIBE 10 MG TAB PO SCH (08:28)
[2017-10-09] MEDS: MONTELUKAST 10 MG TAB PO SCH (08:28)
[2017-10-09] MEDS: BENZONATATE 100 MG CAP PO SCH ×3 (08:28→21:23)
[2017-10-09] MEDS: ENOXAPARIN 40 MG/0.4 ML SYRINGE SQ SCH (08:28)
[2017-10-09 11:58] LABS: Glucose,Whole Blood 174 mg/dL (75-99)
[2017-10-09] MEDS: DIAZEPAM 5 MG TAB PO PRN ×2 (12:17→19:33)
[2017-10-09] MEDS: LEVOFLOXACIN 500MG-D5W PMX 500 MG in DEXTROSE/WATER 1 100ML.BAG IVPB SCH (13:44)
--- NOTE | 2017-10-09 14:33 | P.PN ---
Subjective Progress Note Date: 10/09/17 This 62-year-old female patient was seen in consultation yesterday and she has symptoms of an acute COPD exacerbation taken bronchitis. She was quite bronchospastic and wheezy and she was unable to speak without having to cough. She was unable to bring, sputum. No hemoptysis or pleurisy. She remains afebrile. She continues to bronchodilators and steroids and she is improved compared to yesterday. She is able to speak of longer sentences. No chest pain. Sinus and nasal congestion is improved. Chest congestion is also improved. The white cell count is at 15.1. Influenza screen was negative. Blood cultures also negative. Objective - Vital Signs Vital signs: Vital Signs Temp 97.0 F L 10/09/17 07:13 Pulse 72 10/09/17 11:20 Resp 18 10/09/17 07:13 BP 108/67 10/09/17 07:13 Pulse Ox 90 L 10/09/17 07:13 Intake & Output 10/08/17 10/09/17 10/09/17 18:59 06:59 18:59 Intake Total 300 580 Balance 300 580 Weight 78.018 kg Intake: Intake, IV Titration 100 Amount Levofloxacin 500Mg-D5w 100 Pmx 500 mg In Dextrose/ Water 1 100ml.bag @ 100 mls/hr IVPB Q24H [facility] Rx#: [id number] Oral 300 480 Other: Voiding Method Toilet Toilet # Voids 1 1 2 # Bowel Movements 2 - Exam Gen. appearance, comfortable likely distress. Occasional coughing spells especially when talking.Head exam was generally normal. There was no scleral icterus or corneal arcus. Mucous membranes were moist.Neck was supple and without jugular venous distension, thyromegaly, or carotid bruits. Carotids were easily palpable bilaterally. There was no adenopathy. Lung sounds are diminished bilaterally in the patient is Extremity wheezes throughout lung recinos. Cardiac exam revealed the PMI to be normally situated and sized. The rhythm was regular and no extrasystoles were noted during several minutes of auscultation. The first and second heart sounds were normal and physiologic splitting of the second heart sound was noted. There were no murmurs, rubs, clicks, or gallops. Abdominal exam revealed normal bowel sounds. The abdomen was soft, non-tender, and without masses, organomegaly, or appreciable enlargement of the abdominal aorta.Examination of the extremities revealed easily palpable radial, femoral and pedal pulses. There was no cyanosis, clubbing or edema.Examination of the skin revealed no evidence of significant rashes, suspicious appearing nevi or other concerning lesions. Neurologically the patient is awake and alert and there is no focal neurological deficit at this point. - Labs CBC & Chem 7: 10/07/17 12:15 10/07/17 12:15 Labs: Abnormal Lab Results - Last 24 Hours (Table) 10/07/17 10/08/17 10/08/17 Range/Units 23:35 17:27 21:38 POC Glucose (mg/dL) 187 H 170 H (75-99) mg/dL Hemoglobin A1c 6.4 H (4.0-6.0) % 10/09/17 10/09/17 Range/Units 07:12 11:54 POC Glucose (mg/dL) 136 H 174 H (75-99) mg/dL Hemoglobin A1c (4.0-6.0) % Microbiology - Last 24 Hours (Table) 10/07/17 12:15 Blood Culture - Preliminary Blood No Growth after 48 hours Assessment and Plan Plan: Assessment 1 acute COPD exacerbation, improving compared to yesterday and the patient is less short of breath over spastic and wheezy. 2 shortness of breath secondary to above 3 limited bibasilar infiltrates/atelectasis. Pneumonia is doubtful as the patient has been treated in outpatient basis with Levaquin. 4 hypertension 5 hyperlipidemia 6 obesity 7 hypothyroidism Plan Continue same treatment. The patient is improving. Continue bronchodilators and steroids and high-dose IV Solu-Medrol. Anticipate further recovery by tomorrow. We'll follow.
--- NOTE | 2017-10-09 15:53 | P.PN ---
Subjective Progress Note Date: 10/09/17 Keiry Javier is a 62-year-old female who presented to [facility] emergency room with a chief complaint of cough and shortness of breath she states that she started getting sick on September 22 she was treated by her primary care physician with oral antibiotic oral steroids and inhaled bronchodilators patient stated that she improved slightly but her symptoms were worsening again and she decided to come to emergency room for further evaluation , in the emergency room patient had a chest x-ray which was suspicious for pneumonia she was started on IV antibiotic and IV steroids and was admitted to medical floor pulmonary consultation was requested. Patient had a prolonged history of smoking she smoked for more than 30 years she quit 15 years ago, she was diagnosed with COPD in the past, she was tried on Dulera inhaler however she was unable to tolerate due to throat irritation and this was discontinued about 2 years ago, she has not been on any other medications for COPD, she was recently started on albuterol nebulizer. Patient stated that there is a possible history of a heart attack about 5 years ago, patient never had a cardiac catheterization she denies having any other cardiac history, no history of congestive heart failure per patient. On 10/08/2011 2018 patient is feeling better she is alert and oriented 3 she was seen and examined she is still complaining of cough or shortness of breath has improved she is still complaining of shortness of breath after walking otherwise she denies any other complaints there is no fever or chills no chest pain no nausea or vomiting no abdominal pain and no urinary symptoms Objective - Vital Signs Vital signs: Vital Signs Temp 99.7 F H 10/09/17 15:00 Pulse 95 10/09/17 15:00 Resp 18 10/09/17 15:00 BP 114/63 10/09/17 15:00 Pulse Ox 95 10/09/17 15:00 Intake & Output 10/08/17 10/09/17 10/09/17 18:59 06:59 18:59 Intake Total 300 580 Balance 300 580 Weight 78.018 kg Intake: Intake, IV Titration 100 Amount Levofloxacin 500Mg-D5w 100 Pmx 500 mg In Dextrose/ Water 1 100ml.bag @ 100 mls/hr IVPB Q24H [facility] Rx#: [id number] Oral 300 480 Other: Voiding Method Toilet Toilet # Voids 1 1 2 # Bowel Movements 2 - Exam In general patient is alert and oriented 3 in no apparent distress HEENT head normocephalic and atraumatic Neck is supple no JVD no goiter no lymphadenopathy Chest exam reveals a few scattered crackles no wheezing Cardiac exam reveals regular heart sounds no gallops no murmurs Abdomen is soft nontender no organomegaly with normal bowel sounds Extremity exam reveals no edema no cyanosis or clubbing - Labs CBC & Chem 7: 10/07/17 12:15 10/07/17 12:15 Labs: Abnormal Lab Results - Last 24 Hours (Table) 10/07/17 10/08/17 10/08/17 Range/Units 23:35 17:27 21:38 POC Glucose (mg/dL) 187 H 170 H (75-99) mg/dL Hemoglobin A1c 6.4 H (4.0-6.0) % 10/09/17 10/09/17 Range/Units 07:12 11:54 POC Glucose (mg/dL) 136 H 174 H (75-99) mg/dL Hemoglobin A1c (4.0-6.0) % Microbiology - Last 24 Hours (Table) 10/07/17 12:15 Blood Culture - Preliminary Blood No Growth after 48 hours Assessment and Plan Plan: #1 acute exacerbation of chronic obstructive pulmonary disease #2 bilateral infiltrate suspected pneumonia #3 underlying history of hypertension #4 underlying history of hypothyroidism #5 hyperglycemia due to steroid use started on insulin sliding scale #5 underlying history of hyperlipidemia At this time will continue with IV Levaquin IV steroids and inhaled bronchodilators Pulmonary consultation was requested Will recheck chest x-ray in a.m. Will check pulse ox post ambulation to assess if patient needs home oxygen Will follow in a.m.
[2017-10-09 17:15] LABS: Glucose,Whole Blood 121 mg/dL (75-99)
[2017-10-09 21:11] LABS: Glucose,Whole Blood 153 mg/dL (75-99)
[2017-10-09] MEDS: AMITRIPTYLINE HCL 50 MG TAB PO SCH (21:23)
[2017-10-10] MEDS: methylPREDNISolone SOD SUCCI 125 MG/2 ML VIAL IV SCH ×4 (00:15→17:13)
[2017-10-10] MEDS: LEVOTHYROXINE 100 MCG TAB PO SCH (06:23)
[2017-10-10 07:01] LABS: Glucose,Whole Blood 177 mg/dL (75-99)
[2017-10-10] MEDS: ENOXAPARIN 40 MG/0.4 ML SYRINGE SQ SCH (08:01)
[2017-10-10] MEDS: MONTELUKAST 10 MG TAB PO SCH (08:01)
[2017-10-10] MEDS: INSULIN ASPART 100 UNIT/ML 1 ML 10 ML VIAL SQ SCH ×4 (08:01→22:38)
[2017-10-10] MEDS: EZETIMIBE 10 MG TAB PO SCH (08:01)
[2017-10-10] MEDS: BENZONATATE 100 MG CAP PO SCH ×3 (08:01→22:38)
[2017-10-10] MEDS: LISINOPRIL-HCTZ 20-25 MG 1 EACH TAB PO SCH (08:01)
--- NOTE | 2017-10-10 08:23 | XR ---
EXAMINATION TYPE: XR chest 2V DATE OF EXAM: 10/10/2017 COMPARISON: 10/07/2017 HISTORY: 62 year-old female follow-up pneumonia TECHNIQUE: Frontal and lateral views FINDINGS: Low lung volumes with crowded vascular markings. Heart mildly enlarged. Some patchy right basilar den sity is present. Mild diffuse interstitial prominence. No significant pleural effusion. IMPRESSION: 1. Mild cardiomegaly with hypoventilatory changes. 2. Patchy bibasilar areas of atelectasis or early infiltrate slightly increased.
[2017-10-10 08:43] LABS: Basophils % (A) 0 %; Eosinophils % (A) 0 %; HCT 41.6 % (34.0-46.0); HGB 13.8 gm/dL (11.4-16.0); Lymphocytes # (A) 0.6 k/uL (1.0-4.8); Lymphocytes % (A) 3 %; MCH 26.5 pg (25.0-35.0); MCHC 33.1 g/dL (31.0-37.0); Mean Platelet Volume 7.5; Monocytes # (A) 0.7 k/uL (0-1.0); Monocytes % (A) 4 %; Neutrophils # (A) 18.4 k/uL (1.3-7.7); Neutrophils % (A) 93 %; Platelet Count 248 k/uL (150-450); RDW 15.4 % (11.5-15.5); WBC 19.8 k/uL (3.8-10.6)
[2017-10-10 09:02] LABS: ALT 49 U/L (9-52); AST 23 U/L (14-36); Albumin 3.9 g/dL (3.5-5.0); Alkaline Phosphatase 88 U/L (38-126); Anion Gap 14 mmol/L; Blood Urea Nitrogen 37 mg/dL (7-17); Calcium 9.4 mg/dL (8.4-10.2); Carbon Dioxide 25 mmol/L (22-30); Chloride 99 mmol/L (98-107); Glucose 106 mg/dL (74-99); Potassium 4.3 mmol/L (3.5-5.1); Sodium 138 mmol/L (137-145); Total Bilirubin 0.8 mg/dL (0.2-1.3); Total Protein 6.5 g/dL (6.3-8.2)
[2017-10-10] MEDS: IPRATROPIUM-ALBUTEROL 3 ML NEB INHALATION PRN (09:55)
[2017-10-10] MEDS: LEVOFLOXACIN 500 MG TAB PO SCH (11:28)
[2017-10-10] MEDS: DIAZEPAM 5 MG TAB PO PRN ×3 (11:33→22:38)
[2017-10-10 11:46] LABS: Glucose,Whole Blood 96 mg/dL (75-99)
--- NOTE | 2017-10-10 12:51 | P.PN ---
Subjective Patient is not feeling any better today. She continues to have shortness of breath and persistent cough. Objective - Vital Signs Vital signs: Vital Signs Temp 98.1 F 10/10/17 05:50 Pulse 92 10/10/17 10:06 Resp 16 10/10/17 05:50 BP 149/82 10/10/17 05:50 Pulse Ox 94 L 10/10/17 05:50 Intake & Output 10/09/17 10/10/17 10/10/17 18:59 06:59 18:59 Intake Total 580 Balance 580 Weight 78.018 kg Intake: Intake, IV Titration 100 Amount Levofloxacin 500Mg-D5w 100 Pmx 500 mg In Dextrose/ Water 1 100ml.bag @ 100 mls/hr IVPB Q24H [facility] Rx#: [id number] Oral 480 Other: Voiding Method Toilet Toilet # Voids 1 1 2 # Bowel Movements 2 0 - Exam General: The patient is awake and alert, in no distress Eye: there is normal conjunctiva bilaterally. Neck: The neck is supple, there is no JVD. Cardiovascular: Normal S1-S2, no S3-S4, no murmurs. Respiratory: Lungs are significantly diminished with mild end expiratory wheezing Gastrointestinal: Abdomen is soft, nontender Musculoskeletal: There is no pedal edema. Neurological:. Speech is normal. Skin: Skin is warm and dry - Labs CBC & Chem 7: 10/10/17 07:53 10/10/17 07:53 Labs: Abnormal Lab Results - Last 24 Hours (Table) 10/09/17 10/09/17 10/10/17 Range/Units 17:04 21:08 06:54 WBC (3.8-10.6) k/uL Neutrophils # (1.3-7.7) k/uL Lymphocytes # (1.0-4.8) k/uL BUN (7-17) mg/dL Glucose (74-99) mg/dL POC Glucose (mg/dL) 121 H 153 H 177 H (75-99) mg/dL 10/10/17 10/10/17 Range/Units 07:53 07:53 WBC 19.8 H (3.8-10.6) k/uL Neutrophils # 18.4 H (1.3-7.7) k/uL Lymphocytes # 0.6 L (1.0-4.8) k/uL BUN 37 H (7-17) mg/dL Glucose 106 H (74-99) mg/dL POC Glucose (mg/dL) (75-99) mg/dL Microbiology - Last 24 Hours (Table) 10/07/17 12:15 Blood Culture - Preliminary Blood No Growth after 48 hours Assessment and Plan Assessment: #1 acute exacerbation of chronic obstructive pulmonary disease #2 bilateral infiltrate: May be atelectasis. Patient recently finished antibiotic course for pneumonia #3 underlying history of hypertension #4 underlying history of hypothyroidism #5 hyperglycemia due to steroid use started on insulin sliding scale #5 underlying history of hyperlipidemia
--- NOTE | 2017-10-10 12:59 | P.PN ---
Subjective Progress Note Date: 10/10/17 Principal diagnosis: Acute COPD exacerbation, improving. Limited bibasilar infiltrates/atelectasis, doubt pneumonia This 62-year-old female patient was seen in consultation yesterday and she has symptoms of an acute COPD exacerbation taken bronchitis. She was quite bronchospastic and wheezy and she was unable to speak without having to cough. She was unable to bring, sputum. No hemoptysis or pleurisy. She remains afebrile. She continues to bronchodilators and steroids and she is improved compared to yesterday. She is able to speak of longer sentences. No chest pain. Sinus and nasal congestion is improved. Chest congestion is also improved. The white cell count is at 15.1. Influenza screen was negative. Blood cultures also negative. On 10/10/2017 patient seen in follow-up on medical surgical floor. She remains congested, still has congested productive cough, with production of yellow sputum. Lung sounds are positive for diffuse scattered rhonchi. Patient is complaining of bilateral rib cage tenderness exacerbated by severe coughing spells. But denies any fever or chills, denies any hemoptysis. Today's chest x -ray was reviewed, and showed mild cardiomegaly with hypoventilatory changes, and patchy bibasilar areas of atelectasis or early infiltrates in the more increased in appearance. Patient is afebrile. Today's lab work shows WBC of 19.8, hemoglobin of 13.8, electrodes are within normal limits, B1 is 37, creatinine 0.78. Patient is on IV steroids, empiric antibiotics with Levaquin, nebulized treatments, and Tessalon Perles. We'll continue with current medical treatment Objective - Vital Signs Vital signs: Vital Signs Temp 98.1 F 10/10/17 05:50 Pulse 92 10/10/17 10:06 Resp 16 10/10/17 05:50 BP 149/82 10/10/17 05:50 Pulse Ox 94 L 10/10/17 05:50 Intake & Output 10/09/17 10/10/17 10/10/17 18:59 06:59 18:59 Intake Total 580 Balance 580 Weight 78.018 kg Intake: Intake, IV Titration 100 Amount Levofloxacin 500Mg-D5w 100 Pmx 500 mg In Dextrose/ Water 1 100ml.bag @ 100 mls/hr IVPB Q24H [facility] Rx#: [id number] Oral 480 Other: Voiding Method Toilet Toilet # Voids 1 1 2 # Bowel Movements 2 0 - Exam GENERAL EXAM: Alert, pleasant, 62-year-old white female comfortable in no apparent distress. HEAD: Normocephalic/atraumatic. EYES: Normal reaction of pupils, equal size. Conjunctiva pink, sclera white. NOSE: Clear with pink turbinates. THROAT: No erythema or exudates. NECK: No masses, no JVD, no thyroid enlargement, no adenopathy. CHEST: No chest wall deformity. Symmetrical expansion. LUNGS: Diffuse scattered rhonchi auscultated bilaterally, patient has a bronchospastic congested cough, with occasional production of yellow sputum CVS: Regular rate and rhythm, normal S1 and S2, no gallops, no murmurs, no rubs ABDOMEN: Soft, nontender. No hepatosplenomegaly, normal bowel sounds, no guarding or rigidity. EXTREMITIES: No clubbing, no edema, no cyanosis, 2+ pulses and upper and lower extremities. MUSCULOSKELETAL: Muscle strength and tone normal. SPINE: No scoliosis or deformity SKIN: No rashes CENTRAL NERVOUS SYSTEM: Alert and oriented -3. No focal deficits, tone is normal in all 4 extremities. PSYCHIATRIC: Alert and oriented -3. Appropriate affect. Intact judgment and insight. - Labs CBC & Chem 7: 10/10/17 07:53 10/10/17 07:53 Labs: Abnormal Lab Results - Last 24 Hours (Table) 10/09/17 10/09/17 10/10/17 Range/Units 17:04 21:08 06:54 WBC (3.8-10.6) k/uL Neutrophils # (1.3-7.7) k/uL Lymphocytes # (1.0-4.8) k/uL BUN (7-17) mg/dL Glucose (74-99) mg/dL POC Glucose (mg/dL) 121 H 153 H 177 H (75-99) mg/dL 10/10/17 10/10/17 Range/Units 07:53 07:53 WBC 19.8 H (3.8-10.6) k/uL Neutrophils # 18.4 H (1.3-7.7) k/uL Lymphocytes # 0.6 L (1.0-4.8) k/uL BUN 37 H (7-17) mg/dL Glucose 106 H (74-99) mg/dL POC Glucose (mg/dL) (75-99) mg/dL Microbiology - Last 24 Hours (Table) 10/07/17 12:15 Blood Culture - Preliminary Blood No Growth after 48 hours Assessment and Plan Plan: Assessment: 1 acute COPD exacerbation, improving compared to yesterday and the patient is less short of breath over spastic and wheezy. 2 shortness of breath secondary to above 3 limited bibasilar infiltrates/atelectasis. Pneumonia is doubtful as the patient has been treated in outpatient basis with Levaquin. 4 hypertension 5 hyperlipidemia 6 obesity 7 hypothyroidism Plan Continue IV steroids, antibiotics, and bronchodilators. Continue Tessalon Perles, patient is still having persistent congested cough. Continue to follow. I performed a history & physical examination of the patient and discussed their management with my nurse practitioner, Paloma Campbell. I reviewed the nurse practitioner's note and agree with the documented findings and plan of care. Lung sounds are diffuse scattered rhonchi, harsh bronchospastic congested cough. The findings and the impression was discussed with the patient. I attest to the documentation by the nurse practitioner. Time with Patient: Less than 30
[2017-10-10] MEDS: IPRATROPIUM-ALBUTEROL 3 ML NEB INHALATION SCH ×3 (16:09→23:45)
[2017-10-10 17:15] LABS: Glucose,Whole Blood 106 mg/dL (75-99)
[2017-10-10 21:01] LABS: Glucose,Whole Blood 190 mg/dL (75-99)
[2017-10-10] MEDS: AMITRIPTYLINE HCL 50 MG TAB PO SCH (22:38)
[2017-10-11] MEDS: methylPREDNISolone SOD SUCCI 125 MG/2 ML VIAL IV SCH ×3 (01:05→12:25)
[2017-10-11] MEDS: IPRATROPIUM-ALBUTEROL 3 ML NEB INHALATION SCH ×5 (04:19→19:38)
[2017-10-11] MEDS: LEVOTHYROXINE 100 MCG TAB PO SCH (06:43)
[2017-10-11 07:20] LABS: Glucose,Whole Blood 149 mg/dL (75-99)
[2017-10-11] MEDS: BENZONATATE 100 MG CAP PO SCH ×3 (07:53→21:28)
[2017-10-11] MEDS: EZETIMIBE 10 MG TAB PO SCH (07:54)
[2017-10-11] MEDS: ENOXAPARIN 40 MG/0.4 ML SYRINGE SQ SCH (07:54)
[2017-10-11] MEDS: INSULIN ASPART 100 UNIT/ML 1 ML 10 ML VIAL SQ SCH ×4 (07:54→21:29)
[2017-10-11] MEDS: MONTELUKAST 10 MG TAB PO SCH (07:54)
[2017-10-11] MEDS: LISINOPRIL-HCTZ 20-25 MG 1 EACH TAB PO SCH (07:54)
[2017-10-11 11:46] LABS: Glucose,Whole Blood 147 mg/dL (75-99)
[2017-10-11] MEDS: LEVOFLOXACIN 500 MG TAB PO SCH (12:25)
--- NOTE | 2017-10-11 13:19 | P.PN ---
Subjective Patient is feeling better today. Her cough is improved. No events overnight. Objective - Vital Signs Vital signs: Vital Signs Temp 98.5 F 10/11/17 07:00 Pulse 74 10/11/17 11:15 Resp 16 10/11/17 08:00 BP 115/69 10/11/17 07:00 Pulse Ox 92 L 10/11/17 07:00 Intake & Output 10/10/17 10/11/17 10/11/17 18:59 06:59 18:59 Intake Total 600 Balance 600 Intake: Oral 600 Other: Voiding Method Toilet Toilet # Voids 1 2 - Exam General: The patient is awake and alert, in no distress Eye: there is normal conjunctiva bilaterally. Neck: The neck is supple, there is no JVD. Cardiovascular: Normal S1-S2, no S3-S4, no murmurs. Respiratory: Lungs are Gstill diminished but a lot better compared to yesterday. No wheezing. astrointestinal: Abdomen is soft, nontender Musculoskeletal: There is no pedal edema. Neurological:. Speech is normal. Skin: Skin is warm and dry - Labs CBC & Chem 7: 10/10/17 07:53 10/10/17 07:53 Labs: Abnormal Lab Results - Last 24 Hours (Table) 10/10/17 10/10/17 10/11/17 Range/Units 17:11 20:59 07:10 POC Glucose (mg/dL) 106 H 190 H 149 H (75-99) mg/dL 10/11/17 Range/Units 11:28 POC Glucose (mg/dL) 147 H (75-99) mg/dL Microbiology - Last 24 Hours (Table) 10/07/17 12:15 Blood Culture - Preliminary Blood No Growth after 72 hours Assessment and Plan Assessment: #1 acute exacerbation of chronic obstructive pulmonary disease #2 bilateral infiltrate: May be atelectasis. Patient recently finished antibiotic course for pneumonia #3 underlying history of hypertension #4 underlying history of hypothyroidism #5 hyperglycemia due to steroid use started on insulin sliding scale #5 underlying history of hyperlipidemia Switch steroids to oral prednisone. Continue bronchodilator. Encouraged ambulation. Anticipate discharge within the next day or 2.
--- NOTE | 2017-10-11 14:25 | P.PN ---
Subjective Progress Note Date: 10/11/17 Principal diagnosis: Acute COPD exacerbation, improving. Limited bibasilar infiltrates/atelectasis, doubt pneumonia This 62-year-old female patient was seen in consultation yesterday and she has symptoms of an acute COPD exacerbation taken bronchitis. She was quite bronchospastic and wheezy and she was unable to speak without having to cough. She was unable to bring, sputum. No hemoptysis or pleurisy. She remains afebrile. She continues to bronchodilators and steroids and she is improved compared to yesterday. She is able to speak of longer sentences. No chest pain. Sinus and nasal congestion is improved. Chest congestion is also improved. The white cell count is at 15.1. Influenza screen was negative. Blood cultures also negative. On 10/10/2017 patient seen in follow-up on medical surgical floor. She remains congested, still has congested productive cough, with production of yellow sputum. Lung sounds are positive for diffuse scattered rhonchi. Patient is complaining of bilateral rib cage tenderness exacerbated by severe coughing spells. But denies any fever or chills, denies any hemoptysis. Today's chest x -ray was reviewed, and showed mild cardiomegaly with hypoventilatory changes, and patchy bibasilar areas of atelectasis or early infiltrates in the more increased in appearance. Patient is afebrile. Today's lab work shows WBC of 19.8, hemoglobin of 13.8, electrodes are within normal limits, B1 is 37, creatinine 0.78. Patient is on IV steroids, empiric antibiotics with Levaquin, nebulized treatments, and Tessalon Perles. We'll continue with current medical treatment On 10/11/2017 patient seen in follow-up. Still remains quite congested and wheezy, but her cough is subsiding, and the patient is now able to bring up some sputum. Still very dyspneic with any exertion. He has been afebrile, she is on room air with O2 sat 92%, lung sounds are positive for a few scattered rhonchi, diminished breath sounds bilaterally. No new labs or chest x-rays today, patient being treated for an acute COPD exacerbation, and is currently on empiric antibiotics in the form of Levaquin, her IV steroids have been switched to prednisone and she is on Tessalon Perles for her persistent cough. Objective - Vital Signs Vital signs: Vital Signs Temp 98.5 F 10/11/17 07:00 Pulse 74 10/11/17 11:15 Resp 16 10/11/17 08:00 BP 115/69 10/11/17 07:00 Pulse Ox 92 L 10/11/17 07:00 Intake & Output 10/10/17 10/11/17 10/11/17 18:59 06:59 18:59 Intake Total 600 Balance 600 Intake: Oral 600 Other: Voiding Method Toilet Toilet # Voids 1 2 - Exam GENERAL EXAM: Alert, pleasant, 62-year-old white female comfortable in no apparent distress. HEAD: Normocephalic/atraumatic. EYES: Normal reaction of pupils, equal size. Conjunctiva pink, sclera white. NOSE: Clear with pink turbinates. THROAT: No erythema or exudates. NECK: No masses, no JVD, no thyroid enlargement, no adenopathy. CHEST: No chest wall deformity. Symmetrical expansion. LUNGS: Diffuse scattered rhonchi auscultated bilaterally, patient has a bronchospastic congested cough, with occasional production of yellow sputum CVS: Regular rate and rhythm, normal S1 and S2, no gallops, no murmurs, no rubs ABDOMEN: Soft, nontender. No hepatosplenomegaly, normal bowel sounds, no guarding or rigidity. EXTREMITIES: No clubbing, no edema, no cyanosis, 2+ pulses and upper and lower extremities. MUSCULOSKELETAL: Muscle strength and tone normal. SPINE: No scoliosis or deformity SKIN: No rashes CENTRAL NERVOUS SYSTEM: Alert and oriented -3. No focal deficits, tone is normal in all 4 extremities. PSYCHIATRIC: Alert and oriented -3. Appropriate affect. Intact judgment and insight. - Labs CBC & Chem 7: 10/10/17 07:53 10/10/17 07:53 Labs: Abnormal Lab Results - Last 24 Hours (Table) 10/10/17 10/10/17 10/11/17 Range/Units 17:11 20:59 07:10 POC Glucose (mg/dL) 106 H 190 H 149 H (75-99) mg/dL 10/11/17 Range/Units 11:28 POC Glucose (mg/dL) 147 H (75-99) mg/dL Microbiology - Last 24 Hours (Table) 10/07/17 12:15 Blood Culture - Preliminary Blood No Growth after 72 hours Assessment and Plan Plan: Assessment: 1 acute COPD exacerbation, improving compared to yesterday and the patient is less short of breath over spastic and wheezy. 2 shortness of breath secondary to above 3 limited bibasilar infiltrates/atelectasis. Pneumonia is doubtful as the patient has been treated in outpatient basis with Levaquin. 4 hypertension 5 hyperlipidemia 6 obesity 7 hypothyroidism Plan Patient is improving slowly, will increase activity as tolerated, continue current medical treatment, continue Levaquin, IV steroids have been transitioned to oral prednisone, continue nebulized treatments. Anticipate further improvement, continue to follow. I performed a history & physical examination of the patient and discussed their management with my nurse practitioner, Paloma Campbell. I reviewed the nurse practitioner's note and agree with the documented findings and plan of care. Lung sounds are diffuse scattered rhonchi, harsh bronchospastic congested cough. The findings and the impression was discussed with the patient. I attest to the documentation by the nurse practitioner. Time with Patient: Less than 30
[2017-10-11] MEDS: DIAZEPAM 5 MG TAB PO PRN ×2 (15:45→21:29)
[2017-10-11 17:24] LABS: Glucose,Whole Blood 138 mg/dL (75-99)
[2017-10-11] MEDS: AMITRIPTYLINE HCL 50 MG TAB PO SCH (20:03)
[2017-10-11 21:14] LABS: Glucose,Whole Blood 195 mg/dL (75-99)
[2017-10-12] MEDS: IPRATROPIUM-ALBUTEROL 3 ML NEB INHALATION SCH ×5 (00:21→15:15)
[2017-10-12] MEDS: LEVOTHYROXINE 100 MCG TAB PO SCH (06:27)
[2017-10-12 07:41] LABS: Glucose,Whole Blood 110 mg/dL (75-99)
[2017-10-12] MEDS: INSULIN ASPART 100 UNIT/ML 1 ML 10 ML VIAL SQ SCH ×2 (08:14→11:48)
[2017-10-12] MEDS: MONTELUKAST 10 MG TAB PO SCH (08:55)
[2017-10-12] MEDS: ENOXAPARIN 40 MG/0.4 ML SYRINGE SQ SCH (08:55)
[2017-10-12] MEDS: EZETIMIBE 10 MG TAB PO SCH (08:55)
[2017-10-12] MEDS: BENZONATATE 100 MG CAP PO SCH (08:55)
[2017-10-12] MEDS: LISINOPRIL-HCTZ 20-25 MG 1 EACH TAB PO SCH (08:56)
[2017-10-12] MEDS ORDERED: predniSONE 20 MG TAB PO SCH (09:00)
--- NOTE | 2017-10-12 10:41 | P.PN ---
Subjective Progress Note Date: 10/12/17 Principal diagnosis: Acute COPD exacerbation, improving. Limited bibasilar infiltrates/atelectasis, doubt pneumonia This 62-year-old female patient was seen in consultation yesterday and she has symptoms of an acute COPD exacerbation taken bronchitis. She was quite bronchospastic and wheezy and she was unable to speak without having to cough. She was unable to bring, sputum. No hemoptysis or pleurisy. She remains afebrile. She continues to bronchodilators and steroids and she is improved compared to yesterday. She is able to speak of longer sentences. No chest pain. Sinus and nasal congestion is improved. Chest congestion is also improved. The white cell count is at 15.1. Influenza screen was negative. Blood cultures also negative. On 10/10/2017 patient seen in follow-up on medical surgical floor. She remains congested, still has congested productive cough, with production of yellow sputum. Lung sounds are positive for diffuse scattered rhonchi. Patient is complaining of bilateral rib cage tenderness exacerbated by severe coughing spells. But denies any fever or chills, denies any hemoptysis. Today's chest x -ray was reviewed, and showed mild cardiomegaly with hypoventilatory changes, and patchy bibasilar areas of atelectasis or early infiltrates in the more increased in appearance. Patient is afebrile. Today's lab work shows WBC of 19.8, hemoglobin of 13.8, electrodes are within normal limits, B1 is 37, creatinine 0.78. Patient is on IV steroids, empiric antibiotics with Levaquin, nebulized treatments, and Tessalon Perles. We'll continue with current medical treatment On 10/11/2017 patient seen in follow-up. Still remains quite congested and wheezy, but her cough is subsiding, and the patient is now able to bring up some sputum. Still very dyspneic with any exertion. He has been afebrile, she is on room air with O2 sat 92%, lung sounds are positive for a few scattered rhonchi, diminished breath sounds bilaterally. No new labs or chest x-rays today, patient being treated for an acute COPD exacerbation, and is currently on empiric antibiotics in the form of Levaquin, her IV steroids have been switched to prednisone and she is on Tessalon Perles for her persistent cough. On 10/12/2017 patient seen in follow-up. Still dyspneic at rest, becomes more dyspneic with exertion, and the patient states she becomes lightheaded as well. She continues on Levaquin, bronchodilators, and her IV steroids were transitioned to oral redness own yesterday. Receiving Tessalon Perles for her persistent cough, her cough was still very bronchospastic, congested, and patient still has trouble expectorating secretions. Vital signs are stable, she is afebrile, she is currently on room air. We will add Robitussin today, increase activity as tolerated Objective - Vital Signs Vital signs: Vital Signs Temp 98 F 10/12/17 07:00 Pulse 88 10/12/17 08:23 Resp 16 10/12/17 07:00 BP 132/70 10/12/17 07:00 Pulse Ox 96 10/12/17 07:00 Intake & Output 10/11/17 10/12/17 10/12/17 18:59 06:59 18:59 Other: Voiding Method Toilet # Voids 3 1 # Bowel Movements 1 - Exam GENERAL EXAM: Alert, pleasant, 62-year-old white female comfortable in no apparent distress. HEAD: Normocephalic/atraumatic. EYES: Normal reaction of pupils, equal size. Conjunctiva pink, sclera white. NOSE: Clear with pink turbinates. THROAT: No erythema or exudates. NECK: No masses, no JVD, no thyroid enlargement, no adenopathy. CHEST: No chest wall deformity. Symmetrical expansion. LUNGS: A few rhonchi auscultated bilaterally, patient has a bronchospastic congested cough, with occasional production of yellow sputum CVS: Regular rate and rhythm, normal S1 and S2, no gallops, no murmurs, no rubs ABDOMEN: Soft, nontender. No hepatosplenomegaly, normal bowel sounds, no guarding or rigidity. EXTREMITIES: No clubbing, no edema, no cyanosis, 2+ pulses and upper and lower extremities. MUSCULOSKELETAL: Muscle strength and tone normal. SPINE: No scoliosis or deformity SKIN: No rashes CENTRAL NERVOUS SYSTEM: Alert and oriented -3. No focal deficits, tone is normal in all 4 extremities. PSYCHIATRIC: Alert and oriented -3. Appropriate affect. Intact judgment and insight. - Labs CBC & Chem 7: 10/10/17 07:53 10/10/17 07:53 Labs: Abnormal Lab Results - Last 24 Hours (Table) 10/11/17 10/11/17 10/11/17 Range/Units 11:28 17:21 21:12 POC Glucose (mg/dL) 147 H 138 H 195 H (75-99) mg/dL 10/12/17 Range/Units 07:25 POC Glucose (mg/dL) 110 H (75-99) mg/dL Microbiology - Last 24 Hours (Table) 10/07/17 12:15 Blood Culture - Preliminary Blood No Growth after 96 hours Assessment and Plan Plan: Assessment: 1 acute COPD exacerbation, improving 2 shortness of breath secondary to above 3 limited bibasilar infiltrates/atelectasis. Pneumonia is doubtful as the patient has been treated in outpatient basis with Levaquin. 4 hypertension 5 hyperlipidemia 6 obesity 7 hypothyroidism Plan Patient still complains of dyspnea, and persistent bronchospastic cough. We will add Robitussin. Continue with the rest of the medical treatments, Levaquin , oral steroids, nebulized treatments. Increase activity as tolerated, patient potentially could be discharged home today if she improves I performed a history & physical examination of the patient and discussed their management with my nurse practitioner, Paloma Campbell. I reviewed the nurse practitioner's note and agree with the documented findings and plan of care. Lung sounds are a few scattered rhonchi, bronchospastic congested cough. The findings and the impression was discussed with the patient. I attest to the documentation by the nurse practitioner. Time with Patient: Less than 30
[2017-10-12] MEDS ORDERED: guaiFENesin-DM 100-10MG/5ML 10 ML CUP PO SCH (11:30)
[2017-10-12 12:22] LABS: Glucose,Whole Blood 115 mg/dL (75-99)
--- NOTE | 2017-10-12 13:44 | P.DS ---
Providers Date of admission: 10/07/17 15:55 Expected date of discharge: 10/12/17 Attending physician: Deana Baker Consults: 10/07/17 14:24 Consult Physician Stat Consulting Provider: Priya Rodgers Consult Reason/Comments: COPD exacerbation Do you want consulting provider notified?: Yes Primary care physician: Tova Mcghee [facility] Course: #1 acute exacerbation of chronic obstructive pulmonary disease: Improved with bronchodilators and IV steroids. Plan to finish steroid course with prednisone orally at home. #2 bilateral infiltrate: May be atelectasis. Patient recently finished antibiotic course for pneumonia #3 underlying history of hypertension: Blood pressure well-controlled #4 underlying history of hypothyroidism #5 hyperglycemia due to steroid use started on insulin sliding scale during the hospitalization. #5 underlying history of hyperlipidemia Patient Condition at Discharge: Fair Plan - Discharge Summary Discharge Rx Participant: No New Discharge Prescriptions: New guaiFENesin [Mucinex] 1,200 mg PO BID #14 tbmp.12hr predniSONE 40 mg PO DAILY #10 tab Continue Levothyroxine Sodium [Synthroid] 100 mcg PO DAILY Lisinopril/Hydrochlorothiazide [Zestoretic 20-25] 1 tab PO DAILY Montelukast [Singulair] 10 mg PO DAILY Ezetimibe [Zetia] 10 mg PO DAILY Albuterol Nebulized [Ventolin Nebulized] 2.5 mg INHALATION RT-Q6H PRN PRN Reason: Shortness Of Breath Discharge Medication List Levothyroxine Sodium [Synthroid] 100 mcg PO DAILY 05/19/15 [History] Lisinopril/Hydrochlorothiazide [Zestoretic 20-25] 1 tab PO DAILY 09/20/15 [ History] Ezetimibe [Zetia] 10 mg PO DAILY 08/18/16 [History] Montelukast [Singulair] 10 mg PO DAILY 08/18/16 [History] Albuterol Nebulized [Ventolin Nebulized] 2.5 mg INHALATION RT-Q6H PRN 10/07/17 [ History] guaiFENesin [Mucinex] 1,200 mg PO BID #14 tbmp.12hr 10/12/17 [Rx] predniSONE 40 mg PO DAILY #10 tab 10/12/17 [Rx] Follow up Appointment(s)/Referral(s): Tova Mcghee MD [Primary Care Provider] - 1-2 days Patient Instructions/Handouts: Pneumonia (DC) Discharge Disposition: HOME SELF-CARE
[2017-10-12] MEDS: DIAZEPAM 5 MG TAB PO PRN (14:13)
[2017-10-12] MEDS: LEVOFLOXACIN 500 MG TAB PO SCH (14:14)
[2017-10-12 14:32] VITALS: BP 112/65; PULSE 89; RESP 18; TEMP 98.7
== END 2017-10-12 15:20 | disposition home or self-care (01) | DRG 191 ==
LOC: EC 11:44 → 4MS4W 15:55
PROVIDERS: ADMIT Internal Medicine; ATTEND Internal Medicine
DX: J44.1 Chronic obstructive pulmonary disease with (acute) exacerbation (principal); J98.11 Atelectasis; E03.9 Hypothyroidism, unspecified; I10 Essential (primary) hypertension; R73.9 Hyperglycemia, unspecified; E78.5 Hyperlipidemia, unspecified; E66.9 Obesity, unspecified; K21.9 Gastro-esophageal reflux disease without esophagitis; T38.0X5A Adverse effect of glucocorticoids and synthetic analogues, initial encounter; Z68.32 Body mass index [BMI] 32.0-32.9, adult; Z79.899 Other long term (current) drug therapy; Z82.49 Family history of ischemic heart disease and other diseases of the circulatory system; Z82.5 Family history of asthma and other chronic lower respiratory diseases; Z88.6 Allergy status to analgesic agent; Z88.1 Allergy status to other antibiotic agents; Z88.0 Allergy status to penicillin; Z88.8 Allergy status to other drugs, medicaments and biological substances; Z87.891 Personal history of nicotine dependence; Z80.9 Family history of malignant neoplasm, unspecified; Z90.89 Acquired absence of other organs; Z90.710 Acquired absence of both cervix and uterus; Z98.1 Arthrodesis status
CPT/HCPCS: 36415; 71046; 80053; 80061; 82550; 82553; 83036; 83605; 83735; 84484; 85025; 85610; 85730; 87040; 87502; 93005; 94640; 94760; 96374; 96375; 99285

== ENCOUNTER 2017-11-11 07:47 | Day surgery (SDC) | payer OTHER ==
[2017-11-09 15:13] VITALS: BMI 32.1
[~2017-11-11 07:47] MED LIST changes: -BACITRACIN 50,000 UNIT, POLYMYXIN B 500,000 UNIT in SODIUM CHLORIDE 0.9% IRRIGATIO 1,00... IRRIGATION ONE; -DEXAMETHASONE SOD PHOSPHATE 10 MG/ML 1 ML VIAL IV ONE; -HYDROmorphone 1 MG/ML 1 ML SYRINGE IVP PRN; -ONDANSETRON 4 MG/2 ML VIAL IVP ONE; -ceFAZolin 2 GM in SODIUM CHLORIDE 0.9% 100 ML IVPB ONE
[2017-11-11 08:50] VITALS: RESP 16; TEMP 98.3
[2017-11-11] MEDS ORDERED: ONDANSETRON 4 MG/2 ML VIAL IVP ONE (09:02)
[2017-11-11] MEDS ORDERED: fentaNYL (PF) 50 MCG/ML 2 ML AMP IV ONE (09:02)
[2017-11-11] MEDS ORDERED: fentaNYL (PF) 50 MCG/ML 2 ML AMP ONE (09:07)
[2017-11-11] MEDS ORDERED: PROPOFOL 10 MG/ML 20 ML VIAL IV ONE (09:07)
[2017-11-11] MEDS ORDERED: MIDAZOLAM 2 MG/2 ML VIAL ONE (09:07)
--- NOTE | 2017-11-11 09:24 | P.PCN ---
Date of Procedure: 11/11/17 Procedure(s) Performed: BRIEF HISTORY: Patient is a 62-year-old pleasant white female, scheduled for an elective colonoscopy as a part of screening for colorectal neoplasia. PROCEDURE PERFORMED: Colonoscopy. PREOPERATIVE DIAGNOSIS: Screening for colon cancer. IV sedation per Anesthesia. PROCEDURE: After informed consent was obtained, the patient, was brought into the endoscopy unit. IV sedation was administered by Anesthesia under continuous monitoring. Digital rectal examination was normal. Initially the Olympus CF- 160 flexible video colonoscope was then inserted in the rectum, gradually advanced into the cecum without any difficulty. Careful examination was performed as the scope was gradually being withdrawn. Ileocecal valve and the appendiceal orifice were visualized and appeared normal. Prep was excellent. Mucosa of the cecum, ascending colon, transverse colon, descending colon, sigmoid colon, and rectum appeared normal. Scattered sigmoid diverticulosis. Retroflexion was performed in the rectum and no lesions were seen. The patient tolerated the procedure well. IMPRESSION: Normal-appearing colon from rectum to cecum with no evidence of colorectal neoplasia. Scattered sigmoid diverticulosis. RECOMMENDATIONS: Findings of this examination were discussed with the patient as well as her family. She was advised to have a repeat screening colonoscopy in 10 years..
[2017-11-11] MEDS ORDERED: traMADol 50 MG TAB PO ONE (10:10)
[2017-11-11 10:16] VITALS: BP 118/80; PULSE 71
== END 2017-11-11 10:47 | disposition home or self-care (01) ==
LOC: ORWHC2ENDO 07:47
PROVIDERS: ATTEND Internal Medicine Gastroenterology
DX: Z12.11 Encounter for screening for malignant neoplasm of colon (principal); K57.30 Diverticulosis of large intestine without perforation or abscess without bleeding; I10 Essential (primary) hypertension; E78.5 Hyperlipidemia, unspecified; Z79.899 Other long term (current) drug therapy
CPT/HCPCS: 45378; J2250; J2405; J3010; J2704

== ENCOUNTER 2018-01-06 19:08 | Observation (INO) | payer OTHER ==
[2018-01-06] MEDS ORDERED: ASPIRIN 81 MG PO STA (20:08)
[2018-01-06] MEDS ORDERED: SODIUM CHLORIDE 0.9% 1,000 ML IV STA (20:08)
[2018-01-06 20:21] LABS: Basophils # (A) 0.1 k/uL (0-0.2); Basophils % (A) 1 %; Eosinophils # (A) 0.3 k/uL (0-0.7); Eosinophils % (A) 4 %; HCT 40.1 % (34.0-46.0); Lymphocytes # (A) 1.9 k/uL (1.0-4.8); Lymphocytes % (A) 23 %; MCH 26.6 pg (25.0-35.0); MCHC 32.5 g/dL (31.0-37.0); MCV 81.7 fL (80.0-100.0); Mean Platelet Volume 7.8; Monocytes # (A) 0.8 k/uL (0-1.0); Monocytes % (A) 10 %; Neutrophils # (A) 5.1 k/uL (1.3-7.7); Neutrophils % (A) 60 %; Platelet Count 206 k/uL (150-450); RDW 14.5 % (11.5-15.5); WBC 8.5 k/uL (3.8-10.6)
[2018-01-06 20:31] LABS: Creatine Kinase 51 U/L (30-135)
[2018-01-06 20:33] LABS: ALT 33 U/L (9-52); AST 21 U/L (14-36); Albumin 4.1 g/dL (3.5-5.0); Alkaline Phosphatase 91 U/L (38-126); Anion Gap 8 mmol/L; Blood Urea Nitrogen 27 mg/dL (7-17); Calcium 9.6 mg/dL (8.4-10.2); Carbon Dioxide 27 mmol/L (22-30); Chloride 108 mmol/L (98-107); Glucose 121 mg/dL (74-99); Magnesium 1.9 mg/dL (1.6-2.3); Sodium 143 mmol/L (137-145); Total Bilirubin 0.6 mg/dL (0.2-1.3); Total Protein 6.5 g/dL (6.3-8.2)
[2018-01-06 20:41] LABS: Prothrombin Time 9.8 sec (9.0-12.0)
[2018-01-06 20:43] LABS: Creatine Kinase MB 0.5 ng/mL (0.0-2.4); Troponin I <0.012 ng/mL (0.000-0.034)
[2018-01-06 20:44] LABS: Partial Thromboplastin Time 21.7 sec (22.0-30.0)
[2018-01-06] MEDS ORDERED: IPRATROPIUM-ALBUTEROL 3 ML NEB INHALATION STA (20:52)
[2018-01-06] MEDS ORDERED: NALOXONE 0.4 MG/ML 1 ML VIAL IV PRN (21:02)
[2018-01-06] MEDS ORDERED: ACETAMINOPHEN TAB 325 MG TAB PO PRN (21:02)
--- NOTE | 2018-01-06 21:02 | ED ---
General Adult HPI - General Chief complaint: Arrhythmia/Palpitations Stated complaint: chest pain Time Seen by Provider: 01/06/18 19:49 Source: patient, family Mode of arrival: wheelchair Limitations: no limitations - History of Present Illness Initial comments: Keiry is a 62-year-old female with past medical history of COPD as well as a history that she has been told she has had a heart attack in the past so she did not follow closely with cardiology. Patient presents the emergency department today for evaluation of palpitations and chest pressure. She reports approximately 7 years ago she had an episode of chest pain radiating to her left arm and jaw, that time she was doubled over in pain and experiencing palpitations. She reports that she followed up with her physician approximately one week after this event was told that she had a heart attack. She does not follow closely with cardiology. Patient reports that yesterday she began experiencing palpitations and intermittent chest pressure. She reports that she is having a feeling that her heart is racing or skipping beats and at times having episodes of chest pressure. The racing or skipping beats occurs nearly constantly, she cannot identify any exacerbating or relieving factors. She reports that the pressure in her chest occurs intermittently, it occurs at rest as well as with activity. She cannot identify any exacerbating factors. She reports that the episodes of squeezing her chest lasts for seconds to minutes and then resolved with rest. Patient is a former smoker, she has hypertension, hyperlipidemia as well as obesity. She is a family history of early cardiac disease and was told that her father of a heart attack at the age of 28. Does have a history of COPD but does not feel like she is wheezing or have any shortness of breath. She denies any crushing chest pain, any diaphoresis or lightheadedness. She denies any shortness of breath. She denies any other acute illness including fevers, chills, nausea, vomiting. Changes in her medications. - Related Data Home Medications Medication Instructions Recorded Confirmed Levothyroxine Sodium [Synthroid] 100 mcg PO DAILY 05/19/15 01/06/18 Lisinopril/Hydrochlorothiazide 1 tab PO DAILY 09/20/15 01/06/18 [Zestoretic 20-25] Montelukast [Singulair] 10 mg PO DAILY 08/18/16 01/06/18 Albuterol Nebulized [Ventolin 2.5 mg INHALATION RT-Q6H PRN 10/07/17 01/06/18 Nebulized] Simvastatin [Zocor] 40 mg PO HS 11/09/17 01/06/18 Beclomethasone Dipropionate [Qvar 2 puff INHALATION RT-BID 01/06/18 01/06/18 40 mcg] Multivit-Min/FA/Lycopen/Lutein 1 tab PO DAILY 01/06/18 01/06/18 [Centrum Silver Tablet] Allergies Allergy/AdvReac Type Severity Reaction Status Date / Time acetaminophen Allergy Rash/Hives Verified 01/06/18 20:10 [From Darvocet-N] aspirin Allergy Rash/Hives Verified 01/06/18 20:10 [From Empirin W/Codeine] azithromycin Allergy Rash/Hives Verified 01/06/18 20:10 baclofen Allergy Rash/Hives Verified 01/06/18 20:10 butalbital [From Fioricet] Allergy Rash/Hives Verified 01/06/18 20:10 caffeine [From Fioricet] Allergy Rash/Hives Verified 01/06/18 20:10 codeine Allergy Rash/Hives Verified 01/06/18 20:10 codeine phosphate Allergy Rash/Hives Verified 01/06/18 20:10 [From Empirin W/Codeine] cyclobenzaprine HCl Allergy Rash/Hives Verified 01/06/18 20:10 [From Flexeril] etodolac [From Lodine] Allergy Rash/Hives Verified 01/06/18 20:10 ezetimibe [From Vytorin] Allergy Rash/Hives Verified 01/06/18 20:10 flurazepam HCl [From Dalmane] Allergy Rash/Hives Verified 01/06/18 20:10 hydrocodone [From [place]] Allergy Rash/Hives Verified 01/06/18 20:10 hydrocodone bitartrate Allergy Rash/Hives Verified 01/06/18 20:10 [From Vicodin] ketorolac tromethamine Allergy Rash/Hives Verified 01/06/18 20:10 [From Toradol] meperidine HCl [From Demerol] Allergy Rash/Hives Verified 01/06/18 20:10 morphine Allergy Rash/Hives Verified 01/06/18 20:10 Morpholine Analogues Allergy Rash/Hives Verified 01/06/18 20:10 orphenadrine citrate Allergy Rash/Hives Verified 01/06/18 20:10 [From Norflex] Penicillins Allergy Rash/Hives Verified 01/06/18 20:10 pentazocine lactate Allergy Rash/Hives Verified 01/06/18 20:10 [From Talwin] propoxyphene HCl Allergy Rash/Hives Verified 01/06/18 20:10 [From Darvon] propoxyphene napsylate Allergy Rash/Hives Verified 01/06/18 20:10 [From Darvocet-N] simvastatin [From Vytorin] Allergy Rash/Hives Verified 01/06/18 20:10 Review of Systems ROS Statement: Those systems with pertinent positive or pertinent negative responses have been documented in the HPI. ROS Other: All systems not noted in ROS Statement are negative. Constitutional: Denies: fever ENT: Denies: throat pain Respiratory: Reports: cough (Chronic) Cardiovascular: Reports: chest pain, palpitations, dyspnea on exertion Endocrine: Denies: fatigue Gastrointestinal: Denies: abdominal pain, nausea, vomiting Genitourinary: Reports: frequency (Due to being on diuretic). Denies: urgency Musculoskeletal: Denies: back pain Skin: Denies: rash, lesions Neurological: Denies: headache, weakness Psychiatric: Denies: anxiety, depression Hematological/Lymphatic: Denies: easy bleeding, easy bruising Past Medical History Past Medical History: COPD, GERD/Reflux, Hyperlipidemia, Hypertension, Pneumonia , Thyroid Disorder Additional Past Medical History / Comment(s): COPD, hypertension, hyperlipidemia , hypothyroidism, spondylolisthesis L4-L5, spinal stenosis L4-L5, radiculopathy, History of Any Multi-Drug Resistant Organisms: None Reported Past Surgical History: Appendectomy, Section, Hysterectomy, Orthopedic Surgery, Tonsillectomy Additional Past Surgical History / Comment(s): 05-28-15 LAMINECTOMY AND DECOMPRESSION L4-5, PORFIRIO BUNIONECTOMY(WOUND INFECTION HARDWARE REMVED AND I&D) THEN HAD REVISON LAMINECTOMY/FUSION L4-5, RT CARPAL TUNNEL, 3 C-SECTIONS. Past Anesthesia/Blood Transfusion Reactions: Motion Sickness, Postoperative Nausea & Vomiting (PONV) Additional Past Anesthesia/Blood Transfusion Reaction / Comment(s): CLAUSTERPHOBIA Past Psychological History: No Psychological Hx Reported Smoking Status: Former smoker Past Alcohol Use History: None Reported Past Drug Use History: None Reported - Past Family History Sister(s) Family Medical History: Cancer Mother Family Medical History: COPD Additional Family Medical History / Comment(s): EMPHYSEMA Father Family Medical History: Myocardial Infarction (MT) General Exam Limitations: no limitations General appearance: alert, in no apparent distress Head exam: Present: atraumatic, normocephalic Eye exam: Present: normal appearance, PERRL ENT exam: Present: normal exam Neck exam: Present: full ROM Respiratory exam: Absent: respiratory distress Cardiovascular Exam: Present: regular rate. Absent: systolic murmur, diastolic murmur GI/Abdominal exam: Present: soft. Absent: distended Rectal exam: Present: deferred Extremities exam: Present: normal inspection Back exam: Present: normal inspection Neurological exam: Present: alert, oriented X3 Psychiatric exam: Present: normal affect, normal mood Skin exam: Present: warm, dry Course Vital Signs 01/06/18 01/06/18 01/06/18 19:13 21:11 21:15 Temperature 98.5 F Pulse Rate 89 74 85 Respiratory 22 18 Rate Blood Pressure 147/73 113/72 O2 Sat by Pulse 97 98 Oximetry 01/06/18 01/06/18 21:23 22:02 Temperature 97.5 F L Pulse Rate 81 88 Respiratory 18 Rate Blood Pressure 129/85 O2 Sat by Pulse 98 Oximetry EKG Findings - EKG Comments: EKG Findings:: EKG at 1923, rate is 84, rhythm is sinus, the patient is noted to have frequent PACs, normal axis, normal intervals, [place] 168, QRS 88, QTC 463, there are no acute ST elevations or depressions, there is some respiratory artifact noted. There is no evidence of acute ischemia or infarction. Medical Decision Making - Medical Decision Making The patient was seen and evaluated, history was obtained from the patient and review of medical records With a history of COPD, CAD, no history of arrhythmia or dysrhythmia Patient presenting with palpitations and chest pressure, since yesterday, chest pressure worsening today. Heart score - 5 Physical exam with no reproducible chest pain, no wheeze Noted to have frequent PAC on monitor and complain of palpitations Labs with no significant abnormalities Patient care was discussed with Dr. faith who agrees with plan for patient with the patient in observation for evaluation of chest pain by cardiology, cardiology was consulted - Lab Data Result diagrams: 01/06/18 19:56 01/06/18 19:56 Lab Results 01/06/18 01/06/18 01/06/18 Range/Units 19:56 19:56 19:56 WBC 8.5 (3.8-10.6) k/uL RBC 4.90 (3.80-5.40) m/uL Hgb 13.0 (11.4-16.0) gm/dL Hct 40.1 (34.0-46.0) % MCV 81.7 (80.0-100.0) fL MCH 26.6 (25.0-35.0) pg MCHC 32.5 (31.0-37.0) g/dL RDW 14.5 (11.5-15.5) % Plt Count 206 (150-450) k/uL Neutrophils % 60 % Lymphocytes % 23 % Monocytes % 10 % Eosinophils % 4 % Basophils % 1 % Neutrophils # 5.1 (1.3-7.7) k/uL Lymphocytes # 1.9 (1.0-4.8) k/uL Monocytes # 0.8 (0-1.0) k/uL Eosinophils # 0.3 (0-0.7) k/uL Basophils # 0.1 (0-0.2) k/uL PT (9.0-12.0) sec INR (<1.2) APTT (22.0-30.0) sec Sodium 143 (137-145) mmol/L Potassium 4.0 (3.5-5.1) mmol/L Chloride 108 H (98-107) mmol/L Carbon Dioxide 27 (22-30) mmol/L Anion Gap 8 mmol/L BUN 27 H (7-17) mg/dL Creatinine 0.80 (0.52-1.04) mg/dL Est GFR (CKD-EPI)AfAm >90 (>60 ml/min/1.73 sqM) Est GFR (CKD-EPI)NonAf 79 (>60 ml/min/1.73 sqM) Glucose 121 H (74-99) mg/dL Calcium 9.6 (8.4-10.2) mg/dL Magnesium 1.9 (1.6-2.3) mg/dL Total Bilirubin 0.6 (0.2-1.3) mg/dL AST 21 (14-36) U/L ALT 33 (9-52) U/L Alkaline Phosphatase 91 (38-126) U/L Total Creatine Kinase 51 (30-135) U/L CK-MB (CK-2) 0.5 (0.0-2.4) ng/mL CK-MB (CK-2) Rel Index 1.0 Troponin I <0.012 (0.000-0.034) ng/mL Total Protein 6.5 (6.3-8.2) g/dL Albumin 4.1 (3.5-5.0) g/dL TSH 0.049 L (0.465-4.680) mIU/L 01/06/18 Range/Units 19:56 WBC (3.8-10.6) k/uL RBC (3.80-5.40) m/uL Hgb (11.4-16.0) gm/dL Hct (34.0-46.0) % MCV (80.0-100.0) fL MCH (25.0-35.0) pg MCHC (31.0-37.0) g/dL RDW (11.5-15.5) % Plt Count (150-450) k/uL Neutrophils % % Lymphocytes % % Monocytes % % Eosinophils % % Basophils % % Neutrophils # (1.3-7.7) k/uL Lymphocytes # (1.0-4.8) k/uL Monocytes # (0-1.0) k/uL Eosinophils # (0-0.7) k/uL Basophils # (0-0.2) k/uL PT 9.8 (9.0-12.0) sec INR 1.0 (<1.2) APTT 21.7 L (22.0-30.0) sec Sodium (137-145) mmol/L Potassium (3.5-5.1) mmol/L Chloride (98-107) mmol/L Carbon Dioxide (22-30) mmol/L Anion Gap mmol/L BUN (7-17) mg/dL Creatinine (0.52-1.04) mg/dL Est GFR (CKD-EPI)AfAm (>60 ml/min/1.73 sqM) Est GFR (CKD-EPI)NonAf (>60 ml/min/1.73 sqM) Glucose (74-99) mg/dL Calcium (8.4-10.2) mg/dL Magnesium (1.6-2.3) mg/dL Total Bilirubin (0.2-1.3) mg/dL AST (14-36) U/L ALT (9-52) U/L Alkaline Phosphatase (38-126) U/L Total Creatine Kinase (30-135) U/L CK-MB (CK-2) (0.0-2.4) ng/mL CK-MB (CK-2) Rel Index Troponin I (0.000-0.034) ng/mL Total Protein (6.3-8.2) g/dL Albumin (3.5-5.0) g/dL TSH (0.465-4.680) mIU/L Disposition Clinical Impression: Chest pain, Palpitations Disposition: ADMITTED IP TO THIS [facility] Condition: Good Time of Disposition: 21:02
[2018-01-06] MEDS ORDERED: SODIUM CHLORIDE 0.9% 1,000 ML IV SCH (21:15)
[2018-01-06 22:52] VITALS: BMI 34.0
[2018-01-07 02:15] LABS: Basophils # (A) 0.1 k/uL (0-0.2); Basophils % (A) 1 %; Eosinophils # (A) 0.3 k/uL (0-0.7); Eosinophils % (A) 5 %; HCT 36.9 % (34.0-46.0); Lymphocytes # (A) 1.8 k/uL (1.0-4.8); Lymphocytes % (A) 26 %; MCHC 32.6 g/dL (31.0-37.0); MCV 82.7 fL (80.0-100.0); Mean Platelet Volume 7.6; Monocytes # (A) 0.6 k/uL (0-1.0); Monocytes % (A) 8 %; Neutrophils # (A) 3.9 k/uL (1.3-7.7); Neutrophils % (A) 57 %; Platelet Count 179 k/uL (150-450); RBC 4.46 m/uL (3.80-5.40); RDW 14.3 % (11.5-15.5); WBC 6.8 k/uL (3.8-10.6)
[2018-01-07 02:30] LABS: Anion Gap 6 mmol/L; Blood Urea Nitrogen 29 mg/dL (7-17); Calcium 9.1 mg/dL (8.4-10.2); Carbon Dioxide 24 mmol/L (22-30); Chloride 109 mmol/L (98-107); Glucose 122 mg/dL (74-99); Potassium 3.6 mmol/L (3.5-5.1); Sodium 139 mmol/L (137-145)
[2018-01-07] MEDS ORDERED: ALBUTEROL NEBULIZED 2.5 MG/3 ML INHALATION PRN (09:17)
[2018-01-07] MEDS ORDERED: METOPROLOL TARTRATE 25 MG TAB PO SCH (09:30)
--- NOTE | 2018-01-07 09:42 | CONS ---
CONSULTATION ATTENDING DOCTOR: Dr. Baker and Dr. Mcghee. Mrs. Javier is a 62-year-old female with known history of hypertension, hyperlipidemia, history of COPD, who presented with symptoms of palpitations. She has been having palpitations on and off for the last few days, not associated with any other symptoms. Yesterday when she was in the emergency room, she had a brief episode of chest discomfort. She has a known history of chronic dyspnea on exertion related to her COPD. She has stopped smoking in 2001. She has no documented history of CAD, although there was a questionable history of an episode of chest discomfort that could be ischemic 7 years ago, but no workup was done at that time. She has no PND, orthopnea. No peripheral edema. No syncope. She is average in exercise tolerance and has some dyspnea on exertion that is chronic. Her coronary risk factors are remarkable for hypertension, hyperlipidemia. She is nondiabetic. MEDICATION: At home included simvastatin 40 mg daily, singular 10 mg daily, Zestoretic 20-25 mg daily, Synthroid 0.1 mg daily, Q-Kary and Ventolin. REVIEW OF SYSTEMS: RESPIRATORY system: She has history of chronic dyspnea on exertion and chronic obstructive lung disease. No recent cough. GI system: No recent GI bleed. No peptic ulcer disease. system: No dysuria or hematuria. Nervous system: No history of stroke or seizure. PHYSICAL EXAMINATION: She is a 62-year-old female, alert, oriented, in no apparent distress. Blood pressure 136/80 with a heart rate in the 60s. HEAD: Normocephalic. Eyes sclerae nonicteric. Neck: Good carotid upstroke. No bruit. No jugular venous distention. Lungs clear to auscultation. Heart regular rate and rhythm, S1, S2. No S3. No rub appreciated. ABDOMEN: Soft, nontender. Positive bowel sounds. No organomegaly. EXTREMITIES: No edema. Intact distal pulses. EKG revealed sinus mechanism with occasional PVCs and nonspecific ST-T wave changes. LAB DATA: Lab data revealed troponin less than 0.012, BUN creatinine 29 and 0.6, potassium 3.6. Her TSH is 0.049. IMPRESSION: 1. Palpitations could be exacerbated by the thyroid function abnormality. 2. Episode of chest discomfort, atypical for ischemic heart disease. 3. History of chronic obstructive pulmonary disease. 4. History of hypertension. 5. Hyperlipidemia. RECOMMENDATION: I will re-initiate the treatment with her statin and SIMON inhibitor. I will add to her regimen a beta pete. I will obtain echocardiogram with Doppler. The patient dose of Synthroid will need to be adjusted. If she remains stable and ambulating without difficulty, she may be able to be discharged home today and followed as an outpatient to see if she needs any further cardiac workup. Thank you for this consult. We will follow with you. DUKE / PILAR: [phone] /
[2018-01-07] MEDS ORDERED: LISINOPRIL-HCTZ 20-25 MG 1 EACH TAB PO SCH (10:06)
[2018-01-07] MEDS ORDERED: MONTELUKAST 10 MG TAB PO SCH (10:06)
--- NOTE | 2018-01-07 11:44 | P.HPIM ---
History of Present Illness H&P Date: 01/07/18 Chief Complaint: Chest pain and palpitation Patient is a 62-year-old female who presented to [facility] emergency room with a chief complaint of palpitation for several days patient also had an episode of chest pain and decided to come to emergency room, patient is also complaining of shortness of breath but has a long history of COPD she was evaluated in the emergency room, EKG revealed sinus rhythm with nonspecific T-wave abnormality, troponin level was normal. TSH was slightly low patient stated that she was evaluated in that regard by Dr. Mcghee and her dose of Synthroid was recently decreased from 100 g to 88 g.she was admitted to 24-hour observation for further evaluation. Cardiology consult was requested. Patient was seen and examined on the third floor observation unit at this time she is alert and oriented 3 she denies any chest pain but is having significant shortness of breath at this time she is unable to finish full sentences due to shortness of breath. She denies any palpitation at this time. There is no fever or chills no headache or dizziness no cough no nausea or vomiting no abdominal pain and no urinary symptoms. Past Medical History Past Medical History: COPD, GERD/Reflux, Hyperlipidemia, Hypertension, Pneumonia , Thyroid Disorder Additional Past Medical History / Comment(s): COPD, hypertension, hyperlipidemia , hypothyroidism, spondylolisthesis L4-L5, spinal stenosis L4-L5, radiculopathy, History of Any Multi-Drug Resistant Organisms: None Reported Past Surgical History: Appendectomy, Section, Hysterectomy, Orthopedic Surgery, Tonsillectomy Additional Past Surgical History / Comment(s): 05-28-15 LAMINECTOMY AND DECOMPRESSION L4-5, PORFIRIO BUNIONECTOMY(WOUND INFECTION HARDWARE REMVED AND I&D) THEN HAD REVISON LAMINECTOMY/FUSION L4-5, RT CARPAL TUNNEL, 3 C-SECTIONS. Past Anesthesia/Blood Transfusion Reactions: Motion Sickness, Postoperative Nausea & Vomiting (PONV) Additional Past Anesthesia/Blood Transfusion Reaction / Comment(s): CLAUSTERPHOBIA Past Psychological History: No Psychological Hx Reported Smoking Status: Former smoker Past Alcohol Use History: None Reported Past Drug Use History: None Reported - Past Family History Sister(s) Family Medical History: Cancer Mother Family Medical History: COPD Additional Family Medical History / Comment(s): EMPHYSEMA Father Family Medical History: Myocardial Infarction (ID) Medications and Allergies Home Medications Medication Instructions Recorded Confirmed Type Levothyroxine Sodium [Synthroid] 100 mcg PO DAILY 05/19/15 01/06/18 History Lisinopril/Hydrochlorothiazide 1 tab PO DAILY 09/20/15 01/06/18 History [Zestoretic 20-25] Montelukast [Singulair] 10 mg PO DAILY 08/18/16 01/06/18 History Albuterol Nebulized [Ventolin 2.5 mg INHALATION RT-Q6H PRN 10/07/17 01/06/18 History Nebulized] Simvastatin [Zocor] 40 mg PO HS 11/09/17 01/06/18 History Beclomethasone Dipropionate [Qvar 2 puff INHALATION RT-BID 01/06/18 01/06/18 History 40 mcg] Multivit-Min/FA/Lycopen/Lutein 1 tab PO DAILY 01/06/18 01/06/18 History [Centrum Silver Tablet] Allergies Allergy/AdvReac Type Severity Reaction Status Date / Time acetaminophen Allergy Rash/Hives Verified 01/06/18 20:10 [From Darvocet-N] aspirin Allergy Rash/Hives Verified 01/06/18 20:10 [From Empirin W/Codeine] azithromycin Allergy Rash/Hives Verified 01/06/18 20:10 baclofen Allergy Rash/Hives Verified 01/06/18 20:10 butalbital [From Fioricet] Allergy Rash/Hives Verified 01/06/18 20:10 caffeine [From Fioricet] Allergy Rash/Hives Verified 01/06/18 20:10 codeine Allergy Rash/Hives Verified 01/06/18 20:10 codeine phosphate Allergy Rash/Hives Verified 01/06/18 20:10 [From Empirin W/Codeine] cyclobenzaprine HCl Allergy Rash/Hives Verified 01/06/18 20:10 [From Flexeril] etodolac [From Lodine] Allergy Rash/Hives Verified 01/06/18 20:10 ezetimibe [From Vytorin] Allergy Rash/Hives Verified 01/06/18 20:10 flurazepam HCl [From Dalmane] Allergy Rash/Hives Verified 01/06/18 20:10 hydrocodone [From [place]] Allergy Rash/Hives Verified 01/06/18 20:10 hydrocodone bitartrate Allergy Rash/Hives Verified 01/06/18 20:10 [From Vicodin] ketorolac tromethamine Allergy Rash/Hives Verified 01/06/18 20:10 [From Toradol] meperidine HCl [From Demerol] Allergy Rash/Hives Verified 01/06/18 20:10 morphine Allergy Rash/Hives Verified 01/06/18 20:10 Morpholine Analogues Allergy Rash/Hives Verified 01/06/18 20:10 orphenadrine citrate Allergy Rash/Hives Verified 01/06/18 20:10 [From Norflex] Penicillins Allergy Rash/Hives Verified 01/06/18 20:10 pentazocine lactate Allergy Rash/Hives Verified 01/06/18 20:10 [From Talwin] propoxyphene HCl Allergy Rash/Hives Verified 01/06/18 20:10 [From Darvon] propoxyphene napsylate Allergy Rash/Hives Verified 01/06/18 20:10 [From Darvocet-N] simvastatin [From Vytorin] Allergy Rash/Hives Verified 01/06/18 20:10 Physical Exam Vitals: Vital Signs Temp Pulse Pulse Pulse Resp BP BP 01/07/18 08:00 98.9 F 68 77 18 122/64 01/07/18 04:00 98.4 F 68 16 136/82 01/07/18 00:00 66 18 01/06/18 22:02 97.5 F L 88 18 129/85 01/06/18 22:00 98.7 F 76 18 134/63 01/06/18 21:23 81 01/06/18 21:15 85 18 113/72 01/06/18 21:11 74 01/06/18 19:13 98.5 F 89 22 147/73 Pulse Ox 01/07/18 08:00 98 01/07/18 04:00 97 01/07/18 00:00 01/06/18 22:02 98 01/06/18 22:00 95 01/06/18 21:23 01/06/18 21:15 98 01/06/18 21:11 01/06/18 19:13 97 Intake and Output 01/06/18 01/07/18 01/07/18 22:59 06:59 14:59 Other: Voiding Method Toilet Toilet # Voids 3 Weight 81.647 kg In general patient is alert and oriented 3 in no apparent distress HEENT head normocephalic and atraumatic Neck is supple no JVD no goiter no lymphadenopathy Chest exam reveals a few scattered crackles bilaterally no wheezing Cardiac exam reveals regular heart sounds S1 and S2 no gallops no murmurs Abdomen is soft nontender no organomegaly Extremity exam reveals no edema no cyanosis or clubbing Neurological examination reveals no gross focal deficit Results CBC & Chem 7: 01/07/18 02:04 01/07/18 02:04 Labs: Abnormal Lab Results - Last 24 Hours (Table) 01/06/18 01/06/18 01/07/18 Range/Units 19:56 19:56 02:04 APTT 21.7 L (22.0-30.0) sec Chloride 108 H 109 H (98-107) mmol/L BUN 27 H 29 H (7-17) mg/dL Glucose 121 H 122 H (74-99) mg/dL TSH 0.049 L (0.465-4.680) mIU/L Thrombosis Risk Factor Assmnt - Choose All That Apply Each Factor Represents 1 point: Abnormal pulmonary function (COPD), Obesity ( BMI >25) Each Risk Factor Represents 2 Points: Age 61-74 years Thrombosis Risk Factor Assessment Total Risk Factor Score: 4 Thrombosis Risk Factor Assessment Level: Moderate Risk Assessment and Plan Plan: #1 episode of chest pain and palpitation, currently improved, cardiology consultation was requested echocardiogram ordered results are still pending #2 shortness of breath, will check d-dimer, will start DuoNeb updraft 4 times daily Will consult Dr. Richey patient has seen him in the past #3 underlying history of hypothyroidism with TSH slightly low dose was decreased to 88 g recently #4 underlying history of hyperlipidemia maintained on Lipitor continue #5 underlying history of hypertension maintained on lisinopril metoprolol was added to regimen by cardiology At this time will continue was current medication and add DuoNeb updraft Awaiting echocardiogram results Awaiting d-dimer results Awaiting pulmonary input
[2018-01-07] MEDS: IPRATROPIUM-ALBUTEROL 3 ML NEB INHALATION SCH ×2 (13:06→16:38)
--- NOTE | 2018-01-07 16:11 | CT ---
EXAMINATION TYPE: CT angio chest DATE OF EXAM: 01/07/2018 3:02 PM COMPARISON: HISTORY: Heart palpitations, shortness of breath and elevated d-dimer. CT DLP: 373.1 mGycm Automated exposure control for dose reduction was used. CONTRAST: CTA scan of the thorax is performed with IV Contrast, patient injected with 68ml mL of Isovue 370, pu lmonary embolism protocol. . FINDINGS: LUNGS: The lungs are grossly clear, there is no concerning parenchymal mass or nodule identified. T here is no pleural effusion or pneumothorax seen. The tracheobronchial tree is patent. There is aneudy bronchial thickening bilaterally. MEDIASTINUM: There is satisfactory enhancement of the pulmonary artery and its branches, there is no CT evidence for pulmonary embolism. There are no greater than 1 cm hilar or mediastinal lymph nodes. No pericardial effusion is seen. Normal sized thoracic aorta without aneurysmal dilatation. The he art is enlarged with a cardiothoracic ratio of 13.7/25. OTHER: No additional significant abnormality is seen. IMPRESSION: NO EVIDENCE OF PULMONARY EMBOLISM. NO AORTIC ANEURYSM. CARDIOMEGALY. PERIBRONCHIAL THICKENING WITHOUT PNEUMOTHORAX OR PLEURAL EFFUSION. NO DEFINITE ACUTE PARENCHYMAL INFI LTRATE. NO PERICARDIAL EFFUSION. NO AXILLARY OR MEDIASTINAL ADENOPATHY.
--- NOTE | 2018-01-07 16:19 | ECHOF ---
Referral Reason:pvc MEASUREMENTS -------- HEIGHT: 152.4 cm WEIGHT: 81.6 kg BP: RVIDd: 3.0 cm (< 3.3) IVSd: 1.3 cm (0.6 - 1.1) LVIDd: 4.7 cm (3.9 - 5.3) LVPWd: 1.2 cm (0.6 - 1.1) IVSs: 1.7 cm LVIDs: 3.1 cm LVPWs: 1.6 cm LA Diam: 3.8 cm (2.7 - 3.8) LAESV Index (A-L): 27.95 ml/m Ao Diam: 3.5 cm (2.0 - 3.7) AV Cusp: 1.8 cm (1.5 - 2.6) LA Diam: 4.4 cm (2.7 - 3.8) MV EXCURSION: 15.965 mm (> 18.000) MV EF SLOPE: 70 mm/s (70 - 150) EPSS: 0.1 cm MV E Wyatt: 0.60 m/s MV DecT: 225 ms MV A Wyatt: 0.93 m/s MV E/A Ratio: 0.64 RAP: 5.00 mmHg RVSP: 15.28 mmHg FINDINGS -------- Sinus rhythm. This was a technically adequate study. The left ventricular size is normal. There is mild concentric left ventricular hypertrophy. Overa ll left ventricular systolic function is normal with, an EF between 55 - 60 %. The right ventricle is normal in size. The left atrial size is normal. The right atrial size is normal. There is mild aortic valve sclerosis. There is mild aortic regurgitation. Mild mitral annular calcification present. Mild mitral regurgitation is present. Mild tricuspid regurgitation present. There is no evidence of pulmonary hypertension. The right v entricular systolic pressure, as measured by Doppler, is 15.28mmHg. Trace/mild (physiologic) pulmonic regurgitation. The aortic root size is normal. Echo free space represents a pericardial fat pad. CONCLUSIONS -------- 1. Sinus rhythm. 2. The left ventricular size is normal. 3. There is mild concentric left ventricular hypertrophy. 4. Overall left ventricular systolic function is normal with, an EF between 55 - 60 %. 5. The left atrial size is normal. 6. There is mild aortic valve sclerosis. 7. There is mild aortic regurgitation. 8. Mild mitral annular calcification present. 9. Mild mitral regurgitation is present. 10. Mild tricuspid regurgitation present. 11. There is no evidence of pulmonary hypertension. 12. Trace/mild (physiologic) pulmonic regurgitation. 13. The aortic root size is normal. 14. Echo free space represents a pericardial fat pad. VP SCIENTIFIC: Layla Mills RDCS
[2018-01-07 16:34] VITALS: RESP 16; TEMP 98.3
--- NOTE | 2018-01-07 16:39 | P.CNPUL ---
History of Present Illness Consult date: 01/07/18 Requesting physician: Deana Baker Reason for consult: dyspnea Chief complaint: Chest pain History of present illness: This is a pleasant 62-year-old female patient who follows with Dr. Chaidez in as her primary care physician. She has a history of obesity, hypertension, hyperlipidemia, chronic obstructive pulmonary disease, previous smoking history. She presented here to the emergency room yesterday with complaints of chest pain, palpitations and racing heartbeat. No significant shortness of breath at that time. EKG showed sinus rhythm with no acute ST-T wave abnormalities. Troponins negative 3. Echocardiogram pending. TSH 0.049. She was seen and evaluated by cardiology who felt her chest pain to be atypical in her palpitations secondary to thyroid. Her dose was recently decreased. We' re consulted today for her complaints of shortness of breath. She is seen in consultation on the observation unit. She is awake and alert in no acute distress. She currently denies any worsening shortness of breath, cough or congestion. 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 She does have Qvar and albuterol in nebulizer at home which she states she rarely uses. She's currently afebrile. Hemodynamically stable. Maintaining O2 saturations up to 99% on room air. She denies any fever, chills or night sweats. White count 6.8. Hemoglobin 12.0. Creatinine 0.60. D-dimer 0.71. CT angiogram was ordered per medicine and is pending. Review of Systems 14 point review of system was conducted. All negative other than as mentioned in HPI. Past Medical History Past Medical History: COPD, GERD/Reflux, Hyperlipidemia, Hypertension, Pneumonia , Thyroid Disorder Additional Past Medical History / Comment(s): COPD, hypertension, hyperlipidemia , hypothyroidism, spondylolisthesis L4-L5, spinal stenosis L4-L5, radiculopathy, History of Any Multi-Drug Resistant Organisms: None Reported Past Surgical History: Appendectomy, Section, Hysterectomy, Orthopedic Surgery, Tonsillectomy Additional Past Surgical History / Comment(s): 05-28-15 LAMINECTOMY AND DECOMPRESSION L4-5, PORFIRIO BUNIONECTOMY(WOUND INFECTION HARDWARE REMVED AND I&D) THEN HAD REVISON LAMINECTOMY/FUSION L4-5, RT CARPAL TUNNEL, 3 C-SECTIONS. Past Anesthesia/Blood Transfusion Reactions: Motion Sickness, Postoperative Nausea & Vomiting (PONV) Additional Past Anesthesia/Blood Transfusion Reaction / Comment(s): CLAUSTERPHOBIA Past Psychological History: No Psychological Hx Reported Smoking Status: Former smoker Past Alcohol Use History: None Reported Past Drug Use History: None Reported - Past Family History Sister(s) Family Medical History: Cancer Mother Family Medical History: COPD Additional Family Medical History / Comment(s): EMPHYSEMA Father Family Medical History: Myocardial Infarction ([place]) Medications and Allergies Home Medications Medication Instructions Recorded Confirmed Type Levothyroxine Sodium [Synthroid] 100 mcg PO DAILY 05/19/15 01/06/18 History Lisinopril/Hydrochlorothiazide 1 tab PO DAILY 09/20/15 01/06/18 History [Zestoretic 20-25] Montelukast [Singulair] 10 mg PO DAILY 08/18/16 01/06/18 History Albuterol Nebulized [Ventolin 2.5 mg INHALATION RT-Q6H PRN 10/07/17 01/06/18 History Nebulized] Simvastatin [Zocor] 40 mg PO HS 11/09/17 01/06/18 History Beclomethasone Dipropionate [Qvar 2 puff INHALATION RT-BID 01/06/18 01/06/18 History 40 mcg] Multivit-Min/FA/Lycopen/Lutein 1 tab PO DAILY 01/06/18 01/06/18 History [Centrum Silver Tablet] Allergies Allergy/AdvReac Type Severity Reaction Status Date / Time acetaminophen Allergy Rash/Hives Verified 01/06/18 20:10 [From Darvocet-N] aspirin Allergy Rash/Hives Verified 01/06/18 20:10 [From Empirin W/Codeine] azithromycin Allergy Rash/Hives Verified 01/06/18 20:10 baclofen Allergy Rash/Hives Verified 01/06/18 20:10 butalbital [From Fioricet] Allergy Rash/Hives Verified 01/06/18 20:10 caffeine [From Fioricet] Allergy Rash/Hives Verified 01/06/18 20:10 codeine Allergy Rash/Hives Verified 01/06/18 20:10 codeine phosphate Allergy Rash/Hives Verified 01/06/18 20:10 [From Empirin W/Codeine] cyclobenzaprine HCl Allergy Rash/Hives Verified 01/06/18 20:10 [From Flexeril] etodolac [From Lodine] Allergy Rash/Hives Verified 01/06/18 20:10 ezetimibe [From Vytorin] Allergy Rash/Hives Verified 01/06/18 20:10 flurazepam HCl [From Dalmane] Allergy Rash/Hives Verified 01/06/18 20:10 hydrocodone [From Palmetto] Allergy Rash/Hives Verified 01/06/18 20:10 hydrocodone bitartrate Allergy Rash/Hives Verified 01/06/18 20:10 [From Vicodin] ketorolac tromethamine Allergy Rash/Hives Verified 01/06/18 20:10 [From Toradol] meperidine HCl [From Demerol] Allergy Rash/Hives Verified 01/06/18 20:10 morphine Allergy Rash/Hives Verified 01/06/18 20:10 Morpholine Analogues Allergy Rash/Hives Verified 01/06/18 20:10 orphenadrine citrate Allergy Rash/Hives Verified 01/06/18 20:10 [From Norflex] Penicillins Allergy Rash/Hives Verified 01/06/18 20:10 pentazocine lactate Allergy Rash/Hives Verified 01/06/18 20:10 [From Talwin] propoxyphene HCl Allergy Rash/Hives Verified 01/06/18 20:10 [From Darvon] propoxyphene napsylate Allergy Rash/Hives Verified 01/06/18 20:10 [From Darvocet-N] simvastatin [From Vytorin] Allergy Rash/Hives Verified 01/06/18 20:10 Physical Exam Vitals: Vital Signs Temp Pulse Pulse Pulse Resp BP BP 01/07/18 13:18 88 01/07/18 13:09 84 01/07/18 12:00 98.1 F 52 L 18 123/64 01/07/18 08:00 98.9 F 68 77 18 122/64 01/07/18 04:00 98.4 F 68 16 136/82 01/07/18 00:00 66 18 01/06/18 22:02 97.5 F L 88 18 129/85 01/06/18 22:00 98.7 F 76 18 134/63 01/06/18 21:23 81 01/06/18 21:15 85 18 113/72 01/06/18 21:11 74 01/06/18 19:13 98.5 F 89 22 147/73 Pulse Ox 01/07/18 13:18 01/07/18 13:09 01/07/18 12:00 99 01/07/18 08:00 98 01/07/18 04:00 97 01/07/18 00:00 01/06/18 22:02 98 01/06/18 22:00 95 01/06/18 21:23 01/06/18 21:15 98 01/06/18 21:11 01/06/18 19:13 97 Intake and Output 01/06/18 01/07/18 01/07/18 22:59 06:59 14:59 Other: Voiding Method Toilet Toilet # Voids 3 Weight 81.647 kg GENERAL EXAM: Alert, active, comfortable in no apparent distress. HEAD: Normocephalic. EYES: Normal reaction of pupils, equal size. NOSE: Clear with pink turbinates. THROAT: No erythema or exudates. NECK: No masses, no JVD. CHEST: No chest wall deformity. LUNGS: Equal air entry with no crackles, wheeze, rhonchi or dullness. CVS: S1 and S2 normal with no audible murmur, regular rhythm. ABDOMEN: No hepatosplenomegaly, normal bowel sounds, no guarding or rigidity. SPINE: No scoliosis or deformity SKIN: No rashes CENTRAL NERVOUS SYSTEM: No focal deficits, tone is normal in all 4 extremities. EXTREMITIES: There is no peripheral edema. No clubbing, no cyanosis. Peripheral pulses are intact. Results - Laboratory Findings CBC and BMP: 01/07/18 02:04 01/07/18 02:04 PT/INR, D-dimer PT 9.8 sec (9.0-12.0) 01/06/18 19:56 INR 1.0 (<1.2) 01/06/18 19:56 D-Dimer 0.71 mg/L FEU (<0.60) H 01/07/18 11:54 Abnormal lab findings: Abnormal Labs 01/06/18 01/06/18 01/07/18 19:56 19:56 02:04 APTT 21.7 L D-Dimer Chloride 108 H 109 H BUN 27 H 29 H Glucose 121 H 122 H TSH 0.049 L 01/07/18 11:54 APTT D-Dimer 0.71 H Chloride BUN Glucose TSH - Diagnostic Findings Chest x-ray: image reviewed Assessment and Plan Assessment: Impression: #1 Atypical chest pain. #2 Palpitations suspect secondary to abnormal thyroid function. #3 Shortness of breath suspect secondary to a mild acute COPD exacerbation. Mildly elevated d-dimer. CT angiogram shows no evidence of pulmonary embolism or any other abnormalities. #4 Hypothyroidism. #5 Hypertension. #6 Hyperlipidemia. Plan: The patient was seen and evaluated by Dr. Galeano. Chest x-ray and labs reviewed. CT angiogram reveals no pulmonary abnormalities. She is quite stable from the pulmonary standpoint and could be discharged home once cleared by medicine. Continue Singulair, Qvar and albuterol. Follow-up in our office in 1-2 weeks' time. She would benefit from full pulmonary function testing to evaluate the severity of her suspected COPD and make further recommendations regarding maintenance medications. I, the cosigning physician, performed a history & physical examination of the patient. Lungs sounds are clear. Diminished. Maintaining good O2 saturations in the 90s on room air. I discussed the assessment and plan of care with my nurse practitioner, Delphine Tang. I attest to the above consultation as dictated by her. Time with Patient: Greater than 30
[2018-01-07 16:50] VITALS: PULSE 80
[2018-01-07 16:59] VITALS: BP 116/78
[2018-01-07] MEDS ORDERED: BUDESONIDE 0.5 MG/2 ML NEBU INHALATION SCH (20:00)
[2018-01-07] MEDS ORDERED: ATORVASTATIN 20 MG TAB PO SCH (21:00)
[2018-01-08] MEDS ORDERED: LEVOTHYROXINE 88 MCG TAB PO SCH (06:30)
[2018-01-08] MEDS ORDERED: ASPIRIN 81 MG PO SCH (09:00)
[2018-01-08] MEDS ORDERED: MONTELUKAST 10 MG TAB PO SCH (09:00)
[2018-01-08] MEDS ORDERED: LISINOPRIL-HCTZ 20-25 MG 1 EACH TAB PO SCH (09:00)
[2018-01-08] MEDS ORDERED: MULTIVITAMINS, THERA 1 EACH TAB PO SCH (12:00)
--- NOTE | 2018-01-09 08:54 | XR ---
EXAMINATION TYPE: XR chest 2V DATE OF EXAM: 01/06/2018 COMPARISON: 10/10/2017 INDICATION: Dysrhythmia TECHNIQUE: Frontal and lateral views of the chest are obtained. Images are presented 01/09/2018 for f inal interpretation. FINDINGS: The heart size is normal. The pulmonary vasculature is normal. Minimal plate atelectasis at the left base. Lungs are otherwise clear. IMPRESSION: 1. Minimal plate atelectasis left costophrenic angle.
== END 2018-01-07 18:25 | disposition home or self-care (01) ==
LOC: EC 19:08 → 3OBS 21:02
PROVIDERS: ADMIT Internal Medicine; ATTEND Internal Medicine
DX: R07.89 Other chest pain (principal); R00.2 Palpitations; E03.9 Hypothyroidism, unspecified; R79.89 Other specified abnormal findings of blood chemistry; I10 Essential (primary) hypertension; J44.9 Chronic obstructive pulmonary disease, unspecified; E78.5 Hyperlipidemia, unspecified; Z68.34 Body mass index [BMI] 34.0-34.9, adult; E66.9 Obesity, unspecified; K21.9 Gastro-esophageal reflux disease without esophagitis; M48.061 Spinal stenosis, lumbar region without neurogenic claudication; M54.16 Radiculopathy, lumbar region; M43.16 Spondylolisthesis, lumbar region; F40.240 Claustrophobia; Z79.890 Hormone replacement therapy; Z79.51 Long term (current) use of inhaled steroids; Z79.899 Other long term (current) drug therapy; Z88.6 Allergy status to analgesic agent; Z88.1 Allergy status to other antibiotic agents; Z88.5 Allergy status to narcotic agent; Z88.0 Allergy status to penicillin; Z88.8 Allergy status to other drugs, medicaments and biological substances; Z91.048 Other nonmedicinal substance allergy status; Z98.1 Arthrodesis status; Z87.01 Personal history of pneumonia (recurrent); Z87.891 Personal history of nicotine dependence; Z90.710 Acquired absence of both cervix and uterus; Z90.89 Acquired absence of other organs; Z82.5 Family history of asthma and other chronic lower respiratory diseases; Z80.9 Family history of malignant neoplasm, unspecified; Z82.49 Family history of ischemic heart disease and other diseases of the circulatory system
CPT/HCPCS: 99285 ×2; 96360 ×2; 96361 ×2; 36415; 94640 ×3; 93005; 93306; 85379; 80053; 80048; 82550; 82553; 83735; 84443; 84484 ×2; 85025 ×2; 85610; 85730; 71046; 71275; G0378 ×2; Q9967

== ENCOUNTER → 2018-01-25 | Outpatient (CLI) | payer OTHER ==
--- NOTE | 2018-01-25 12:45 | US ---
EXAMINATION TYPE: US thyroid st tissue head/neck DATE OF EXAM: 01/25/2018 COMPARISON: NONE CLINICAL HISTORY: 62-year-old female E03.9 hypothyroidism, R00.2 palpitations. Patient on thyroid med s. TECHNIQUE: Multiple sonographic images of the thyroid gland are obtained. FINDINGS: GLAND SIZE: Right Lobe: 2.7 x 1.1 x 0.9 cm Overall Parenchyma: heterogenous Left Lobe: 3.0 x 1.0 x 0.9 cm Overall Parenchyma: heterogeneous Isthmus Thickness: 0.3 cm NODULES RIGHT: # of nodules measured on right: 0 LEFT: # of nodules measured on left: 0 ISTHMUS: # of nodules measured in the isthmus: 0 Bilateral neck scanned, no evidence of lymphadenopathy. IMPRESSION: 1. Small heterogeneous thyroid gland suggesting chronic hypothyroidism. 2. No discrete nodule.
== END | disposition home or self-care (01) ==
LOC: RADUSWWP 09:15
PROVIDERS: ATTEND Family Medicine
DX: E03.9 Hypothyroidism, unspecified (principal); R00.2 Palpitations
CPT/HCPCS: 76536

== ENCOUNTER → 2018-01-25 | Outpatient (CLI) | payer OTHER ==
--- NOTE | 2018-01-25 15:17 | US ---
EXAMINATION TYPE: US kidneys/renal and bladder DATE OF EXAM: 01/25/2018 COMPARISON: NONE CLINICAL HISTORY: 62-year-old female N28.1 Kidney Cyst. Cyst seen on MRI TECHNIQUE: Multiple sonographic images of the kidneys and bladder are obtained. FINDINGS: EXAM MEASUREMENTS: Right Kidney: 10.5 x 5.3 x 5.1 cm Left Kidney: 10.4 x 4.9 x 4.6 cm Post Void Residual Volume: 23.9 mL Right Kidney: 1.8 cm cyst in the midpole, 1.5 cm cyst in the upper pole, and 1.0 cm cyst in the lower pole. No hydronephrosis. Left Kidney: 8 mm echogenic focus medially likely nonobstructive calculus. 1.1 cm medial cyst and a 1 .4 cm mid pole cyst. No hydronephrosis. Bladder: Underdistention limits evaluation. Bilateral Jets seen: Yes Normal Post Void Residual: Increased but still within acceptable limits. IMPRESSION: 1. No hydronephrosis. 2. Bilateral benign renal cysts. 3. An 8 mm nonobstructive calculus on the left. 4. Increased postvoid residual bladder volume of 24 mL still falls within acceptable limits.
== END | disposition home or self-care (01) ==
LOC: RADUSWWP 09:59
PROVIDERS: ATTEND Family Medicine
DX: N20.0 Calculus of kidney (principal); N28.1 Cyst of kidney, acquired
CPT/HCPCS: 76536; 76770

== ENCOUNTER → 2018-03-17 | Outpatient (CLI) | payer OTHER ==
[2018-03-17 07:26] LABS: HCT 43.6 % (34.0-46.0); HGB 14.3 gm/dL (11.4-16.0); MCH 26.9 pg (25.0-35.0); MCHC 32.8 g/dL (31.0-37.0); MCV 82.1 fL (80.0-100.0); Mean Platelet Volume 7.1; Platelet Count 223 k/uL (150-450); RBC 5.31 m/uL (3.80-5.40); RDW 13.8 % (11.5-15.5)
[2018-03-17 07:28] LABS: Appearance,Urine Clear (Clear); Bilirubin,Urine Negative (Negative); Blood,Urine Negative (Negative); Color,Urine Light Yellow; Glucose,Urine (UA) Negative (Negative); Ketones,Urine Negative (Negative); Leukocyte Esterase,Urine Negative (Negative); Nitrite,Urine Negative (Negative); PH, Urine 6.5 (5.0-8.0); Protein,Urine Negative (Negative); Specific Gravity,Urine 1.007 (1.001-1.035); Urobilinogen,Urine <2.0 mg/dL (<2.0)
[2018-03-17 07:31] LABS: Partial Thromboplastin Time 23.2 sec (22.0-30.0); Prothrombin Time 9.8 sec (9.0-12.0)
[2018-03-17 07:40] LABS: ALT 27 U/L (9-52); AST 28 U/L (14-36); Albumin 4.2 g/dL (3.5-5.0); Alkaline Phosphatase 96 U/L (38-126); Anion Gap 11 mmol/L; Blood Urea Nitrogen 25 mg/dL (7-17); Calcium 9.6 mg/dL (8.4-10.2); Carbon Dioxide 28 mmol/L (22-30); Chloride 101 mmol/L (98-107); Glucose 111 mg/dL (74-99); Potassium 4.7 mmol/L (3.5-5.1); Sodium 140 mmol/L (137-145); Total Bilirubin 0.9 mg/dL (0.2-1.3); Total Protein 7.4 g/dL (6.3-8.2)
== END | disposition home or self-care (01) ==
LOC: LABPAT 06:36
PROVIDERS: ATTEND Orthopaedic Surgery
DX: Z01.812 Encounter for preprocedural laboratory examination (principal)
CPT/HCPCS: 36415; 80053; 81003; 85027; 85610; 85730; 86850; 86900; 86901; 87070

== ENCOUNTER 2018-03-27 05:35 | Inpatient (IN) | payer OTHER ==
[~2018-03-27 05:35] MED LIST changes: +DEXAMETHASONE SOD PHOSPHATE 10 MG/ML 1 ML VIAL IV ONE; -LACTATED RINGERS 1,000 ML IV SCH; +LIDOCAINE 1% 20 ML VIAL (10MG/ML) FOR IV START INTRADERMA PRN; +MELOXICAM 7.5 MG TAB PO ONE; +MIDAZOLAM 2 MG/2 ML VIAL IV PRN; +ONDANSETRON 4 MG/2 ML VIAL IVP ONE; +TRANEXAMIC ACID 1,000 MG in SODIUM CHLORIDE 0.9% 50 ML IVPB ONE; +ceFAZolin IN SWFI 2 GM/20 ML SYRINGE IVP ONE; +fentaNYL (PF) 50 MCG/ML 2 ML AMP IV PRN
[2018-03-27] MEDS ORDERED: ROPIVACAINE 246.25 MG, EPINEPHrine 0.5 MG, KETOROLAC 30 MG, cloNIDine HCL/PF 80 MCG, WA... MISCELLANE ONE ×5 (06:01)
[2018-03-27] MEDS ORDERED: LIDOCAINE 1% 20 ML VIAL (10MG/ML) FOR IV START INTRADERMA ONE (06:30)
[2018-03-27] MEDS ORDERED: ONDANSETRON 4 MG/2 ML VIAL ONE (06:35)
[2018-03-27] MEDS ORDERED: CLINDAMYCIN 900 MG in DEXTROSE 5% IN WATER 50 ML IVPB STA ×2 (06:53)
[2018-03-27] MEDS ORDERED: ONDANSETRON 4 MG/2 ML VIAL IVP PRN (06:55)
[2018-03-27] MEDS ORDERED: MAGNESIUM HYDROXIDE 2,400 MG/10 ML CUP PO PRN (06:55)
[2018-03-27] MEDS ORDERED: HYDROmorphone 0.5 MG/0.5 ML SYRINGE IVP PRN ×3 (06:55)
[2018-03-27] MEDS ORDERED: NALOXONE 0.4 MG/ML 1 ML VIAL IV PRN (06:55)
[2018-03-27] MEDS: LACTATED RINGERS 1,000 ML IV SCH ×2 (07:02→11:02)
[2018-03-27] MEDS ORDERED: ONDANSETRON 4 MG/2 ML VIAL IVP ONE ×2 (07:06→09:05)
[2018-03-27] MEDS ORDERED: ROCURONIUM BROMIDE 10 MG/ML 10 ML VIAL IV ONE (07:07)
[2018-03-27] MEDS ORDERED: NEOSTIGMINE 1 MG/ML 10 ML VIAL ONE (07:07)
[2018-03-27] MEDS ORDERED: PROPOFOL 10 MG/ML 20 ML VIAL IV ONE (07:07)
[2018-03-27] MEDS ORDERED: LIDOCAINE 1% INJ 10MG/ML (20 ML MDV) ONE (07:07)
[2018-03-27] MEDS ORDERED: GLYCOPYRROLATE 0.2 MG/ML 2 ML VIAL ONE (07:07)
[2018-03-27] MEDS ORDERED: fentaNYL (PF) 50 MCG/ML 2 ML AMP ONE (07:07)
[2018-03-27] MEDS ORDERED: HEPARIN SODIUM,PORCINE 10,000 UNIT/ML 1 ML VIAL ONE (07:07)
[2018-03-27] MEDS ORDERED: ePHEDrine SULFATE/0.9% NACL/PF 50 MG/5 ML SYRINGE IV ONE (07:07)
[2018-03-27] MEDS ORDERED: MIDAZOLAM 2 MG/2 ML VIAL ONE (07:07)
[2018-03-27] MEDS ORDERED: SODIUM CHLORIDE 0.9% IRRIG 1,000 ML BTL IRRIGATION ONE (07:07)
[2018-03-27] MEDS ORDERED: SUCCINYLCHOLINE CHLORIDE 100 MG/5 ML SYR IV ONE (07:07)
[2018-03-27] MEDS ORDERED: CLINDAMYCIN 1,800 MG in SODIUM CHLORIDE 0.9% IRRIGATIO 3,000 ML IRRIGATION ONE (08:41)
--- NOTE | 2018-03-27 08:43 | P.OP ---
Date of Procedure: 03/27/18 Preoperative Diagnosis: Severe osteoarthritis right hip Postoperative Diagnosis: Severe osteoarthritis right hip Procedure(s) Performed: Right total hip arthroplasty with a direct anterior approach Implants: Jenkins and nephew Polarstem size 3 standard Jenkins & Nephew R3, 3 hole acetabular shell, 48 mm Jenkins & Nephew reflection 6.5 mm cancellus screw, 20 mm 2 Jenkins & Nephew R3, XLPE 20 acetabular liner Jenkins & Nephew Oxinium femoral head 32 m, +0 All components were press-fit. The articulation is Oxinium on polyethylene. Anesthesia: GETA Surgeon: Montrell Nuno Metal Tank Builder #1: Lyric Squires Estimated Blood Loss (ml): 200 (66 mL returned with Cell Saver) Pathology: other (Femoral head) Condition: stable Disposition: PACU Indications for Procedure: After failure of conservative treatment we discussed the surgical and nonsurgical treatment options at length. Patient wishes to proceed with a total hip arthroplasty with a direct anterior approach. Complications specific to this procedure were discussed at length, including but not limited to infection, leg length discrepancy, dislocation, and nerve injury. Patient is aware of all these complications and informed consent was obtained Operative Findings: The operative findings are consistent with severe osteoarthritis of the right hip Description of Procedure: Patient was seen and evaluated in the preoperative area, consent was reviewed, and the surgical site was marked with a skin marker. Patient was then brought to the operating room and given prophylactic antibiotics intravenously. 1 g of Tranexamic acid was also given. A general anesthetic was administered by the anesthesia department. The patient was then placed on the Clifton table with the bony prominences well-padded. The hip area was then prepped and draped in usual sterile fashion. A universal timeout was then performed, which confirmed the patient's name, surgical site, ALLERGIES, and procedure being performed. Next the incision site was located at 1 cm distal and 1 cm lateral to the anterior superior iliac spine. The skin and subcutaneous tissues were sharply incised. Incision was carefully dissected down to the fascia overlying the tensor fascia dequan muscle. This fascia was then incised in line with the incision. Next, using blunt finger dissection, the tensor fascia dequan muscle was dissected off its investing fascia. The muscle was then carefully retracted laterally with a cobra retractor over the lateral neck of the femur. Next, the circumflex vessels were identified and cauterized using the AquaMantis device. The anterior hip capsule was then exposed. The capsule was then opened and an inverted T fashion. Cobra retractors were then placed intracapsularly. The proximal femur was then visualized. The femoral neck was then osteotomized appropriate level above the lesser trochanter. Small amount of traction was placed with the Clifton table. A small wedge of bone was then removed from the remaining femoral head. Next, using a corkscrew femoral head was easily removed from the acetabulum. On gross visual inspection, the femoral head had complete loss of articular cartilage in multiple periarticular osteophytes. Attention was then turned to the acetabulum. the acetabulum was exposed and any remaining labrum was excised. Sequential reaming of the acetabulum was performed using fluoroscopic guidance. When the appropriate size was reached, a trial was then placed. The position and fit of the trial was checked with fluoroscopy. The trial was then removed. Then, using fluoroscopic guidance, the final implant was impacted at 20 of anteversion and 40 of abduction, and fully seated in the acetabulum. 2 screws were then placed in the acetabulum. Again fluoroscopy was used to check position of the screws. Next, the liner was then impacted, with a 20 elevated liner located in the anterior superior quadrant. Component locking was confirmed. Attention was then directed to the femur. With the aid of the Clifton table, the femur was externally rotated to approximately 130, extended, and abducted under the opposite leg. A side hook was then placed under the proximal femur, and the side hook elevator was used to elevate the proximal femur. Retractors were then placed. A capsular release was performed, as well as a release of the conjoined tendon, which afforded excellent visualization of the proximal femur. Next, a box osteotome was used to lateralize the proximal femur. A ice handler was then used to locate the femoral canal. Sequential broaching was then performed with appropriate size which afforded excellent fixation in the proximal femur. A trial was then placed with appropriate head and neck, and the hip was gently reduced with the aid of the Clifton table. Fluoroscopy was then used to check position of the components, as well as to ensure equal leg lengths. The hip was then gently dislocated and the trials were then removed. Final implants were then impacted and the hip was again reduced. Final fluoroscopic x-rays confirmed that the components were in anatomic position, as well as equal leg lengths. The hip was also taken through range of motion, and found to be stable. The hip was then copiously irrigated with antibiotic solution with pulsatile lavage. The hip was then irrigated with Irrisept solution. The soft tissues were then injected with a ropivacaine solution, which consisted of 246.25 mg of ropivacaine, 0.5 mg of epinephrine, 30 mg of Toradol, 80 g of clonidine, and 48.45 mL of sterile water, for a total of 100 mL of fluid injected. A second dose of 1 g of Tranexamic acid was also given. the fascia was then closed with 2-0 strata fix suture. The subcutaneous tissue was closed with 3-0 Vicryl. The subcuticular tissue was closed with 3-0 strata fix suture. The skin was then closed with Dermabond glue and a sterile silver dressing. The patient was then transferred to the recovery room in stable condition. The drafter assistant YESSICA Gregg was required due to the complexity of surgery, and the need for skilled preschool assistant teacher for positioning, draping, exposure, retraction, and closure of the wound.
--- NOTE | 2018-03-27 08:55 | FL ---
Fluoroscopy INDICATION: Pain FINDINGS: Fluoroscopy time: 38 seconds. Images obtained: 2. IMPRESSIONS: 1. Documentation of fluoroscopy.
[2018-03-27] MEDS: fentaNYL (PF) 50 MCG/ML 2 ML AMP IVP ONE ×3 (09:10→09:37)
--- NOTE | 2018-03-27 09:14 | XR ---
EXAMINATION TYPE: XR Hip Limited RT DATE OF EXAM: 03/27/2018 COMPARISON: None HISTORY: Right hip prosthesis TECHNIQUE: AP right hip FINDINGS: Right femoral prosthesis with acetabular component is in place. No acute fractures are evid ent. IMPRESSION: 1. No fractures post right hip prosthesis placement
[2018-03-27] MEDS: diphenhydrAMINE 50 MG/ML 1 ML VIAL IVP ONE ×2 (09:45→10:03)
[2018-03-27] MEDS ORDERED: LACTATED RINGERS 1,000 ML IV ONE (09:49)
[2018-03-27] MEDS: SODIUM CHLORIDE 0.9% 1,000 ML IV SCH (10:46)
[2018-03-27] MEDS: traMADol 50 MG TAB PO PRN (11:04)
[2018-03-27 11:23] VITALS: BMI 34.0
--- NOTE | 2018-03-27 14:10 | P.HPIM ---
History of Present Illness H&P Date: 03/27/18 This is a 62-year-old female patient of Dr. Mcghee. Patient presented to the hospital for an elective right total hip arthroplasty with Dr. Nuno. Patient has known past medical history of COPD, hyperlipidemia, hypertension, osteoarthritis, pneumonia and thyroid disorder. At this time patient is resting comfortably in bed. Patient does complain of some pain but has multiple ALLERGIES to many pain medications except only tolerate tramadol and ice at this time. At this time patient denies chest pain or shortness breath. Patient denies nausea vomiting or diarrhea. Patient denies any urinary burning or frequency. Patient states she has advanced obstructive to be a no code DO NOT RESUSCITATE. Patient is alert and oriented 3. 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 History of Any Multi-Drug Resistant Organisms: None Reported Past Surgical History: Appendectomy, Section, Hysterectomy, Orthopedic Surgery, Tonsillectomy Additional Past Surgical History / Comment(s): 05-28-15 LAMINECTOMY AND DECOMPRESSION L4-5, PORFIRIO BUNIONECTOMY(WOUND INFECTION HARDWARE REMOVED AND I&D). , REVISON LAMINECTOMY/FUSION L4-5, PORFIRIO CARPAL TUNNEL, 3 C-SECTIONS. Past Anesthesia/Blood Transfusion Reactions: Motion Sickness, Postoperative Nausea & Vomiting (PONV) Additional Past Anesthesia/Blood Transfusion Reaction / Comment(s): CLAUSTERPHOBIA Past Psychological History: No Psychological Hx Reported Additional Psychological History / Comment(s): . Smoking Status: Former smoker Past Alcohol Use History: None Reported Additional Past Alcohol Use History / Comment(s): STARTED SMOKING AGE 12 ., QUIT SMOKING 2001., SMOKED UP TO 3 PPD. Past Drug Use History: None Reported - Past Family History Sister(s) Family Medical History: Cancer Additional Family Medical History / Comment(s): BREAST CANCER Mother Family Medical History: COPD Additional Family Medical History / Comment(s): EMPHYSEMA Father Family Medical History: Myocardial Infarction (NM) Medications and Allergies Home Medications Medication Instructions Recorded Confirmed Type Lisinopril/Hydrochlorothiazide 1 tab PO DAILY 09/20/15 03/27/18 History [Zestoretic 20-25] Montelukast [Singulair] 10 mg PO DAILY 08/18/16 03/27/18 History Multivit-Min/FA/Lycopen/Lutein 1 tab PO DAILY 01/06/18 03/27/18 History [Centrum Silver Tablet] Beclomethasone Dip 80 Mcg/Puff 2 puff INHALATION RT-BID 03/15/18 03/27/18 History [Qvar 80 mcg] Ezetimibe [Zetia] 10 mg PO HS 03/15/18 03/27/18 History Levothyroxine Sodium [Synthroid] 75 mcg PO DAILY 03/15/18 03/27/18 History Metoprolol Tartrate [Lopressor] 50 mg PO BID 03/15/18 03/27/18 History Naproxen Sodium [Aleve] 220 mg PO DAILY PRN 03/15/18 03/27/18 History Allergies Allergy/AdvReac Type Severity Reaction Status Date / Time hydromorphone [From Dilaudid] Allergy Severe Nausea & Verified 03/27/18 10:39 Vomiting erythromycin base Allergy Unknown Rash/Hives Verified 03/27/18 10:39 acetaminophen Allergy Rash/Hives Verified 03/27/18 10:39 [From Darvocet-N] aspirin Allergy Rash/Hives Verified 03/27/18 10:39 [From Empirin W/Codeine] azithromycin Allergy Rash/Hives Verified 03/27/18 10:39 baclofen Allergy Rash/Hives Verified 03/27/18 10:39 butalbital [From Fioricet] Allergy Rash/Hives Verified 03/27/18 10:39 caffeine [From Fioricet] Allergy Rash/Hives Verified 03/27/18 10:39 codeine Allergy Rash/Hives, Verified 03/27/18 10:39 Vomiting codeine phosphate Allergy Rash/Hives Verified 03/27/18 10:39 [From Empirin W/Codeine] cyclobenzaprine HCl Allergy Rash/Hives Verified 03/27/18 10:39 [From Flexeril] etodolac [From Lodine] Allergy Rash/Hives Verified 03/27/18 10:39 ezetimibe [From Vytorin] Allergy Rash/Hives Verified 03/27/18 10:39 flurazepam HCl [From Dalmane] Allergy Rash/Hives Verified 03/27/18 10:39 hydrocodone [From Spencer] Allergy Rash/Hives Verified 03/27/18 10:39 hydrocodone bitartrate Allergy Rash/Hives, Verified 03/27/18 10:39 [From Vicodin] Vomiting ketorolac tromethamine Allergy Rash/Hives, Verified 03/27/18 10:39 [From Toradol] Vomiting meperidine HCl [From Demerol] Allergy Rash/Hives Verified 03/27/18 10:39 morphine Allergy Rash/Hives Verified 03/27/18 10:39 Morpholine Analogues Allergy Rash/Hives Verified 03/27/18 10:39 orphenadrine citrate Allergy Rash/Hives Verified 03/27/18 10:39 [From Norflex] Penicillins Allergy Rash/Hives Verified 03/27/18 10:39 pentazocine lactate Allergy Rash/Hives Verified 03/27/18 10:39 [From Talwin] propoxyphene HCl Allergy Rash/Hives Verified 03/27/18 10:39 [From Darvon] propoxyphene napsylate Allergy Rash/Hives Verified 03/27/18 10:39 [From Darvocet-N] simvastatin [From Vytorin] Allergy Rash/Hives Verified 03/27/18 10:39 dolene Allergy Unknown Rash/Hives Uncoded 03/15/18 11:12 Physical Exam Vitals: Vital Signs Temp Pulse Pulse Resp BP BP Pulse Ox 03/27/18 13:01 60 16 119/66 99 03/27/18 12:20 59 L 16 114/76 97 03/27/18 12:05 67 16 124/74 99 03/27/18 11:50 52 L 16 112/64 99 03/27/18 11:35 55 L 16 114/69 99 03/27/18 11:20 54 L 16 124/77 99 03/27/18 11:11 61 16 03/27/18 10:51 57 L 118/68 100 03/27/18 10:35 59 L 18 138/83 95 03/27/18 10:20 98.0 F 65 18 129/76 90 L 10/08/18 09:56 61 16 145/66 95 03/27/18 09:41 70 14 132/63 95 03/27/18 09:26 67 14 156/68 97 03/27/18 09:11 6 L 16 151/65 96 03/27/18 08:56 96.9 F L 74 15 157/77 95 03/27/18 06:24 98.4 F 57 L 18 133/70 94 L Intake and Output 03/26/18 03/27/18 03/27/18 22:59 06:59 14:59 Intake Total 1057 Output Total 200 Balance 857 Intake: IV 1057 Output: Estimated Blood Loss 200 Other: Weight 81.647 kg Head normocephalic Neck supple Lungs clear to auscultation bilaterally no wheezing or crackles Heart regular rate and rhythm S1-S2, no rub or gallop Abdomen is soft nontender nondistended positive bowel sounds no hepatosplenomegaly Extremities no edema. Right hip dressing clean dry and intact Neuro alert and orientated to 3 Thrombosis Risk Factor Assmnt - Choose All That Apply Any of the Below Risk Factors Present?: Yes Each Factor Represents 1 point: Obesity (BMI >25) Other Risk Factors: Yes Each Risk Factor Represents 2 Points: Age 61-74 years, Major surgery Thrombosis Risk Factor Assessment Total Risk Factor Score: 5 Thrombosis Risk Factor Assessment Level: High Risk Assessment and Plan Assessment: 1. Status post total right hip arthroplasty with Dr. Nuno. Patient is currently on aspirin 325 twice a day. pain meds per surgical services 2. History of COPD. Home medications resumed 3. History of hyperlipidemia. Home medications resumed 4. History of essential hypertension. Patient maintained on Lopressor and lisinopril 5. History of osteoarthritis 6. History of hypothyroidism. Synthroid resumed DVT prophylaxis aspirin. GI prophylaxis Pepcid Acute for this consultation we will continue to follow patient closely throughout stay A.m. labs have been ordered. Patient planning to be discharged home when cleared Time with Patient: Greater than 30 (Greater than 60% of the total time spent in counseling and coordination of care. I performed an examination of the patient and discussed their management with the Nurse Practitioner. I have reviewed the Nurse Practitioner's notes and agree with the documented findings and plan of care)
[2018-03-27] MEDS: CLINDAMYCIN 900 MG in DEXTROSE 5% IN WATER 50 ML IVPB SCH ×4 (16:07→23:47)
[2018-03-27] MEDS: FLUTICASONE 110 MCG INHALER INHALATION SCH (20:23)
[2018-03-27] MEDS ORDERED: EZETIMIBE 10 MG TAB PO SCH (21:00)
[2018-03-27] MEDS: ONDANSETRON 4 MG/2 ML VIAL IVP PRN (21:43)
[2018-03-27] MEDS: ASPIRIN 325 MG TAB PO SCH (21:43)
[2018-03-27] MEDS: SENNOSIDES-DOCUSATE SODIUM 1 EACH TAB PO SCH (21:43)
[2018-03-27] MEDS: METOPROLOL TARTRATE 50 MG TAB PO SCH (21:43)
[2018-03-28] MEDS: traMADol 50 MG TAB PO PRN ×5 (00:18→20:21)
[2018-03-28] MEDS: LACTATED RINGERS 1,000 ML IV SCH ×3 (02:59→09:11)
[2018-03-28] MEDS: ONDANSETRON 4 MG/2 ML VIAL IVP PRN ×4 (03:57→23:49)
[2018-03-28] MEDS: LEVOTHYROXINE 75 MCG TAB PO SCH (05:41)
[2018-03-28 07:49] LABS: Basophils % (A) 0 %; Eosinophils # (A) 0.1 k/uL (0-0.7); Eosinophils % (A) 1 %; HCT 34.7 % (34.0-46.0); HGB 11.6 gm/dL (11.4-16.0); Lymphocytes # (A) 1.1 k/uL (1.0-4.8); Lymphocytes % (A) 13 %; MCH 26.7 pg (25.0-35.0); MCHC 33.3 g/dL (31.0-37.0); MCV 80.2 fL (80.0-100.0); Monocytes # (A) 0.7 k/uL (0-1.0); Monocytes % (A) 8 %; Neutrophils # (A) 6.7 k/uL (1.3-7.7); Neutrophils % (A) 76 %; Platelet Count 150 k/uL (150-450); RBC 4.33 m/uL (3.80-5.40); RDW 14.4 % (11.5-15.5); WBC 8.8 k/uL (3.8-10.6)
[2018-03-28 08:01] LABS: ALT 42 U/L (9-52); AST 80 U/L (14-36); Albumin 3.2 g/dL (3.5-5.0); Alkaline Phosphatase 70 U/L (38-126); Anion Gap 11 mmol/L; Blood Urea Nitrogen 19 mg/dL (7-17); Calcium 8.5 mg/dL (8.4-10.2); Carbon Dioxide 20 mmol/L (22-30); Chloride 102 mmol/L (98-107); Glucose 100 mg/dL (74-99); Potassium 4.5 mmol/L (3.5-5.1); Sodium 133 mmol/L (137-145); Total Bilirubin 1.3 mg/dL (0.2-1.3); Total Protein 5.8 g/dL (6.3-8.2)
[2018-03-28] MEDS: MONTELUKAST 10 MG TAB PO SCH (08:18)
[2018-03-28] MEDS: FAMOTIDINE 20 MG TAB PO SCH (08:18)
[2018-03-28] MEDS: ASPIRIN 325 MG TAB PO SCH ×2 (08:18→20:22)
[2018-03-28] MEDS: LISINOPRIL-HCTZ 20-25 MG 1 EACH TAB PO SCH (08:22)
[2018-03-28] MEDS: METOPROLOL TARTRATE 50 MG TAB PO SCH ×2 (08:22→20:22)
[2018-03-28] MEDS: FLUTICASONE 110 MCG INHALER INHALATION SCH ×2 (08:48→19:02)
--- NOTE | 2018-03-28 09:54 | P.PN ---
Subjective Progress Note Date: 03/28/18 This is a 66-year-old male patient of Dr. ac. Patient presents to the emergency room with complaints of a GI bleed. Patient states that this morning he went to the bathroom and noticed bright red blood with his bowel movement. Patient said he had 2 episodes of this at home. Patient proceeded to PCP where he was sent to the emergency room. Patient is currently on xarelato for atrial fibrillation. Additional medical history includes lipidemia, hypertension, myocardial infarction, osteoarthritis, prostate disorder comes skin disorder and sleep apnea. Patient did have colonoscopy in September 2016 in which showed multiple small polyps. Patient denies any alcohol use. Patient denies any change to diet. Patient denies any nausea vomiting. Patient denies any abdominal pain or cramping. Patient's hemoglobin stable at 14.2. GI services have been consulted. EKG has been ordered due to history of atrial fibrillation along with cardiac monitoring. Patient denies chest pain or shortness of breath. Patient denies any urinary burning or frequency. on 03/28/2018patient is currently alert and oriented 3 resting in bed. Patient does complain of moderate amount of pain to right hip site. time patient denies chest pain or shortness of breath. Patient denies nausea vomiting or diarrhea. Patient denies any urinary burning or frequency. Patient does have a low-grade temp 99.2. urinary analysis has been ordered. Objective - Vital Signs Vital signs: Vital Signs Temp 99.1 F 03/28/18 07:00 Pulse 73 03/28/18 07:40 Resp 18 03/28/18 07:40 BP 94/62 03/28/18 07:00 Pulse Ox 94 L 03/28/18 07:00 Intake & Output 03/27/18 03/28/18 03/28/18 18:59 06:59 18:59 Intake Total 1317 2458 Output Total 200 Balance 1117 2458 Weight 81.647 kg Intake: IV 1057 Intake, IV Titration 260 1140 Amount Clindamycin 900 mg In 50 Dextrose 5% in Water 50 ml @ 50 mls/hr IVPB ONCE [facility] Rx#:[id number] Clindamycin 900 mg In 50 Dextrose 5% in Water 50 ml @ 50 mls/hr IVPB Q8HR [facility] Rx#:[id number] Sodium Chloride 0.9% 1, 260 1040 000 ml @ 65 mls/hr IV . [id number] [facility] Rx#:[id number] Oral 1318 Output: Estimated Blood Loss 200 Other: # Voids 2 - Exam Head normocephalic Neck supple Lungs clear to auscultation bilaterally no wheezing or crackles Heart regular rate and rhythm S1-S2, no rub or gallop Abdomen is soft nontender nondistended positive bowel sounds no hepatosplenomegaly Extremities no edema. right hip dressing clean dry and intact Neuro alert and orientated to 3 - Labs CBC & Chem 7: 03/28/18 07:21 03/28/18 07:21 Labs: Abnormal Lab Results - Last 24 Hours (Table) 03/28/18 Range/Units 07:21 Sodium 133 L (137-145) mmol/L Carbon Dioxide 20 L (22-30) mmol/L BUN 19 H (7-17) mg/dL Glucose 100 H (74-99) mg/dL AST 80 H (14-36) U/L Total Protein 5.8 L (6.3-8.2) g/dL Albumin 3.2 L (3.5-5.0) g/dL Assessment and Plan Assessment: 1. Status post total right hip arthroplasty with Dr. Nuno. Patient is currently on aspirin 325 twice a day. pain meds per surgical services 2. History of COPD. Home medications resumed 3. History of hyperlipidemia. Home medications resumed 4. History of essential hypertension. Patient maintained on Lopressor and lisinopril.parameters given for blood pressure medications 5. History of osteoarthritis 6. History of hypothyroidism. Synthroid resumed 7. Elevated AST. AST is 80. patient does appear to have elevated liver enzymes in the past. We'll continue to monitor closely 8. low-grade temp 99.2. urinary analysis has been ordered DVT prophylaxis aspirin. GI prophylaxis Pepcid thank you for this consultation we will continue to follow patient closely throughout stay A.m. labs have been ordered. Patient planning to be discharged home when cleared I performed an examination of the patient and discussed their management with the Nurse Practitioner. I have reviewed the Nurse Practitioner's notes and agree with the documented findings and plan of care
[2018-03-28] MEDS: MORPHINE SULFATE 2 MG/ML SYRINGE IVP PRN ×3 (10:23→21:56)
[2018-03-28 10:41] LABS: Appearance,Urine Clear (Clear); Bilirubin,Urine Negative (Negative); Blood,Urine Negative (Negative); Color,Urine Light Yellow; Glucose,Urine (UA) Negative (Negative); Ketones,Urine Negative (Negative); Leukocyte Esterase,Urine Negative (Negative); Nitrite,Urine Negative (Negative); Protein,Urine Negative (Negative); Specific Gravity,Urine 1.005 (1.001-1.035); Urobilinogen,Urine <2.0 mg/dL (<2.0)
[2018-03-28] MEDS: MULTIVITAMINS, THERA 1 EACH TAB PO SCH (11:59)
--- NOTE | 2018-03-28 12:09 | P.PN ---
Subjective Progress Note Date: 03/28/18 This is a 62-year-old female who is status post right total hip arthroplasty. This is postoperative day #1. Patient is seen and evaluated at bedside with Dr. Montrell Nuno. Patient states that her hip is very painful today and tramadol is not working. Patient denies any fever/chills, numbness, weakness, tingling, abdominal pain, shortness of breath or chest pain. Objective - Vital Signs Vital signs: Vital Signs Temp 99.1 F 03/28/18 07:00 Pulse 73 03/28/18 07:40 Resp 18 03/28/18 07:40 BP 94/62 03/28/18 07:00 Pulse Ox 94 L 03/28/18 07:00 Intake & Output 03/27/18 03/28/18 03/28/18 18:59 06:59 18:59 Intake Total 1317 2458 Output Total 200 Balance 1117 2458 Weight 81.647 kg Intake: IV 1057 Intake, IV Titration 260 1140 Amount Clindamycin 900 mg In 50 Dextrose 5% in Water 50 ml @ 50 mls/hr IVPB ONCE [facility] Rx#:[id number] Clindamycin 900 mg In 50 Dextrose 5% in Water 50 ml @ 50 mls/hr IVPB Q8HR [facility] Rx#:[id number] Sodium Chloride 0.9% 1, 260 1040 000 ml @ 65 mls/hr IV . [id number] [facility] Rx#:[id number] Oral 1318 Output: Estimated Blood Loss 200 Other: # Voids 2 - Exam Vital signs are stable. Patient is in no acute distress and is alert and oriented 3. Calf is soft and nontender to palpation. Dressing is clean, dry, and intact. Patient has full foot and ankle motion without pain or difficulty. Neurovascular status and circulatory status are intact. - Labs CBC & Chem 7: 03/28/18 07:21 03/28/18 07:21 Labs: Abnormal Lab Results - Last 24 Hours (Table) 03/28/18 Range/Units 07:21 Sodium 133 L (137-145) mmol/L Carbon Dioxide 20 L (22-30) mmol/L BUN 19 H (7-17) mg/dL Glucose 100 H (74-99) mg/dL AST 80 H (14-36) U/L Total Protein 5.8 L (6.3-8.2) g/dL Albumin 3.2 L (3.5-5.0) g/dL Assessment and Plan (1) Primary osteoarthritis of right hip Current Visit: Yes Status: Acute Code(s): M16.11 - UNILATERAL PRIMARY OSTEOARTHRITIS, RIGHT HIP SNOMED Code(s): 282761556 (2) Status post right hip replacement Current Visit: Yes Status: Acute Code(s): Z96.641 - PRESENCE OF RIGHT ARTIFICIAL HIP JOINT SNOMED Code(s): 320370089 Plan: Continue routine postop care and pain control. We will adjust pain medication. Continue antocoagulation. Weightbearing as tolerated with a walker Leave dressing in place for 10 days. Likely discharge home tomorrow.
[2018-03-28] MEDS: SENNOSIDES-DOCUSATE SODIUM 1 EACH TAB PO SCH (20:22)
[2018-03-28] MEDS ORDERED: IBUPROFEN 800 MG TAB PO PRN (20:47)
[2018-03-28] MEDS: CLINDAMYCIN 600 MG in DEXTROSE 5% IN WATER 50 ML IVPB SCH ×2 (23:49)
[2018-03-29 01:08] VITALS: RESP 16
[2018-03-29] MEDS: traMADol 50 MG TAB PO PRN (02:28)
[2018-03-29] MEDS: MORPHINE SULFATE 2 MG/ML SYRINGE IVP PRN (04:31)
[2018-03-29] MEDS: LEVOTHYROXINE 75 MCG TAB PO SCH (05:32)
[2018-03-29] MEDS: SODIUM CHLORIDE 0.9% 1,000 ML IV SCH ×3 (07:07→07:17)
[2018-03-29] MEDS: CLINDAMYCIN 600 MG in DEXTROSE 5% IN WATER 50 ML IVPB SCH ×2 (07:08)
[2018-03-29] MEDS: ONDANSETRON 4 MG/2 ML VIAL IVP PRN (07:13)
[2018-03-29 07:31] VITALS: BP 100/42; PULSE 77; TEMP 98
[2018-03-29] MEDS: FLUTICASONE 110 MCG INHALER INHALATION SCH (07:51)
[2018-03-29] MEDS: LISINOPRIL-HCTZ 20-25 MG 1 EACH TAB PO SCH (08:36)
[2018-03-29] MEDS: METOPROLOL TARTRATE 50 MG TAB PO SCH (08:36)
[2018-03-29] MEDS: ASPIRIN 325 MG TAB PO SCH (08:39)
[2018-03-29] MEDS: FAMOTIDINE 20 MG TAB PO SCH (08:40)
[2018-03-29] MEDS: MULTIVITAMINS, THERA 1 EACH TAB PO SCH (08:40)
[2018-03-29] MEDS: LACTATED RINGERS 1,000 ML IV SCH (08:40)
[2018-03-29] MEDS: MONTELUKAST 10 MG TAB PO SCH (08:40)
--- NOTE | 2018-03-29 09:08 | P.DS ---
Providers Date of admission: 03/27/18 05:35 Expected date of discharge: 03/29/18 Attending physician: Montrell Nuno Consults: 03/27/18 06:55 Consult Physician Routine Consulting Provider: Deana Baker Consult Reason/Comments: medical management Do you want consulting provider notified?: Yes Primary care physician: Tova Mcghee - Discharge Diagnosis(es) (1) Primary osteoarthritis of right hip Current Visit: Yes Status: Acute (2) Status post right hip replacement Current Visit: Yes Status: Acute Hospital Course: This is a 62-year-old female with known history of degenerative arthritis of the right hip. The patient presents for evaluation. After discussion and consideration patient elects to proceed with total hip arthroplasty. The patient is seen preoperatively by Dr. Nuno and medically cleared for surgery by their primary care physician. Patient is admitted to [facility] on 04/06/2018 for total hip arthroplasty. The procedures performed without complication or sequelae. The patient is doing well postoperatively. Labs and vital signs are stable on day of discharge. Patient refused any prescription for pain medication upon discharge. On day of discharge patient's hip incision is healing well. There is minimal erythema. There is no drainage noted at this time. There is minimal soft tissue swelling to the hip and thigh. Patient has full foot and ankle motion without difficulty or pain. Neurovascular status to the right lower extremity is intact. Patient is discharged home in good condition. Please see med rec for accurate list of home medications. Plan - Discharge Summary Discharge Rx Participant: Yes New Discharge Prescriptions: New Aspirin 325 mg PO BID #60 tab Sennosides [Senokot] 1 tab PO BID #60 tablet No Action Lisinopril/Hydrochlorothiazide [Zestoretic 20-25] 1 tab PO DAILY Montelukast [Singulair] 10 mg PO DAILY Multivit-Min/FA/Lycopen/Lutein [Centrum Silver Tablet] 1 tab PO DAILY Levothyroxine Sodium [Synthroid] 75 mcg PO DAILY Ezetimibe [Zetia] 10 mg PO HS Metoprolol Tartrate [Lopressor] 50 mg PO BID Beclomethasone Dip 80 Mcg/Puff [Qvar 80 mcg] 2 puff INHALATION RT-BID Naproxen Sodium [Aleve] 220 mg PO DAILY PRN PRN Reason: Pain Discharge Medication List Lisinopril/Hydrochlorothiazide [Zestoretic 20-25] 1 tab PO DAILY 09/20/15 [ History] Montelukast [Singulair] 10 mg PO DAILY 08/18/16 [History] Multivit-Min/FA/Lycopen/Lutein [Centrum Silver Tablet] 1 tab PO DAILY 01/06/18 [ History] Beclomethasone Dip 80 Mcg/Puff [Qvar 80 mcg] 2 puff INHALATION RT-BID 03/15/18 [ History] Ezetimibe [Zetia] 10 mg PO HS 03/15/18 [History] Levothyroxine Sodium [Synthroid] 75 mcg PO DAILY 03/15/18 [History] Metoprolol Tartrate [Lopressor] 50 mg PO BID 03/15/18 [History] Naproxen Sodium [Aleve] 220 mg PO DAILY PRN 03/15/18 [History] Aspirin 325 mg PO BID #60 tab 03/29/18 [Rx] Sennosides [Senokot] 1 tab PO BID #60 tablet 03/29/18 [Rx] Follow up Appointment(s)/Referral(s): Tova Mcghee MD [Primary Care Provider] - 1 Week [facility], [NON-STAFF] - Montrell Nuno DO [Doctor of Osteopathic Medicine] - 04/10/18 2:45 pm Patient Instructions/Handouts: Anterior Hip Replacement (DC) Activity/Diet/Wound Care/Special Instructions: Weightbearing as tolerated with walker Leave dressing intact. Dressing may be removed by home care nurse in 10 days. May shower with dressing on. Follow-up with [facility] in 2 weeks, please call with any questions or concerns [phone] Discharge Disposition: HOME WITH HOME HEALTH SERVICES
[2018-03-29 11:36] LABS: Basophils % (A) 0 %; Eosinophils # (A) 0.1 k/uL (0-0.7); Eosinophils % (A) 1 %; HCT 30.8 % (34.0-46.0); HGB 10.1 gm/dL (11.4-16.0); Lymphocytes # (A) 0.9 k/uL (1.0-4.8); Lymphocytes % (A) 10 %; MCH 26.3 pg (25.0-35.0); MCHC 32.7 g/dL (31.0-37.0); MCV 80.5 fL (80.0-100.0); Mean Platelet Volume 8.8; Monocytes # (A) 0.8 k/uL (0-1.0); Monocytes % (A) 9 %; Neutrophils # (A) 7.3 k/uL (1.3-7.7); Neutrophils % (A) 79 %; Platelet Count 128 k/uL (150-450); RBC 3.83 m/uL (3.80-5.40); RDW 14.4 % (11.5-15.5); WBC 9.2 k/uL (3.8-10.6)
[2018-03-29 11:53] LABS: ALT 71 U/L (9-52); AST 89 U/L (14-36); Albumin 2.9 g/dL (3.5-5.0); Alkaline Phosphatase 96 U/L (38-126); Anion Gap 9 mmol/L; Blood Urea Nitrogen 15 mg/dL (7-17); Calcium 8.1 mg/dL (8.4-10.2); Carbon Dioxide 23 mmol/L (22-30); Chloride 104 mmol/L (98-107); Glucose 115 mg/dL (74-99); Potassium 4.3 mmol/L (3.5-5.1); Sodium 136 mmol/L (137-145); Total Bilirubin 1.3 mg/dL (0.2-1.3); Total Protein 5.4 g/dL (6.3-8.2)
--- NOTE | 2018-03-29 13:24 | P.PN ---
Subjective Progress Note Date: 03/29/18 This is a 66-year-old male patient of Dr. ac. Patient presents to the emergency room with complaints of a GI bleed. Patient states that this morning he went to the bathroom and noticed bright red blood with his bowel movement. Patient said he had 2 episodes of this at home. Patient proceeded to PCP where he was sent to the emergency room. Patient is currently on xarelato for atrial fibrillation. Additional medical history includes lipidemia, hypertension, myocardial infarction, osteoarthritis, prostate disorder comes skin disorder and sleep apnea. Patient did have colonoscopy in September 2016 in which showed multiple small polyps. Patient denies any alcohol use. Patient denies any change to diet. Patient denies any nausea vomiting. Patient denies any abdominal pain or cramping. Patient's hemoglobin stable at 14.2. GI services have been consulted. EKG has been ordered due to history of atrial fibrillation along with cardiac monitoring. Patient denies chest pain or shortness of breath. Patient denies any urinary burning or frequency. on 03/28/2018patient is currently alert and oriented 3 resting in bed. Patient does complain of moderate amount of pain to right hip site. time patient denies chest pain or shortness of breath. Patient denies nausea vomiting or diarrhea. Patient denies any urinary burning or frequency. Patient does have a low-grade temp 99.2. urinary analysis has been ordered. on 03/29/2018 patient is currently alert and oriented 3. Patient states her to go home. Patient did have a temp of 102.5 yesterday. orthopedic services were notified. Per orthopedic services, today incision site looks good and patient is cleared for discharge. patient has been afebrile. White blood cell count within normal limits. Patient denies chest pain or shortness of breath. Patient denies any urinary burning or frequency. Patient denies nausea vomiting or diarrhea Objective - Vital Signs Vital signs: Vital Signs Temp 98 F 03/29/18 07:31 Pulse 77 03/29/18 07:31 Resp 16 03/29/18 07:45 BP 100/42 03/29/18 07:31 Pulse Ox 94 L 03/29/18 07:31 Intake & Output 03/28/18 03/29/18 03/29/18 18:59 06:59 18:59 Intake Total 455 2580 375 Balance 455 2580 375 Intake: Intake, IV Titration 455 1090 Amount Clindamycin 600 mg In 50 Dextrose 5% in Water 50 ml @ 50 mls/hr IVPB Q8HR [facility] Rx#:[id number] Sodium Chloride 0.9% 1, 455 1040 000 ml @ 65 mls/hr IV . [id number] [facility] Rx#:[id number] Oral 1490 375 Other: # Voids 4 - Exam Head normocephalic Neck supple Lungs clear to auscultation bilaterally no wheezing or crackles Heart regular rate and rhythm S1-S2, no rub or gallop Abdomen is soft nontender nondistended positive bowel sounds no hepatosplenomegaly Extremities no edema. right hip dressing clean dry and intact. bruising noted to right hip site Neuro alert and orientated to 3 - Labs CBC & Chem 7: 03/29/18 10:00 03/29/18 10:00 Labs: Abnormal Lab Results - Last 24 Hours (Table) 03/29/18 03/29/18 Range/Units 10:00 10:00 Hgb 10.1 L (11.4-16.0) gm/dL Hct 30.8 L (34.0-46.0) % Plt Count 128 L (150-450) k/uL Lymphocytes # 0.9 L (1.0-4.8) k/uL Sodium 136 L (137-145) mmol/L Glucose 115 H (74-99) mg/dL Calcium 8.1 L (8.4-10.2) mg/dL AST 89 H (14-36) U/L ALT 71 H (9-52) U/L Total Protein 5.4 L (6.3-8.2) g/dL Albumin 2.9 L (3.5-5.0) g/dL Assessment and Plan Assessment: 1. Status post total right hip arthroplasty with Dr. Nuno. Patient is currently on aspirin 325 twice a day. pain meds per surgical services 2. History of COPD. Home medications resumed 3. History of hyperlipidemia. Home medications resumed 4. History of essential hypertension. Patient maintained on Lopressor and lisinopril.parameters given for blood pressure medications. lisinopril hydrochlorothiazide discontinued upon discharge due to lower blood pressure. Metroprolol resumed. Patient to follow-up closely with PCP 5. History of osteoarthritis 6. History of hypothyroidism. Synthroid resumed 7. Elevated liver enzymes.AST 89 and ALT 71. Patient does appear to have elevated liver enzymes in the past. Patient's home medication of zetia discontinued. Repeat CMP ordered for 2 days. Patient instructed to follow-up closely with PCP. 8. febrile. Patient did have a temp 102.5. Orthopedic services were notified. Patient did receive clindamycin. Per orthopedic surgical services site does not appear to be infected. Patient has been cleared for discharge. Urinary analysis negative. Patient has been afebrile. White blood cell within normal limits. Patient instructed to monitor temperature at home and to notify or return to emergency room if patient has elevated temperature. 9. hypotension. Blood pressure systolic 90 to low 100s. Patient's home lisinopril hydrochlorothiazide discontinued. Metroprolol resumed. Patient instructed to follow-up closely with primary care provider DVT prophylaxis aspirin. GI prophylaxis Pepcid thank you for this consultation we will continue to follow patient closely throughout stay CBC and CMP ordered for 2 days I performed an examination of the patient and discussed their management with the Nurse Practitioner. I have reviewed the Nurse Practitioner's notes and agree with the documented findings and plan of care
== END 2018-03-29 13:28 | disposition home health service (06) | DRG 470 ==
LOC: 2ORMAIN 05:35 → 3SUR 09:59
PROVIDERS: ADMIT Orthopaedic Surgery; ATTEND Orthopaedic Surgery
PROC: 0SR906A Replacement of Right Hip Joint with Oxidized Zirconium on Polyethylene Synthetic Substitute, Uncemented, Open Approach (ICD-10-PCS; principal; 2018-03-27 07:00)
DX: M16.11 Unilateral primary osteoarthritis, right hip (principal); E03.9 Hypothyroidism, unspecified; E78.5 Hyperlipidemia, unspecified; G47.30 Sleep apnea, unspecified; I10 Essential (primary) hypertension; I25.2 Old myocardial infarction; Z79.890 Hormone replacement therapy; Z79.899 Other long term (current) drug therapy; J44.9 Chronic obstructive pulmonary disease, unspecified; Z66 Do not resuscitate; Z80.3 Family history of malignant neoplasm of breast; Z82.49 Family history of ischemic heart disease and other diseases of the circulatory system; Z82.5 Family history of asthma and other chronic lower respiratory diseases; Z87.891 Personal history of nicotine dependence; Z90.710 Acquired absence of both cervix and uterus; R94.5 Abnormal results of liver function studies; I95.9 Hypotension, unspecified; R50.9 Fever, unspecified; M48.061 Spinal stenosis, lumbar region without neurogenic claudication; Z98.1 Arthrodesis status; M54.16 Radiculopathy, lumbar region; Z88.6 Allergy status to analgesic agent; Z88.1 Allergy status to other antibiotic agents; Z88.5 Allergy status to narcotic agent; Z88.0 Allergy status to penicillin; Z88.8 Allergy status to other drugs, medicaments and biological substances; F40.240 Claustrophobia
CPT/HCPCS: 73501; 80053; 81003; 85025; 86850; 86891; 86900; 86901; 88300; 94640

== ENCOUNTER → 2022-12-23 | Outpatient (CLI) | payer MEDICARE ==
--- NOTE | 2022-12-23 14:03 | US ---
EXAMINATION TYPE: US kidneys/renal and bladder DATE OF EXAM: 12/23/2022 COMPARISON: Renal ultrasound 01/25/2018 CLINICAL INDICATION: Female, 67 years old with history of N28.1 CYST OF KIDNEY; Hx renal cysts. EXAM MEASUREMENTS: Right Kidney: 9.6 x 4.9 x 4.9 cm Left Kidney: 10.7 x 4.2 x 4.9 cm Right Kidney: Multiple cysts seen throughout kidney. Largest two measured. 1= Lat inf = 2.2 x 2.0 x 2.1 cm and 2= Sup mid= 1.0 x 1.1 x 1.3 cm. Left Kidney: Multiple cysts seen throughout kidney. Largest two measured. 1= Lat inf= 1.1 x 1.1 x 1 .1 cm and 2= Lat mid= 1.2 x 0.8 x 0.8 cm. Bladder: distended, anechoic Bilateral Jets not seen There is no evidence for hydronephrosis at this point in time. No nephrolithiasis is seen. Bilatera l simple appearing cysts identified. No solid masses are identified. Cortical medullary differentiati on is maintained. The urinary bladder is anechoic. Bilateral ureteral jets are not seen. IMPRESSION: 1. No hydronephrosis or nephrolithiasis is identified. 2. Bilateral simple appearing cysts redemonstrated.
== END | disposition home or self-care (01) ==
LOC: RADUSWWP 13:21
PROVIDERS: ATTEND Family Medicine
DX: N28.1 Cyst of kidney, acquired (principal)
CPT/HCPCS: 76770